=== PATIENT | male | born 1970 | race African-American/Black ===

== ENCOUNTER 2019-11-11 13:07 | Inpatient (IN) | payer SELFPAY ==
[2019-11-11] MEDS ORDERED: NA CHLORIDE 0.9% 1,000 ML ONE ×2 (13:37→15:11)
--- NOTE | 2019-11-11 14:25 | RAD REPORT ---
EXAM DESCRIPTION: RAD - Chest Single View - 11/11/2019 2:04 pm CLINICAL HISTORY: DYSPNEA COMPARISON: No comparisons TECHNIQUE: AP portable chest image was obtained 11/11/2019 2:04 pm . FINDINGS: Mid and lower right lung field parenchymal opacification present. This is most likely pneu monia. This could be infectious or aspiration. Left lung volume is reduced. No acute left lung parenc hymal finding confirmed. There is some patchy opacification in the medial retrocardiac left base. Trach tube is in place. Trachea is midline. Heart and vasculature are normal. No measurable pleural e ffusion and no pneumothorax. No acute bone findings seen. Scoliotic curvature is present in the spine . No acute aortic findings suspected. IMPRESSION: Baseline study showing mid and lower right lung field opacification most likely pneumoni a. Minimal left base opacification could be a minimal infiltrate or baseline parenchymal stranding.
[2019-11-11] MEDS ORDERED: ACETAMINOPHEN 650MG/RECT SUPP PR ONE ×2 (14:34→15:05)
[2019-11-11 14:38] LABS: Absolute Lymphocytes (CBC) 0.8 K/uL (0.7-4.9); Basophils % 0.2 % (0-1.3); Lymphocytes % 4.7 % (15.3-44.8); MPV 7.6 fL (7.6-11.3)
[2019-11-11 14:41] LABS: Protime INR 1.44
[2019-11-11 15:07] LABS: ALT/SGPT 83 U/L (12-78); AST/SGOT 40 U/L (15-37); Albumin 2.6 g/dL (3.4-5.0); Alkaline Phosphatase 74 U/L (45-117); Amylase Level 56 U/L (25-115); BUN Blood Urea Nitrogen 15 mg/dL (7-18); Bicarbonate 33 mmol/L (21-32); Bilirubin Direct 0.1 mg/dL (0-0.2); Bilirubin Total 0.4 mg/dL (0.2-1.0); CKMB Creatine Kinase MB 2.1 ng/mL (0.3-3.6); Creatine Phosphokinase 95 U/L (39-308); Glucose Level 81 mg/dL (74-106); Lipase 33 U/L (73-393); Potassium 3.9 mmol/L (3.5-5.1); Protein, Total 7.3 g/dL (6.4-8.2); Sodium Level 138 mmol/L (136-145); Troponin (Emerg Dept Use Only) < 0.02 ng/mL (0.0-0.045)
[2019-11-11 15:16] LABS: Urine Blood 1+ (NEG); Urine Glucose NEGATIVE (NEG); Urine Protein TRACE (NEG); Urine pH 8.5 (5.0-7.0)
--- NOTE | 2019-11-11 15:21 | EDPHYS ---
Physician Documentation [facility] Name: Ulises Cervantes Age: 49 yrs Sex: Male : 1970 Arrival Date: 11/11/2019 Time: 13:11 Bed 25 Private MD: ED Physician Javed Chung HPI: 11/11 13:30 This 49 yrs old Black Male presents to ER via EMS with complaints of fever. cp 13:30 The patient reports fever, with an emergency department temperature of 100.4 degrees cp Fahrenheit. Onset: The symptoms/episode began/occurred today. Associated signs and symptoms: Pertinent positives: cough. Unable to obtain HPI due to patient non-verbal. Historical: - Allergies: 13:45 tomato; mg2 - PMHx: 13:45 respiratory failure; tracheostomy in situ; aspiration pneumnonia; gastrostomy tube in mg2 situ; - Immunization history:: Flu vaccine status is unknown. - Social history:: Smoking status: unknown. ROS: 13:35 Constitutional: Positive for fever. cp 13:35 Respiratory: Positive for cough. cp 13:35 Unable to obtain ROS due to patient non-verbal. Exam: 13:40 Constitutional: The patient appears in no acute distress, alert, awake, cp non-diaphoretic, non-toxic, well developed, well nourished, obviously ill, restless. 13:40 Head/Face: Normocephalic, atraumatic. cp 13:40 Eyes: Periorbital structures: appear normal, Pupils: equal, round, and reactive to light and accomodation, Conjunctiva: normal, no exudate, no injection, Sclera: no appreciated abnormality, Lids and lashes: appear normal, bilaterally. 13:40 ENT: External ear(s): are unremarkable, Nose: is normal, Mouth: Lips: dry, Oral mucosa: moist, Posterior pharynx: Airway: no evidence of obstruction, patent. 13:40 Neck: External neck: tracheostomy noted, ROM/movement: Meningeal signs: are not present, nuchal rigidity, is not appreciated. 13:40 Chest/axilla: Inspection: normal, Palpation: is normal, no crepitus, no tenderness. 13:40 Cardiovascular: Rate: tachycardic, Rhythm: regular, Edema: is not appreciated, JVD: is not appreciated. 13:40 Respiratory: mild respiratory distress is noted, Respirations: labored breathing, that is mild, Breath sounds: rhonchi, that are moderate, are heard in the right posterior middle lobe and right posterior lower lobe, + upper airway congestion. 13:40 Abdomen/GI: Inspection: abdomen appears normal, Palpation: abdomen is soft and non-tender, in all quadrants, involuntary guarding, is not appreciated. 13:40 Skin: cellulitis, is not appreciated, no rash present. 13:40 Neuro: Orientation: unable to test, patient non-verbal, Motor: moves all fours. 13:45 ECG was reviewed by the Attending Physician. Vital Signs: 13:10 BP 102 / 62; Pulse 116; Resp 24; Temp 100.4(O); Pulse Ox 100% on Non-rebreather mask; mg2 14:00 BP 113 / 78; Pulse 115; Resp 22; Temp 100.5; Pulse Ox 98% on Non-rebreather mask; mg2 14:14 Weight 68.04 kg; mg2 15:14 BP 102 / 68; Pulse 122; Resp 22; Temp 100.5; Pulse Ox 100% on Non-rebreather mask; mg2 16:11 BP 114 / 79; Pulse 112; Resp 22; Temp 99.1(O); Pulse Ox 98% on Non-rebreather mask; mg2 14:14 estimated mg2 MDM: 13:16 Patient medically screened. 13:30 Differential diagnosis: viral Infection, bacterial infection, pneumonia UTI, cp meningitis, sepsis. 15:20 Data reviewed: vital signs, nurses notes, lab test result(s), EKG, radiologic studies, cp plain films, I have discussed the patient's presentation/case with the attending Emergency Department Physician; and as a result, I will admit patient. Physician consultation: Kamaljit Loya DO was called at 15:15, was contacted at 15:15, regarding admission, to the medical/surgical unit. patient's condition. 15:25 Post IV fluid administration reassessment for Sepsis: Focused Assessment performed: November 11, 2019 at 15:25 Heart: Regular rate/rhythm noted. Lungs: Rhonchi noted. Current vital signs reviewed: Yes. Neuro: Neurological examination did not improve from previous exam. Respiratory: Respiratory exam improved from previous exam. 11/11 13:11 Order name: Amylase, Serum; Complete Time: 15:11 mg2 11/11 13:11 Order name: Basic Metabolic Panel; Complete Time: 15:11 mg2 11/11 16:35 Interpretation: Normal except: CO2 33; CA 8.1. cp 11/11 13:11 Order name: Blood Culture Adult (2) mg2 11/11 13:11 Order name: CBC with Diff; Complete Time: 16:34 mg2 11/11 15:12 Interpretation: Normal except: WBC 16.0; RBC 3.70; HGB 10.5; HCT 31.0; MPV 7.6; LUIS% cp 88.5; LYM% 4.7; NEUT A 14.1. 11/11 13:11 Order name: Ckmb; Complete Time: 15:11 mg2 11/11 13:11 Order name: CPK; Complete Time: 15:11 mg2 11/11 13:11 Order name: Lactate; Complete Time: 14:57 mg2 11/11 16:36 Interpretation: Within normal limits: LAC 1.0. cp 11/11 13:11 Order name: LFT's; Complete Time: 15:11 mg2 11/11 16:35 Interpretation: Normal except: AST 40; ALT 83; ALB 2.6; GLOB 4.7; A/G 0.6. cp 11/11 13:11 Order name: Lipase; Complete Time: 15:11 mg2 11/11 13:11 Order name: Procalcitonin; Complete Time: 16:34 mg2 11/11 16:34 Interpretation: Within normal limits: Procalcitonin 0.14. cp 11/11 13:11 Order name: Protime (+inr); Complete Time: 14:57 mg2 11/11 13:11 Order name: Ptt, Activated; Complete Time: 14:57 mg2 11/11 13:11 Order name: Troponin (emerg Dept Use Only); Complete Time: 15:11 mg2 11/11 13:11 Order name: Urine Microscopic Only; Complete Time: 16:34 mg2 11/11 16:34 Interpretation: Normal except: URBC 10-20; UBACT 20-50; SQEPI 5-10; AMORPH 4+. cp 11/11 13:11 Order name: Chest Single View XRAY; Complete Time: 14:57 mg2 11/11 14:57 Interpretation: Report review. cp 11/11 13:11 Order name: Accucheck; Complete Time: 13:46 mg2 11/11 13:11 Order name: Cardiac monitoring; Complete Time: 13:46 mg2 11/11 13:11 Order name: EKG - Nurse/Tech; Complete Time: 13:46 mg2 11/11 13:11 Order name: IV Saline Lock - Large Bore; Complete Time: 13:46 mg2 11/11 13:32 Order name: Influenza Screen (a \T\ B); Complete Time: 14:57 cp 11/11 14:03 Order name: Glucose, Ancillary Testing; Complete Time: 14:57 EDMS 11/11 14:45 Order name: CBC Smear Scan; Complete Time: 16:34 EDMS 11/11 15:14 Order name: Urine Dipstick--Ancillary (enter results); Complete Time: 16:34 dh4 11/11 16:53 Order name: Blood Culture EDID 11/11 17:19 Order name: ABG Arterial Blood Gas EDID 11/11 13:11 Order name: Labs collected and sent; Complete Time: 13:46 mg2 11/11 13:11 Order name: O2 Per Protocol; Complete Time: 13:46 mg2 11/11 13:11 Order name: O2 Sat Monitoring; Complete Time: 13:46 mg2 11/11 13:11 Order name: Urine Dipstick-Ancillary (obtain specimen); Complete Time: 15:13 mg2 EC:45 Rate is 115 beats/min. Rhythm is regular. LA interval is normal. QRS interval is cp normal. QT interval is normal. Interpreted by me. Reviewed by me. Administered Medications: 13:20 Drug: NS 0.9% (30 ml/kg) 30 ml/kg Route: IV; Rate: bolus; Site: right antecubital; mg2 16:30 Follow up: Response: No adverse reaction; IV Status: Completed infusion; IV Intake: mg2 2000ml 15:12 CANCELLED (Physician Discretion): Clindamycin 900 mg IVPB once over 30 mins; (mix in 50 cp mL) 15:14 Drug: Tylenol Suppository 650 mg Route: LA; mg2 16:17 Follow up: Response: No adverse reaction; Temperature is decreased mg2 15:16 CANCELLED (Physician Discretion): vancoMYCIN 1 grams IVPB once over 2 hrs cp 15:30 Drug: Zosyn 3.375 grams Route: IVPB; Infused Over: 60 mins; Site: left forearm; mg2 17:05 Follow up: Response: No adverse reaction; IV Status: Completed infusion mg2 Disposition: 15:30 Chart complete. cp Disposition: 11/11/19 15:19 Hospitalization ordered by Kamaljit Loya for Inpatient Admission. Preliminary diagnosis are Pneumonia due to other specified bacteria, Other sepsis. - Bed requested for Intensive Care Unit. - Status is Inpatient Admission. mg2 - Condition is Stable. - Problem is new. - Symptoms have improved. Addendum: 11/13/2019 17:49 Co-signature as Attending Physician, Javed Chung MD I agree with the assessment and c watkins plan of care. Signatures: Dispatcher [employer] Lily Alex RN RN dw Anderson, Corey, MD MD cha Page, Corey, PA PA cp Chava Bernstein RN RN mg2 Corrections: (The following items were deleted from the chart) 11/11 15:12 14:59 Clindamycin 900 mg IVPB once over 30 mins; (mix in 50 mL) ordered. cp cp 15:16 14:59 vancoMYCIN 1 grams IVPB once over 2 hrs ordered. cp cp 16:02 15:19 Hospitalization Ordered by Kamaljit Loya DO for Inpatient Admission. Preliminary dw diagnosis is Pneumonia due to other specified bacteria; Other sepsis. Bed requested for Telemetry/MedSurg (Inpatient). Status is Inpatient Admission. Condition is Stable. Problem is new. Symptoms have improved. cp 16:05 16:02 11/11/2019 15:19 Hospitalization Ordered by Kamaljit Loya DO for Inpatient dw Admission. Preliminary diagnosis is Pneumonia due to other specified bacteria; Other sepsis. Bed requested for Telemetry/MedSurg (Inpatient). Status is Inpatient Admission. Condition is Stable. Problem is new. Symptoms have improved. dw 16:35 15:11 Normal except: CO2 33. cp cp 17:02 16:05 11/11/2019 15:19 Hospitalization Ordered by Kamaljit Loya DO for Inpatient dw Admission. Preliminary diagnosis is Pneumonia due to other specified bacteria; Other sepsis. Bed requested for Telemetry/MedSurg (Inpatient). Status is Inpatient Admission. Condition is Stable. Problem is new. Symptoms have improved. dw 17:43 17:02 11/11/2019 15:19 Hospitalization Ordered by Kamaljit Loya DO for Inpatient mg2 Admission. Preliminary diagnosis is Pneumonia due to other specified bacteria; Other sepsis. Bed requested for Intensive Care Unit. Status is Inpatient Admission. Condition is Stable. Problem is new. Symptoms have improved. dw
--- NOTE | 2019-11-11 15:21 | ER ---
Nurse's Notes [facility] Name: Ulises Cervantes Age: 49 yrs Sex: Male : 1970 Arrival Date: 11/11/2019 Time: 13:11 Bed 25 Private MD: Diagnosis: Pneumonia due to other specified bacteria;Other sepsis Presentation: 11/11 13:10 Chief complaint: EMS states: he is from [place] and he has fever and had aspiration mg2 pneumonia before. Temp- 100.1, sat- 92%RA, BP of 90/56,. BGL- 161 mg/dl. Coronavirus screen: The patient has NOT traveled to [place] in the past 14 days. Proceed with normal triage procedures. Ebola Screen: No symptoms or risks identified at this time. Initial Sepsis Screen: Does the patient meet any 2 criteria? RR > 20 per min. HR > 90 bpm. Yes Does the patient have a suspected source of infection? Yes: Productive cough/pneumonia. Risk Assessment: Do you want to hurt yourself or someone else? Patient reports no desire to harm self or others. 13:10 Method Of Arrival: EMS: [facility] mg2 13:10 Acuity: KEZIA 2 mg2 13:10 Onset of symptoms was October 2019. mg2 13:10 Care prior to arrival: Medication(s) given: Normal saline infusion, 100 IV initiated. mg2 20 GA, in the left forearm. Historical: - Allergies: 13:45 tomato; mg2 - PMHx: 13:45 respiratory failure; tracheostomy in situ; aspiration pneumnonia; gastrostomy tube in mg2 situ; - Immunization history:: Flu vaccine status is unknown. - Social history:: Smoking status: unknown. Screenin:52 Abuse screen: Denies threats or abuse. Denies injuries from another. Tuberculosis mg2 screening: No symptoms or risk factors identified. Fall Risk IV access (20 points). Mental Status- Overestimates/Forgets Limitations (15 pts.). 15:52 Nutritional screening: No deficits noted. mg2 Assessment: 13:50 General: Appears emaciated, malnourished, Behavior is calm. Pain: Unable to use pain mg2 scale. Patient appears quiet. Neuro: Level of Consciousness is awake, confused. Cardiovascular: Capillary refill < 3 seconds Patient's skin is warm and dry. 13:50 Respiratory: Airway via trache Respiratory effort is even, Respiratory pattern is mg2 regular, symmetrical, Breath sounds with crackles bilaterally. in mediastinum, right upper lobe, left upper lobe, right middle lobe, left lower lobe and right lower lobe secretions noted in the trache. GI: No signs and/or symptoms were reported involving the gastrointestinal system. : No signs and/or symptoms were reported regarding the genitourinary system. EENT: No signs and/or symptoms were reported regarding the EENT system. Derm: Skin is intact, is healthy with good turgor, Skin is pink, warm \T\ dry. normal. Musculoskeletal: Circulation, motion, and sensation intact. Capillary refill < 3 seconds. 15:00 Reassessment: Patient appears in no apparent distress at this time. Patient and/or mg2 family updated on plan of care and expected duration. Pain level reassessed. 17:14 Reassessment: Patient appears in no apparent distress at this time. Patient and/or mg2 family updated on plan of care and expected duration. Pain level reassessed. dr Loya came and assessed the patient, advised that patient should go to ICU for close monitoring of saturation and suctioning. Vital Signs: 13:10 BP 102 / 62; Pulse 116; Resp 24; Temp 100.4(O); Pulse Ox 100% on Non-rebreather mask; mg2 14:00 BP 113 / 78; Pulse 115; Resp 22; Temp 100.5; Pulse Ox 98% on Non-rebreather mask; mg2 14:14 Weight 68.04 kg; mg2 15:14 BP 102 / 68; Pulse 122; Resp 22; Temp 100.5; Pulse Ox 100% on Non-rebreather mask; mg2 16:11 BP 114 / 79; Pulse 112; Resp 22; Temp 99.1(O); Pulse Ox 98% on Non-rebreather mask; mg2 14:14 estimated mg2 ED Course: 13:11 Patient arrived in ED. mg2 13:16 [facility]. cp 13:16 Javed Chung MD is Attending Physician. cp 13:20 Maintain EMS IV. Dressing intact. Good blood return noted. Site clean \T\ dry. Gauge \T\ mg 2 site: 20 \T\ LFA. 13:27 Chava Bernstein RN is Primary Nurse. mg2 13:30 Inserted saline lock: 20 gauge in right antecubital area, using aseptic technique. mg2 Blood collected. 13:43 Triage completed. mg2 13:43 Arm band placed on. mg2 14:05 Chest Single View XRAY In Process Unspecified. EDMS 15:18 Kamaljit Loya DO is Hospitalizing Provider. cp 15:30 Decker cath inserted, using sterile technique, 18 Fr., by ga, balloon inflated, urine mg2 specimen collected. returned clear yellow urine. Patient tolerated well. 50 ml. 15:53 No provider procedures requiring assistance completed. mg2 15:54 Patient has correct armband on for positive identification. Placed in gown. Call light mg2 in reach. Side rails up X2. Door closed. 15:54 Patient admitted, IV remains in place. mg2 Administered Medications: 13:20 Drug: NS 0.9% (30 ml/kg) 30 ml/kg Route: IV; Rate: bolus; Site: right antecubital; mg2 16:30 Follow up: Response: No adverse reaction; IV Status: Completed infusion; IV Intake: mg2 2000ml 15:12 CANCELLED (Physician Discretion): Clindamycin 900 mg IVPB once over 30 mins; (mix in 50 cp mL) 15:14 Drug: Tylenol Suppository 650 mg Route: TN; mg2 16:17 Follow up: Response: No adverse reaction; Temperature is decreased mg2 15:16 CANCELLED (Physician Discretion): vancoMYCIN 1 grams IVPB once over 2 hrs cp 15:30 Drug: Zosyn 3.375 grams Route: IVPB; Infused Over: 60 mins; Site: left forearm; mg2 17:05 Follow up: Response: No adverse reaction; IV Status: Completed infusion mg2 Intake: 16:30 IV: 2000ml; Total: 2000ml. mg2 Outcome: 15:19 Decision to Hospitalize by Provider. cp 17:35 Admitted to ICU accompanied by nurse, via stretcher, room 3, with oxygen, on monitor, mg2 with chart, Report called to ULYSSES HARRISON 17:35 Condition: stable 17:35 Instructed on the need for admit, Demonstrated understanding of instructions. 17:43 Patient left the ED. mg2 Signatures: Dispatcher [employer] [facility] Javed Schaeffer PA PA cp [place], Michele RN RN mg2 Corrections: (The following items were deleted from the chart) 16:20 14:00 Inserted saline lock: 20 gauge in right antecubital area, using aseptic mg2 technique. Blood collected. mg2 16:20 15:54 Maintain EMS IV. Dressing intact. Good blood return noted. Site clean \T\ dry. mg2 Gauge \T\ site: 20 \T\ LFA. mg2 17:13 14:40 Reassessment: Patient appears in no apparent distress at this time. Patient mg2 and/or family updated on plan of care and expected duration. Pain level reassessed. Patient is alert, oriented x 3, equal unlabored respirations, skin warm/dry/pink. mg2 23:44 15:00 BP 113 / 78; Pulse 115bpm; Resp 22bpm; Pulse Ox 98% Non-rebreather mask; Temp mg2 100.5F; mg2
[2019-11-11] MEDS ORDERED: PIPER/TAZO/NS 3.375gm 3.375 GM/100 ML BAG ONE (15:26)
[2019-11-11 15:29] LABS: Blood Morphology Comment NOT SEEN (NOT SEEN); Platelet Estimate ADEQ; Urine White Blood Cell Casts OK
--- NOTE | 2019-11-11 16:19 | P.HP ---
Certification for Inpatient Patient admitted to: Inpatient With expected LOS: >2 Midnights Patient will require the following post-hospital care: Other (Return to residential) Practitioner: I am a practitioner with admitting privileges, knowledge of patient current condition, hospital course, and medical plan of care. Services: Services provided to patient in accordance with Admission requirements found in Title 42 Section 412.3 of the Code of Federal Regulations Patient History Date of Service: 11/11/19 Primary Care Provider: [facility] Reason for admission: Shortness of breath History of Present Illness: 49-year-old male presented to the emergency room with shortness of breath. Most of the information came from the ER provider, nursing , residential. Patient is not able to verbalize. Other information obtained from his mother. Patient with history of Nowata disease. Patient was in the assisted system. Back in July of 2019 he was found unresponsive in his assisted cell. He was transferred to at [facility]. At that time he was intubated. Since that time he has required trach. He recently was discharge to the residential on Thursday. Today he had some shortness of breath. He was brought in by EMS. Patient was slightly tachycardic and tachypneic. White count 16. Hemoglobin 10.5, platelet count of 358. Lactic acid within normal range. Pro calcitonin 0.14. Sodium 138, potassium 3.9, BUN of 15, creatinine 0.5. Chest x-ray shows bilateral pneumonia right greater than left suspect aspiration. Patient was started on IV Zosyn. I was asked to admit the patient for admission. When I saw the patient the ER, he appeared stable. Patient is nonverbal. Patient does not appear septic. Patient appears malnourished. Home medications list reviewed: Yes - Past Medical/Surgical History Diabetic: No -: Nowata's disease -: Schizophrenia -: GERD -: History of aspiration pneumonia now with trach -: PEG tube -: PEG tube placement -: Trach Psychosocial/ Personal History: Patient currently lives at the residential. Prior to this he was a prisoner. Patient still has ankle bracelet. - Family History Family History: Reviewed- Non-Contributory - Social History Smoking Status: Unknown if ever smoked Place of Residence: [facility] Review of Systems is unable to be obtained Physical Examination - Physical Exam General: Other (Patient is nonverbal. Patient appears malnourished. Dry skin noted.) HEENT: Atraumatic, Other (Dry mucous membranes.) Neck: Supple, Other (Trach in place) Respiratory: Crackles/rales (Crackles to the right base) Cardiovascular: Abnormal pulses (Mild sinus tachycardia) Gastrointestinal: Normal bowel sounds, Soft and benign, Non-distended, Other ( Peg tube in place) Musculoskeletal: No tenderness, No warmth Integumentary: Other (Dry skin. Muscle wasting to the upper lower extremities and torso.) Neurological: Other (Patient is nonverbal. Patient with history of Genevieve' s disease.) - Studies Laboratory Data (last 24 hrs) 11/11/19 14:25: PT 16.7 H, INR 1.44, APTT 34.6 11/11/19 14:25: WBC 16.0 H, Hgb 10.5 L, Hct 31.0 L, Plt Count 358 11/11/19 14:25: Sodium 138, Potassium 3.9, BUN 15, Creatinine 0.59, Glucose 81, Total Bilirubin 0.4, AST 40 H, ALT 83 H, Alkaline Phosphatase 74, Amylase 56, Lipase 33 L Microbiology Data (last 24 hrs): 11/11/19 13:35 Nasopharnyx Influenza Type A Antigen Screen - Final 11/11/19 13:35 Nasopharnyx Influenza Type B Antigen Screen - Final Assessment and Plan - Plan Impression: Shortness of breath secondary to recurrent aspiration pneumonia right greater than left complicated with history of prior aspiration pneumonia now with trach Nowata's disease, nonverbal Patient nonverbal Severe protein malnutrition Anemia likely of chronic disease Elevated liver function GERD PEG tube in place Plan: Shortness of breath secondary to recurrent aspiration pneumonia right greater than left complicated with history of prior aspiration pneumonia now with trach : Patient will be admitted for further evaluation and treatment. Plan of care discussed with his mother who makes the medical decisions. Advanced directives address in detail. Mother wishes the patient to be full code. Patient will be admitted for further evaluation and treatment. Will continue with IV Zosyn. Will provide IV fluids. Will monitor continues oxygen saturation. Maintain oxygen above 93%. Respiratory consulted to help with this. Recheck chest x- ray tomorrow. Monitor lab closely. Aspiration and fall precaution in place. Patient will likely require 1 on 1 sitter. Patient has a assurance officer and has an ankle brace. I tried to reach his assurance officer but not successful. Will discuss with mother. Nowata's disease, nonverbal: Will continue with DVT prophylaxis. Mother reports patient with history of Nowata's disease. Patient is nonverbal. Severe protein malnutrition: Patient appears malnourished. Will need to obtain records from residential to see how what the patient has been getting. Will consult dietary for recommendations. Anemia likely of chronic disease: Will monitor closely. Elevated liver function: Will obtain abdominal ultrasound and monitor liver function test. GERD: Will provide PPI PEG tube in place: Dietary consulted to further assess nutrition. Patient is NPO. Discharge Plan: [facility] Plan to discharge in: 72 Hours - Advance Directives Does patient have a Living Will: No Does patient have a Durable POA for Healthcare: No - Code Status/Comfort Care Code Status Assessed: Yes (Patient is full code) Time Spent Managing Pts Care (In Minutes): 55
[2019-11-11 16:26] LABS: Urine Bacteria 20-50 /HPF (NONE SEEN); Urine Culture Reflex Order REFLEXED; Urine Mucus 2+ /HPF (NONE SEEN)
[2019-11-11 16:27] LABS: Urine Amorphous Sediment 4+ /HPF (NONE SEEN)
[2019-11-11] MEDS ORDERED: LORazepam 2 MG/ML VIAL IV PRN (16:48)
[2019-11-11] MEDS ORDERED: ONDANSETRON 4 MG/2 ML VIAL IV PRN (16:48)
[2019-11-11] MEDS ORDERED: ACETAMINOPHEN 500 MG TAB FT PRN (16:48)
[2019-11-11] MEDS ORDERED: RISPERIDONE 1 MG TABLET PO PRN (16:48)
[2019-11-11] MEDS ORDERED: ALBUTEROL 2.5 MG/3 ML NEB SOL NEB PRN (16:48)
[2019-11-11] MEDS ORDERED: SODIUM CHLORIDE 0.9% 10ML INJ IV PRN (16:48)
[2019-11-11] MEDS ORDERED: IPRATROPIUM BROM 0.5MG/2.5ML NEB PRN (16:48)
[2019-11-11] MEDS: PIPER/TAZO/NS 3.375gm 3.375 GM/100 ML BAG IVPB SCH (17:00)
[2019-11-11 17:11] LABS: Arterial Blood Carboxyhemoglob 1.4 % (0-1.5); Blood Gas Oxyhemoglobin 89.8 % (94-97); Blood O2 Saturation 91.9 % (92-98.5)
[2019-11-11] MEDS: D5 0.9 NS 1,000 ML IV SCH (18:19)
[2019-11-11] MEDS: ENOXAPARIN 40 MG/0.4 ML SQ SCH (18:20)
[2019-11-12] MEDS: PIPER/TAZO/NS 3.375gm 3.375 GM/100 ML BAG IVPB SCH ×3 (00:24→17:48)
[2019-11-12 05:13] VITALS: BMI 16.2
[2019-11-12 06:07] LABS: Absolute Lymphocytes (CBC) 0.9 K/uL (0.7-4.9); Basophils % 0.3 % (0-1.3); Hematocrit 27.2 % (39.6-49.0); Lymphocytes % 6.7 % (15.3-44.8); RBC Red Blood Cell Count 3.25 M/uL (4.33-5.43)
[2019-11-12] MEDS: D5 0.9 NS 1,000 ML IV SCH (06:47)
[2019-11-12 06:57] LABS: ALT/SGPT 65 U/L (12-78); AST/SGOT 24 U/L (15-37); Albumin 2.5 g/dL (3.4-5.0); Alkaline Phosphatase 65 U/L (45-117); BUN Blood Urea Nitrogen 11 mg/dL (7-18); Bicarbonate 31 mmol/L (21-32); Bilirubin Total 0.5 mg/dL (0.2-1.0); Glucose Level 83 mg/dL (74-106); Magnesium 1.8 mg/dL (1.8-2.4); Potassium 3.8 mmol/L (3.5-5.1); Protein, Total 6.6 g/dL (6.4-8.2); Sodium Level 140 mmol/L (136-145)
[2019-11-12] MEDS ORDERED: DIAZEPAM 2 MG TABLET FT PRN (07:15)
[2019-11-12] MEDS ORDERED: D5 0.9 NS 1,000 ML IV SCH (08:00)
[2019-11-12] MEDS: CA POLYCARBOPHIL (FIBERCON) 625 MG TAB FT SCH (09:00)
[2019-11-12] MEDS ORDERED: PANTOPRAZOLE 40 MG INJ IVP SCH (09:00)
[2019-11-12] MEDS: SULFASALAZINE FT SCH ×4 (09:00→21:00)
[2019-11-12] MEDS ORDERED: HOME MED 1 EA UNK (Citalopram Hydrobromide [Citalopram Hbr] 20 MG) FT SCH (09:00)
--- NOTE | 2019-11-12 09:03 | P.PN ---
Subjective Date of Service: 11/12/19 Primary Care Provider: correction Chief Complaint: Shortness of breath Subjective: Other (Patient appeared much improved. Patient is nonverbal. Patient better hydrated.) Physical Examination - Vital Signs Temperature: 97.9 F Blood Pressure: 91/62 Pulse: 86 Respirations: 15 Pulse Ox (%): 96 - Physical Exam General: Alert, Other (Patient nonverbal) Neck: Other (Trach appear stable peer) Respiratory: Clear to auscultation bilaterally, Normal air movement Cardiovascular: Normal pulses, Regular rate/rhythm Gastrointestinal: Normal bowel sounds, Soft and benign, Non-distended, Other ( PEG tube in place) - Studies Laboratory Data (last 24 hrs) 11/11/19 14:25: PT 16.7 H, INR 1.44, APTT 34.6 11/11/19 14:25: WBC 16.0 H, Hgb 10.5 L, Hct 31.0 L, Plt Count 358 11/11/19 14:25: Sodium 138, Potassium 3.9, BUN 15, Creatinine 0.59, Glucose 81, Total Bilirubin 0.4, AST 40 H, ALT 83 H, Alkaline Phosphatase 74, Amylase 56, Lipase 33 L Microbiology Data (last 24 hrs): 11/11/19 14:03 Blood - Blood Anaerobic Blood Culture - Final 11/11/19 13:35 Nasopharnyx Influenza Type A Antigen Screen - Final 11/11/19 13:35 Nasopharnyx Influenza Type B Antigen Screen - Final Medications List Reviewed: Yes Assessment & Plan Discharge Plan: Alf Plan to discharge in: 24 Hours Physician Review Additional Text: Impression: Shortness of breath secondary to recurrent aspiration pneumonia right greater than left complicated with history of prior aspiration pneumonia now with trach Genevieve's disease, nonverbal Patient nonverbal Severe protein malnutrition Anemia likely of chronic disease Elevated liver function GERD PEG tube in place Plan: Shortness of breath secondary to recurrent aspiration pneumonia right greater than left complicated with history of prior aspiration pneumonia now with trach : Patient has responded well. Continue with IV Zosyn. Will transfer patient to the floor. Maintain oxygen above 93%. Respiratory to help with this. Will recheck chest x-ray today. Continue monitor lab closely. Patient on DVT prophylaxis. Await further recommendations by pulmonology. Anticipate improvement and possible discharge tomorrow back to the assisted. Ethan's disease, nonverbal: Will adjust medication. Will continue with DVT prophylaxis. Mother reports patient with history of Ethan's disease. Patient is nonverbal. Severe protein malnutrition: Patient appears malnourished. Will need to obtain records from assisted to see how what the patient has been getting. Will consult dietary for recommendations. Anemia likely of chronic disease: Will monitor closely. Elevated liver function: Liver function tests within normal range. Discontinue abdominal ultrasound. GERD: Will provide PPI PEG tube in place: Dietary consulted to further assess nutrition. Patient is NPO. Time Spent Managing Pts Care (In Minutes): 55
--- NOTE | 2019-11-12 09:07 | P.CNS ---
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 admitted with worsening dyspnea as some haziness on the right side possible pneumonia white count elevated patient has a trach and a PEG tube lives in a custodial stable since admission Allergies tomato Allergy (Mild, Verified 11/11/19 16:16) Rash Home Medications: Citalopram Hydrobromide [Citalopram HBr] 20 mg FT DAILY 11/11/19 Ipratropium/Albuterol Sulfate [Iprat-Albut 0.5-3(2.5) mg/3 ml] 1 amp IH Q6H Lactose-Free Food/Fiber [Jevity 1.5 Dax Liquid] 80 ml FT CONT 11/11/19 Omeprazole Magnesium [Prilosec] 40 mg FT DAILY 11/11/19 calcium polycarbophiL [Fibercon*] 1 tab FT DAILY 11/11/19 diazePAM [Diazepam] 1 mg FT BID 11/11/19 risperiDONE [Risperdal 1 mg tab*] 1 mg PO BEDTIME 11/11/19 sulfaSALAzine [Sulfasalazine] 2 tab FT QID 11/11/19 - Past Medical/Surgical History Diabetic: No -: Honaker's disease -: Schizophrenia -: GERD -: History of aspiration pneumonia now with trach -: PEG tube -: PEG tube placement -: Trach Psychosocial/ Personal History: Patient currently lives at the custodial. Prior to this he was a prisoner. Patient still has ankle bracelet. - Social History Smoking Status: Unknown if ever smoked Alcohol use: No CD- Drugs: No Caffeine use: No Place of Residence: Shelter Review of Systems is unable to be obtained Physical Examination Temp Pulse Resp BP Pulse Ox 97.9 F 86 15 91/62 96 11/12/19 09:03 11/12/19 09:03 11/12/19 09:03 11/12/19 09:03 11/12/19 09:03 General: Alert Respiratory: Clear to auscultation bilaterally, Diminished Cardiovascular: No edema, Regular rate/rhythm Gastrointestinal: Normal bowel sounds, Soft and benign Laboratory Data (last 24 hrs) 11/11/19 14:25: PT 16.7 H, INR 1.44, APTT 34.6 11/11/19 14:25: WBC 16.0 H, Hgb 10.5 L, Hct 31.0 L, Plt Count 358 11/11/19 14:25: Sodium 138, Potassium 3.9, BUN 15, Creatinine 0.59, Glucose 81, Total Bilirubin 0.4, AST 40 H, ALT 83 H, Alkaline Phosphatase 74, Amylase 56, Lipase 33 L - Problems (1) Pneumonia Current Visit: Yes Status: Acute Plan: Patient is 49 years of age admitted with worsening shortness of breath the some haziness on the right side elevated white count patient has a trach and a PEG tube Honaker's chorea and schizophrenia lives in a custodial patient is mildly hypoxic agree with Zosyn transfer to the floor cultures all pending resume tube feeds Dc IV fluid use water flushes Qualifiers: Pneumonia type: due to unspecified organism
[2019-11-12] MEDS: CITALOPRAM 10 MG TABLET FT SCH (09:39)
[2019-11-12] MEDS: ENOXAPARIN 40 MG/0.4 ML SQ SCH (09:39)
[2019-11-12] MEDS: Pantoprazole (granules) 40 MG/BLIST PACKET FT SCH (10:19)
[2019-11-12] MEDS: JEVITY 1.5 CAL LIQUID 1,000 ML BOT RTH SCH (10:22)
--- NOTE | 2019-11-12 10:30 | RAD REPORT ---
EXAM DESCRIPTION: RAD - Chest Single View - 11/12/2019 8:26 am CLINICAL HISTORY: follow up pneumonia, aspiration Chest pain. COMPARISON: Chest Single View dated 11/11/2019 FINDINGS: Portable technique limits examination quality. Mild improvement in right lung aeration is seen since yesterday's study. Tracheostomy tube is in unch anged position. The heart is normal in size. No displaced fractures. IMPRESSION: Mild improvement in right lung aeration since comparative study.
[2019-11-12] MEDS ORDERED: RISPERIDONE 1 MG TABLET PO SCH (21:00)
[2019-11-13] MEDS: PIPER/TAZO/NS 3.375gm 3.375 GM/100 ML BAG IVPB SCH ×2 (00:18→09:21)
[2019-11-13] MEDS: Pantoprazole (granules) 40 MG/BLIST PACKET FT SCH (05:17)
[2019-11-13] MEDS: JEVITY 1.5 CAL LIQUID 1,000 ML BOT RTH SCH (05:18)
[2019-11-13 05:58] LABS: Absolute Lymphocytes (CBC) 0.9 K/uL (0.7-4.9); Basophils % 0.4 % (0-1.3); Lymphocytes % 8.9 % (15.3-44.8); MPV 7.8 fL (7.6-11.3); RBC Red Blood Cell Count 3.24 M/uL (4.33-5.43)
[2019-11-13 06:16] LABS: ALT/SGPT 47 U/L (12-78); AST/SGOT 16 U/L (15-37); Albumin 2.3 g/dL (3.4-5.0); Alkaline Phosphatase 73 U/L (45-117); BUN Blood Urea Nitrogen 8 mg/dL (7-18); Bicarbonate 30 mmol/L (21-32); Bilirubin Total 0.2 mg/dL (0.2-1.0); Glucose Level 84 mg/dL (74-106); Magnesium 1.9 mg/dL (1.8-2.4); Potassium 3.8 mmol/L (3.5-5.1); Protein, Total 6.5 g/dL (6.4-8.2); Sodium Level 143 mmol/L (136-145)
--- NOTE | 2019-11-13 07:59 | P.DS ---
Admission Date: 11/11/19 Discharge Date: 11/13/19 Primary Care Provider: halfway Disposition: TRANSFER TO [facility] Discharge Condition: GOOD Reason for Admission: Shortness of breath Consultations: Pulmonary-Dr. Pathak Procedures: Follow up CXR: FINDINGS: Portable technique limits examination quality. Mild improvement in right lung aeration is seen since yesterday's study. Tracheostomy tube is in unchanged position. The heart is normal in size. No displaced fractures. IMPRESSION: Mild improvement in right lung aeration since comparative study. Medical Problem List: Shortness of breath secondary to recurrent aspiration pneumonia right lower lobe with history of prior aspiration pneumonia with trach Genevieve's disease, nonverbal Patient nonverbal Severe protein malnutrition Anemia likely of chronic disease GERD PEG tube in place Schizophrenia Depression Brief History of Present Illness: 49-year-old male presented to the emergency room with shortness of breath. Most of the information came from the ER provider, nursing , long term. Patient is not able to verbalize. Other information obtained from his mother. Patient with history of Genevieve disease. Patient was in the snf system. Back in July of 2019 he was found unresponsive in his snf cell. He was transferred to at [facility]. At that time he was intubated. Since that time he has required trach. He recently was discharge to the long term on Thursday. Today he had some shortness of breath. He was brought in by EMS. Patient was slightly tachycardic and tachypneic. White count 16. Hemoglobin 10.5, platelet count of 358. Lactic acid within normal range. Pro calcitonin 0.14. Sodium 138, potassium 3.9, BUN of 15, creatinine 0.5. Chest x-ray shows bilateral pneumonia right greater than left suspect aspiration. Patient was started on IV Zosyn. I was asked to admit the patient for admission. When I saw the patient the ER, he appeared stable. Patient is nonverbal. Patient does not appear septic. Patient appears malnourished. Hospital Course: Patient presented with shortness of breath from the long term. Patient recently placed to local long term on Thursday. Patient found to have recurrent aspiration pneumonia. Patient was placed on IV antibiotic therapy. Patient improved. Pulmonology was consulted. No further intervention was required. At discharge patient without shortness of breath. At discharge patient will continue with Augmentin 500 mg twice daily for 10 days. Patient may continue with Combivent 1 unit dose 4 times a day. Patient with history of trach. It will be important for the long term to keep head of the bed at 30 to prevent recurrent aspiration. Trach care to be to continued at the long term. Patient is high risk for aspiration. This will need to be monitored closely. Recommend suction as needed. Recommend recheck chest x-ray in 2-4 weeks to monitor resolution. Patient may follow up with pulmonology as an outpatient to further monitor. Patient with Bancroft's disease. Patient is nonverbal and non mobile. Patient mainly at bed rest. If his condition continues to decline family needs to consider hospice. This can be further addressed at the long term. Patient with GERD. At discharge he will continue with Prilosec 40 mg daily. Aspiration precaution in place. Patient with depression and schizophrenia. At discharge he will continue with Celexa 20 mg daily, diazepam 1 mg twice daily, and Risperdal 1 mg at bedtime. This can be further adjusted by long term physician. Patient with PEG tube in place. Patient may continue with nutrition of Jevity 1.5 as previous along with water flushes. Patient with severe protein malnutrition. This can be further monitored by long term physician. Vital Signs/Physical Exam: Temp Pulse Resp BP Pulse Ox 98.5 F 97 H 16 123/71 93 11/13/19 04:00 11/13/19 04:00 11/13/19 04:00 11/13/19 04:00 11/13/19 04:00 General: Alert, Cachectic, Other (Patient is nonverbal) Neck: Supple, Other (Trach in place) Respiratory: Clear to auscultation bilaterally, Normal air movement Cardiovascular: Normal pulses, Regular rate/rhythm Gastrointestinal: Normal bowel sounds, Soft and benign, Non-distended, Other ( PEG tube in place) Neurological: Other (Patient is nonverbal. Nonambulatory.) Laboratory Data at Discharge: WBC 9.6 K/uL (4.3-10.9) D 11/13/19 05:12 Hgb 9.3 g/dL (13.6-17.9) L 11/13/19 05:12 Hct 27.0 % (39.6-49.0) L 11/13/19 05:12 Plt Count 330 K/uL (152-406) 11/13/19 05:12 PT 16.7 SECONDS (9.5-12.5) H 11/11/19 14:25 INR 1.44 11/11/19 14:25 APTT 34.6 SECONDS (24.3-36.9) 11/11/19 14:25 Sodium 143 mmol/L (136-145) 11/13/19 05:12 Potassium 3.8 mmol/L (3.5-5.1) 11/13/19 05:12 BUN 8 mg/dL (7-18) 11/13/19 05:12 Creatinine 0.45 mg/dL (0.55-1.3) L 11/13/19 05:12 Glucose 84 mg/dL (74-106) 11/13/19 05:12 Magnesium 1.9 mg/dL (1.8-2.4) 11/13/19 05:12 Total Bilirubin 0.2 mg/dL (0.2-1.0) 11/13/19 05:12 AST 16 U/L (15-37) 11/13/19 05:12 ALT 47 U/L (12-78) 11/13/19 05:12 Alkaline Phosphatase 73 U/L (45-117) 11/13/19 05:12 Amylase 56 U/L (25-115) 11/11/19 14:25 Lipase 33 U/L (73-393) L 11/11/19 14:25 Home Medications: Citalopram Hydrobromide [Citalopram HBr] 20 mg FT DAILY 11/11/19 Ipratropium/Albuterol Sulfate [Iprat-Albut 0.5-3(2.5) mg/3 ml] 1 amp IH Q6H Lactose-Free Food/Fiber [Jevity 1.5 Dax Liquid] 80 ml FT CONT 11/11/19 Omeprazole Magnesium [Prilosec] 40 mg FT DAILY 11/11/19 calcium polycarbophiL [Fibercon*] 1 tab FT DAILY 11/11/19 diazePAM [Diazepam] 1 mg FT BID 11/11/19 risperiDONE [Risperdal 1 mg tab*] 1 mg PO BEDTIME 11/11/19 sulfaSALAzine [Sulfasalazine] 2 tab FT QID 11/11/19 Amoxicillin/Potassium Clav [Augmentin 500-125 Tablet] 1 each FT BID #20 tablet 11/13/19 New Medications: Amoxicillin/Potassium Clav [Augmentin 500-125 Tablet] 1 each FT BID #20 tablet Patient Discharge Instructions: 1. Patient to return back to long term. 2. Patient presented with shortness of breath from the long term. Patient recently placed to local long term on Thursday. Patient found to have recurrent aspiration pneumonia. Patient was placed on IV antibiotic therapy. Patient improved. Pulmonology was consulted. No further intervention was required. At discharge patient without shortness of breath. At discharge patient will continue with Augmentin 500 mg twice daily for 10 days. Patient may continue with Combivent 1 unit dose 4 times a day. Patient with history of trach. It will be important for the long term to keep head of the bed at 30 to prevent recurrent aspiration. Trach care to be to continued at the long term. Patient is high risk for aspiration. This will need to be monitored closely. Recommend suction as needed. Recommend recheck chest x-ray in 2-4 weeks to monitor resolution. Patient may follow up with pulmonology as an outpatient to further monitor. 3. Patient with Bancroft's disease. Patient is nonverbal and non mobile. Patient mainly at bed rest. If his condition continues to decline family needs to consider hospice. This can be further addressed at the long term. 4. Patient with GERD. At discharge he will continue with Prilosec 40 mg daily. Aspiration precaution in place. 5. Patient with depression and schizophrenia. At discharge he will continue with Celexa 20 mg daily, diazepam 1 mg twice daily, and Risperdal 1 mg at bedtime. This can be further adjusted by long term physician. 6. Patient with PEG tube in place. Patient may continue with nutrition of Jevity 1.5 as previous along with water flushes. Patient with severe protein malnutrition. This can be further monitored by long term physician. Diet: Patient NPO. Continue PEG tube feeds Activity: Bedrest Time spent managing pt's care (in minutes): 55
[2019-11-13] MEDS: SULFASALAZINE FT SCH ×2 (09:00→12:21)
[2019-11-13] MEDS ORDERED: POTASSIUM 25 MEQ EFFERV TAB PO ONE (09:00)
[2019-11-13 09:15] VITALS: O2SAT 95
[2019-11-13] MEDS: CITALOPRAM 10 MG TABLET FT SCH (09:17)
[2019-11-13] MEDS: ENOXAPARIN 40 MG/0.4 ML SQ SCH (09:18)
[2019-11-13] MEDS: CA POLYCARBOPHIL (FIBERCON) 625 MG TAB FT SCH (09:52)
[2019-11-13 12:27] VITALS: BP 109/77; TEMP 99.4
--- NOTE | 2019-11-14 15:41 | EKG ---
Test Date: 2019-11-11 Test Time: 13:36:19 Project Management Instructor: LANE MEASUREMENT RESULTS: Intervals: Rate: 115 MT: 152 QRSD: 82 QT: 330 QTc: 456 Chauvin: P: 69 MT: 152 QRS: 81 T: 76 INTERPRETIVE STATEMENTS: Sinus tachycardia Nonspecific T wave abnormality Abnormal ECG No previous ECG available for comparison Electronically Signed On 11-14-19 15:39:57 WOODS SUPERINTENDENT by Davis Mares
== END 2019-11-13 15:39 | DRG 177 ==
LOC: ER 13:07 → ERHOLD 15:49 → 3RD-ICU 17:10 → 2ND 11-12 11:15
PROVIDERS: ADMIT Family Medicine; ATTEND Family Medicine
DX: J69.0 Pneumonitis due to inhalation of food and vomit (principal); E43 Unspecified severe protein-calorie malnutrition; G10 Huntington's disease; Z68.1 Body mass index [BMI] 19.9 or less, adult; R00.0 Tachycardia, unspecified; F20.9 Schizophrenia, unspecified; K21.9 Gastro-esophageal reflux disease without esophagitis; Z93.0 Tracheostomy status; Z93.1 Gastrostomy status
CPT/HCPCS: 36415; 51702; 71045; 80048; 80053; 80076; 81003; 81015; 82150; 82550; 82553; 82805; 82947; 83605; 83690; 83735; 84145; 84439; 84443; 84484; 85025; 85610; 85730; 87040; 87070; 87077; 87086; 87088; 87186; 87205; 87804; 93005; 94760; 96361; 96365; 99285; J1650; J2543; J7030; J7042

== ENCOUNTER 2019-11-17 10:41 | Inpatient (IN) | payer MEDICAID, SELFPAY ==
[2019-11-17] MEDS ORDERED: D50W 25 GM/50 ML SYRINGE/VIAL IV ONE (11:08)
[2019-11-17] MEDS ORDERED: NA CHLORIDE 0.9% 1,000 ML ONE (11:10)
[2019-11-17] MEDS ORDERED: ACETAMINOPHEN 650MG/RECT SUPP PR ONE ×2 (11:17→17:58)
[2019-11-17 11:34] LABS: Absolute Lymphocytes (CBC) 0.4 K/uL (0.7-4.9); Basophils % 0.2 % (0-1.3); Hematocrit 35.9 % (39.6-49.0); Lymphocytes % 2.3 % (15.3-44.8); MPV 7.9 fL (7.6-11.3); RBC Red Blood Cell Count 4.15 M/uL (4.33-5.43)
[2019-11-17 11:45] LABS: Urine Bacteria 20-50 /HPF (NONE SEEN); Urine Culture Reflex Order REFLEXED; Urine RBC <5 /HPF (NONE SEEN)
[2019-11-17 11:46] LABS: Urine Coarse Granular Casts 0-5 /LPF (NONE SEEN); Urine Mucus LIGHT /HPF (NONE SEEN)
[2019-11-17 11:46] LABS: Urine Blood NEGATIVE (NEG); Urine Glucose 2+ (NEG); Urine Protein 1+ (NEG); Urine Specific Gravity >1.030 (1.005-1.030)
--- NOTE | 2019-11-17 11:47 | RAD REPORT ---
EXAM DESCRIPTION: RAD - Chest Single View - 11/17/2019 11:36 am CLINICAL HISTORY: DYSPNEA, code sepsis chest exam, decreased respirations COMPARISON: Chest Single View dated 11/12/2019; Chest Single View dated 11/11/2019 TECHNIQUE: AP portable chest image was obtained 11/17/2019 11:36 am . FINDINGS: Trach tube is in place. Right lung parenchymal opacification is present but has shown impr ovement since prior imaging. No diffuse pulmonary edema or large consolidation identified. [place]-s haped opacification left base is believed be part of diaphragm or possibly atelectatic lung. This is not a typical presentation of pneumonia. Heart and vasculature are normal. No measurable pleural effusion and no pneumothorax. Prominent scoli otic curvature again noted. No acute aortic findings suspected. IMPRESSION: No diffuse pulmonary edema or new pneumonia change. Patchy right lung field opacification has shown continued improvement on serial imaging.
[2019-11-17 11:51] LABS: Protime INR 1.04
[2019-11-17 12:06] LABS: Albumin 3.1 g/dL (3.4-5.0); Bilirubin Direct 0.1 mg/dL (0-0.2); Bilirubin Total 0.3 mg/dL (0.2-1.0); CKMB Creatine Kinase MB 4.3 ng/mL (0.3-3.6); Protein, Total 8.7 g/dL (6.4-8.2); Troponin (Emerg Dept Use Only) 0.1 ng/mL (0.0-0.045)
[2019-11-17] MEDS ORDERED: NOREPINEPHRINE 4 MG in D5W 250 ML IV PRN (12:31)
[2019-11-17] MEDS ORDERED: NA CHLORIDE 0.9% 500 ML ONE ×2 (12:35→14:40)
[2019-11-17] MEDS ORDERED: VANCOMYCIN/NS 1 gm 1 GM/250 ML BAG IV ONE (12:45)
[2019-11-17] MEDS: NA CHLORIDE 0.9% 1,000 ML IV SCH ×3 (14:00→18:32)
[2019-11-17 14:36] LABS: Platelet Estimate ADEQ; Urine White Blood Cell Casts OK
[2019-11-17 14:37] LABS: Anisocytosis 1+; Blood Morphology Comment NOTED (NOT SEEN); Stomatocytes 1+
--- NOTE | 2019-11-17 14:42 | RAD REPORT ---
EXAM DESCRIPTION: US - Renal Ultrasound-Complete - 11/17/2019 2:23 pm CLINICAL HISTORY: Acute renal insufficiency COMPARISON: None. FINDINGS: The right kidney measures 11 cm with an increased echotexture. The evaluation of the left kidney is nondiagnostic Hydronephrosis is not seen. The bladder is decompressed and poorly evaluated. IMPRESSION: Increased renal echotexture consistent with parenchymal disease Evaluation of the left kidney is nondiagnostic secondary to technical factors. It probably is echogen ic which made it more difficult to evaluate
--- NOTE | 2019-11-17 14:50 | EDPHYS ---
Physician Documentation [facility] Name: Ulises Cervantes Age: 49 yrs Sex: Male : 1970 Arrival Date: 11/17/2019 Time: 10:49 Bed 4 Private MD: ED Physician Codey Still HPI: 11/16 10:52 This 49 yrs old Black Male presents to ER via Unassigned with complaints of Respiratory kdr Distress. 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 There was no kdr report of any other unusual activities or events prior to this occurring. The patient had a recent admission for sepsis. Historical: - Allergies: 10:55 tomato; iw - PMHx: 10:55 aspiration pneumnonia; gastrostomy tube in situ; respiratory failure; tracheostomy in iw situ; - Immunization history:: Adult Immunizations unknown. - Social history:: Smoking status: unknown. ROS: 10:55 Constitutional: Unable to assess due to vegetative state kdr 10:55 Unable to obtain ROS due to patient is in a persistent vegetative state. Exam: 10:55 Constitutional: This is a well developed, poorly nourished patient who is obtunded kdr alert, and in no apparent distress. Head/Face: Normocephalic, atraumatic. Chest/axilla: Normal chest wall appearance and motion. Nontender with no deformity. No lesions are appreciated. Cardiovascular: Regular rate and rhythm with a normal S1 and S2. No gallops, murmurs, or rubs. Normal PMI, no JVD. No pulse deficits. Respiratory: Lungs have equal breath sounds bilaterally, clear to auscultation and percussion. No rales, rhonchi or wheezes noted. No increased work of breathing, no retractions or nasal flaring. Abdomen/GI: Soft, non-tender, with normal bowel sounds. No distension or tympany. No guarding or rebound. No evidence of tenderness throughout. MS/ Extremity: Pulses equal, no cyanosis. Neurovascular intact. Limited ROM due to contracted state Vital Signs: 10:40 BP 155 / 110; Pulse 127; Resp 24 A; Temp 101.3(R); Pulse Ox 100% on ETT vent; iw 11:08 BP 112 / 85; Pulse 128; Resp 20 A; Pulse Ox 98% on ETT vent; Weight 52.62 kg; iw 12:07 BP 84 / 49; Pulse 105; Resp 16; Pulse Ox 95% on ETT vent; ss 12:12 BP 76 / 48; Pulse 102; Resp 14; Temp 99.1(C); Pulse Ox 92% on ETT vent; ss 12:41 BP 74 / 44; Pulse 116; Resp 16; Temp 98.3(C); Pulse Ox 98% on ETT vent; mh5 13:30 BP 125 / 67; Pulse 108; Resp 18; Temp 98.5(C); Pulse Ox 98% on ETT vent; mh5 14:30 BP 87 / 69; Pulse 123; Resp 18; Temp 98.7(C); Pulse Ox 98% on ETT vent; mh5 15:00 BP 106 / 45; Pulse 101; Resp 19; Temp 99(C); Pulse Ox 98% on 40% FiO2 ETT vent; rv 15:30 BP 81 / 60; Pulse 103; Resp 18; Temp 99; Pulse Ox 100% on 40% FiO2 ETT vent; rv 16:00 BP 84 / 70; Pulse 102; Resp 19; Temp 99; Pulse Ox 100% on 40% FiO2 ETT vent; rv 16:30 BP 98 / 64; Pulse 108; Resp 18; Temp 100; Pulse Ox 100% on 40% FiO2 ETT vent; rv 17:00 BP 105 / 69; Pulse 104; Resp 18; Temp 100.2; Pulse Ox 100% on 40% FiO2 ETT vent; rv 17:15 BP 101 / 64; Pulse 101; Resp 19; Temp 100; Pulse Ox 100% on 40% FiO2 ETT vent; rv 18:00 BP 111 / 69; Pulse 112; Resp 15; Temp 100.4; Pulse Ox 100% on 40% FiO2 ETT vent; rv Jared Coma Score: 17:15 Eye Response: none(1). Verbal Response: none(1). Motor Response: withdraws from rv pain(4). Total: 6. 18:24 Eye Response: none(1). Verbal Response: none(1). Motor Response: withdraws from rv pain(4). Total: 6. MDM: 14:50 Patient medically screened. kdr 14:50 Data reviewed: vital signs, nurses notes, lab test result(s), radiologic studies. kdr 11/16 10:51 Order name: Amylase, Serum kdr 11/16 10:51 Order name: Basic Metabolic Panel kdr 11/16 10:51 Order name: Blood Culture Adult (2) kdr 11/16 10:51 Order name: CBC with Diff kdr 11/16 10:51 Order name: Ckmb kdr 11/16 10:51 Order name: CPK kdr 11/16 10:51 Order name: Lactate; Complete Time: 12:09 kdr 11/16 10:51 Order name: LFT's kdr 11/16 10:51 Order name: Lipase kdr 11/16 10:51 Order name: Procalcitonin; Complete Time: 12:09 kdr 11/16 10:51 Order name: Protime (+inr) kdr 11/16 10:51 Order name: Ptt, Activated kdr 11/16 10:51 Order name: Troponin (emerg Dept Use Only) kdr 11/16 10:51 Order name: Urine Microscopic Only; Complete Time: 12:09 kdr 11/16 10:51 Order name: Chest Single View XRAY [facility] 11/16 11:10 Order name: Glucose, Ancillary Testing [facility] 11/16 11:25 Order name: Urine Dipstick--Ancillary (enter results) em1 11/16 11:47 Order name: Urine Dipstick-Ancillary [facility] 11/16 12:01 Order name: Urine Culture [facility] 11/16 12:01 Order name: RAD; Complete Time: 12:09 EDMS 11/16 12:49 Order name: CBC Smear Scan [facility] 11/16 13:24 Order name: Glucose, Ancillary Testing [facility] 11/16 14:50 Order name: US [facility]PA 11/16 15:08 Order name: Lactate Sepsis 2 HR Follow-up EDPA 11/16 18:25 Order name: ABG Arterial Blood Gas EDMS 11/16 10:51 Order name: Accucheck; Complete Time: 11:10 kdr 11/16 10:51 Order name: Cardiac monitoring; Complete Time: 11:10 kdr 11/16 10:51 Order name: EKG - Nurse/Tech; Complete Time: 16:44 kdr 11/16 10:51 Order name: IV Saline Lock - Large Bore; Complete Time: 11:10 kdr 11/16 10:51 Order name: Labs collected and sent; Complete Time: 11:10 kdr 11/16 10:51 Order name: O2 Per Protocol; Complete Time: 11:10 kdr 11/16 10:51 Order name: O2 Sat Monitoring; Complete Time: 11: kdr 11/16 10:51 Order name: Urine Dipstick-Ancillary (obtain specimen); Complete Time: 11:25 kdr 11/16 10:58 Order name: Decker; Complete Time: 11:10 kdr Administered Medications: 11:02 Drug: D50W 50 ml Route: IVP; Site: right forearm; ss 12:00 Follow up: Response: Blood sugar is lowered ss 11:10 Drug: NS 0.9% (30 ml/kg) 30 ml/kg Route: IV; Rate: bolus; Site: right forearm; ss 13:58 Follow up: IV Status: Completed infusion; IV Intake: 1500ml ss 11:47 Drug: Cefepime 1 grams Route: IVPB; Rate: 200 ml/hr; Infused Over: 30 mins; Site: left ss antecubital; 18:26 Follow up: IV Status: Completed infusion rv 12:00 Drug: Tylenol Suppository 650 mg Route: VA; ss 13:57 Follow up: Response: No adverse reaction; Blood sugar is lowered ss 12:40 Drug: vancoMYCIN 1 grams Route: IVPB; Infused Over: 2 hrs; Site: right antecubital; ss 15:05 Follow up: IV Status: Completed infusion; IV Intake: 250ml rv 15:05 Drug: Norepinephrine (4 mg/250 mL D5W) 4 mcg/min {Note: MIDLINE.} Route: IV; Rate: rv calculated rate; Site: Other; 15:05 Follow up: Rate change 5 Titrate rv 18:25 Follow up: IV Status: Infusion continued upon transfer rv Disposition: 11/17/19 14:50 Hospitalization ordered by Selina Nicole for Inpatient Admission. Preliminary diagnosis is Sepsis, unspecified organism. - Bed requested for Intensive Care Unit. - Status is Inpatient Admission. rv - Condition is Serious. - Problem is an acute exacerbation. - Symptoms have improved. Critical care time excluding procedures: 14:50 Critical care time: Bedside Care: 45 minutes. Total time: 45 minutes kdr Signatures: Dispatcher [employer] Codey Cole MD MD [facility] Zuri Woody RN RN Serene Fischer RN RN Alex Montes RN RN ja1 Jakob Salazar RN RN rv Corrections: (The following items were deleted from the chart) 14:51 14:50 Hospitalization Ordered by Selina Nicole MD for Inpatient Admission. Preliminary iw diagnosis is Sepsis, unspecified organism. Bed requested for Intensive Care Unit. Status is Inpatient Admission. Condition is Serious. Problem is an acute exacerbation. Symptoms have improved. kdr 16:04 14:51 11/17/2019 14:50 Hospitalization Ordered by Selina Nicole MD for Inpatient ja1 Admission. Preliminary diagnosis is Sepsis, unspecified organism. Bed requested for [facility] ER HOLD. Status is Inpatient Admission. Condition is Serious. Problem is an acute exacerbation. Symptoms have improved. iw 18:27 16:04 11/17/2019 14:50 Hospitalization Ordered by Selina Nicole MD for Inpatient rv Admission. Preliminary diagnosis is Sepsis, unspecified organism. Bed requested for Intensive Care Unit. Status is Inpatient Admission. Condition is Serious. Problem is an acute exacerbation. Symptoms have improved. ja1
--- NOTE | 2019-11-17 14:50 | ER ---
Nurse's Notes [facility] Name: Ulises Cervantes Age: 49 yrs Sex: Male : 1970 Arrival Date: 11/17/2019 Time: 10:49 Bed 4 Private MD: Diagnosis: Sepsis, unspecified organism Presentation: 11/16 10:40 Chief complaint: EMS states: [facility] reported that pt stopped spontaneous iw respirations approx 35-40 minutes ago, pt has trache, assisted ventilations by [facility] staff, EMs reports pt has no response to pain, no purposeful movement, SpO2 was 80% on scene, up to 95% per EMS , tachycardic temp was 99.2 per EMS. Coronavirus screen: The patient has NOT traveled to a country currently being monitored by the CDC within the last 14 days. Proceed with normal triage procedures. Ebola Screen: Patient negative for fever greater than or equal to 101.5 degrees Fahrenheit, and additional compatible Ebola Virus Disease symptoms Patient denies exposure to infectious person. Patient denies travel to an Ebola-affected area in the 21 days before illness onset. No symptoms or risks identified at this time. 10:40 Method Of Arrival: EMS: [facility] iw 10:54 Initial Sepsis Screen: Does the patient meet any 2 criteria? RR > 20 per min. Temp iw <36.0*C (96.8*F)) or > 38.3*C (100.9*F). Altered Mental Status. HR > 90 bpm. Does the patient have a suspected source of infection? Yes: Productive cough/pneumonia If YES to both, name of provider notified: Codey Still MD Risk Assessment: Do you want to hurt yourself or someone else? Unable to obtain. 10:54 Acuity: KEZIA 1 iw 18:27 Onset of symptoms is unknown. rv Triage Assessment: 14:00 Respiratory: Reports shortness of breath at rest air hunger Onset: The symptoms/episode rv began/occurred suddenly, the patient has severe shortness of breath. Historical: - Allergies: 10:55 tomato; iw - PMHx: 10:55 aspiration pneumnonia; gastrostomy tube in situ; respiratory failure; tracheostomy in iw situ; - Immunization history:: Adult Immunizations unknown. - Social history:: Smoking status: unknown. Screenin:07 Abuse screen: Denies threats or abuse. Denies injuries from another. Nutritional rv screening: No deficits noted. Tuberculosis screening: No symptoms or risk factors identified. Fall Risk None identified. Assessment: 10:40 General: Appears distressed, uncomfortable, ill, slender, cachectic, Behavior is ss unresponsive. Pain: Unable to use pain scale. Does not appear to understand pain scale. Patient is unresponsive. Neuro: Level of Consciousness is lethargic, unresponsive, Oriented to none. Cardiovascular: Capillary refill is sluggish Rhythm is sinus tachycardia. Respiratory: Airway via trache PT arrived with ventilations assisted with BVM Respiratory effort is assisted Respiratory pattern is symmetrical, Breath sounds are coarse bilaterally. EENT: Derm: Skin temperature is warm Stage II decubitus noted to coccyx. 10:40 GI: Abdomen is flat, non-distended. GI:. : No signs and/or symptoms were reported ss regarding the genitourinary system. Musculoskeletal: Range of motion: limited in all extremities. 11:45 Reassessment: Patient placed on mechanical ventilator VIA tracheostomy. Cleaned of ss bowel incontinence. Linens changed. 11:45 Cardiovascular: Pulses are palpable in right radial artery, right femoral artery, right ss posterior tibial artery, left radial artery, left femoral artery and left posterior tibial artery. Respiratory: Airway is patent Respiratory effort is even, unlabored, Respiratory pattern is symmetrical. 12:30 Reassessment: Patient appears in no apparent distress at this time. Neuro: Level of ss Consciousness is responds to painful stimuli. Oriented to none. Respiratory: Respiratory effort is even, Respiratory pattern is symmetrical. EENT: Oral mucosa is dry. Derm: Skin is dry, Skin temperature is warm. 13:30 Reassessment: unsuccessful attempt obtaining central line access. pressure dressing ss placed. No active bleeding noted, no swelling to area. 13:30 Respiratory: Airway is patent via trache Respiratory effort is even, unlabored. ss 14:00 Reassessment: Unsuccessful attempt obtaining central line access. No bleeding or ss redness noted to puncture site. Pressure dressing placed. Derm: Skin with poor turgor Skin is dry. 14:10 Reassessment: Report given to ULYSSES [place]. ss 14:30 General: Appears comfortable, Behavior is calm. Pain: Unable to use pain scale. Patient rv is unresponsive. Neuro: Level of Consciousness is RESPONDS TO PAIN. Cardiovascular: Patient's skin is warm and dry. Rhythm is sinus tachycardia. Respiratory: Airway via trache Respiratory effort is Breath sounds with wheezes bilaterally. Derm: Skin with poor turgor. 16:42 Reassessment: Patient appears in no apparent distress at this time. Patient is alert, rv oriented x 3, equal unlabored respirations, skin warm/dry/pink. GCS 6, SUCTIONING DONE WITH SMALL AMOUNT OF CLEAR SECRETION. CURRENT RATE OF LEVOPHED IS AT 5MCG/HR INFUSING WELL ON THE RIGHT UPPER ARM. AWAITING ICU BED/NURSE. Vital Signs: 10:40 BP 155 / 110; Pulse 127; Resp 24 A; Temp 101.3(R); Pulse Ox 100% on ETT vent; iw 11:08 BP 112 / 85; Pulse 128; Resp 20 A; Pulse Ox 98% on ETT vent; Weight 52.62 kg; iw 12:07 BP 84 / 49; Pulse 105; Resp 16; Pulse Ox 95% on ETT vent; ss 12:12 BP 76 / 48; Pulse 102; Resp 14; Temp 99.1(C); Pulse Ox 92% on ETT vent; ss 12:41 BP 74 / 44; Pulse 116; Resp 16; Temp 98.3(C); Pulse Ox 98% on ETT vent; mh5 13:30 BP 125 / 67; Pulse 108; Resp 18; Temp 98.5(C); Pulse Ox 98% on ETT vent; mh5 14:30 BP 87 / 69; Pulse 123; Resp 18; Temp 98.7(C); Pulse Ox 98% on ETT vent; mh5 15:00 BP 106 / 45; Pulse 101; Resp 19; Temp 99(C); Pulse Ox 98% on 40% FiO2 ETT vent; rv 15:30 BP 81 / 60; Pulse 103; Resp 18; Temp 99; Pulse Ox 100% on 40% FiO2 ETT vent; rv 16:00 BP 84 / 70; Pulse 102; Resp 19; Temp 99; Pulse Ox 100% on 40% FiO2 ETT vent; rv 16:30 BP 98 / 64; Pulse 108; Resp 18; Temp 100; Pulse Ox 100% on 40% FiO2 ETT vent; rv 17:00 BP 105 / 69; Pulse 104; Resp 18; Temp 100.2; Pulse Ox 100% on 40% FiO2 ETT vent; rv 17:15 BP 101 / 64; Pulse 101; Resp 19; Temp 100; Pulse Ox 100% on 40% FiO2 ETT vent; rv 18:00 BP 111 / 69; Pulse 112; Resp 15; Temp 100.4; Pulse Ox 100% on 40% FiO2 ETT vent; rv [place] Coma Score: 17:15 Eye Response: none(1). Verbal Response: none(1). Motor Response: withdraws from rv pain(4). Total: 6. 18:24 Eye Response: none(1). Verbal Response: none(1). Motor Response: withdraws from rv pain(4). Total: 6. ED Course: 10:45 monitor worker on. Pulse ox on. NIBP on. ss 10:49 Patient arrived in ED. iw 10:50 Codey Still MD is Attending Physician. kdr 10:54 Triage completed. iw 10:55 Arm band placed on. iw 11:00 Maintain EMS IV. Dressing intact. Site clean \T\ dry. Gauge \T\ site: 22 gauge in R forearm.ss 11:30 Ovalles cath inserted, using sterile technique, 16 Fr., by pulp maker, balloon inflated, to ss gravity drainage, urine specimen collected. other Corticore ovalles placed for continuous temperature reading. 11:42 Serene Fischer RN is Primary Nurse. ss 12:00 Inserted saline lock: 20 gauge in left antecubital area, using aseptic technique. Blood ss collected. 12:51 Patient has correct armband on for positive identification. Placed in gown. Bed in low mh5 position. Call light in reach. Side rails up X 1. Adult w/ patient. Warm blanket given. monitor worker on. Pulse ox on. NIBP on. 13:30 Assisted provider with central line placement. Set up central line tray. Triple lumen ss line placed in right femoral. Line placed by Codey Still MD Patient tolerated well. unsuccessful attempt. Pressure dressing applied. Will attempt L groin momentarily. 14:00 Assisted provider with central line placement. Set up central line tray. Triple lumen ss line placed in left femoral. Line placed by Codey Still MD Patient tolerated well. unsuccessful attempt. Pressure dressing applied. 14:49 Selina Nicole MD is Hospitalizing Provider. kdr 14:52 Primary Nurse role handed off by Serene Fischer RN iw 14:52 aJkob Salazar RN is Primary Nurse. iw 15:04 Accessed midline 20G X 8 CM POWERGLIDE RIGHT UPPER ARM Clean \T\ dry. Dressing intact. rv Good blood return. Flushes easily. 15:07 Inserted saline lock: 22 gauge in left antecubital area, using aseptic technique. rv Maintain EMS IV. Dressing intact. Site clean \T\ dry. Gauge \T\ site: 20G RIGHT AC. 18:26 IV is patent, with fluids infusing freely, with good blood return, Flushed right rv Patient admitted, IV remains in place. Administered Medications: 11:02 Drug: D50W 50 ml Route: IVP; Site: right forearm; ss 12:00 Follow up: Response: Blood sugar is lowered ss 11:10 Drug: NS 0.9% (30 ml/kg) 30 ml/kg Route: IV; Rate: bolus; Site: right forearm; ss 13:58 Follow up: IV Status: Completed infusion; IV Intake: 1500ml ss 11:47 Drug: Cefepime 1 grams Route: IVPB; Rate: 200 ml/hr; Infused Over: 30 mins; Site: left ss antecubital; 18:26 Follow up: IV Status: Completed infusion rv 12:00 Drug: Tylenol Suppository 650 mg Route: WV; ss 13:57 Follow up: Response: No adverse reaction; Blood sugar is lowered ss 12:40 Drug: vancoMYCIN 1 grams Route: IVPB; Infused Over: 2 hrs; Site: right antecubital; ss 15:05 Follow up: IV Status: Completed infusion; IV Intake: 250ml rv 15:05 Drug: Norepinephrine (4 mg/250 mL D5W) 4 mcg/min {Note: MIDLINE.} Route: IV; Rate: rv calculated rate; Site: Other; 15:05 Follow up: Rate change 5 Titrate rv 18:25 Follow up: IV Status: Infusion continued upon transfer rv Intake: 13:58 IV: 1500ml; Total: 1500ml. ss 15:05 IV: 250ml; Total: 1750ml. rv Outcome: 14:50 Decision to Hospitalize by Provider. kdr 18:26 Admitted to ICU accompanied by nurse, accompanied by tech, via stretcher, room 6, with rv oxygen, on monitor, with chart, Report called to barrett hall 18:26 Condition: stable 18:26 Instructed on 18:27 Patient left the ED. rv Signatures: Codey Still MD MD [facility] Zuri Woody RN RN Serene Fischer RN RN Haritha Croft [facility] Jakob Salazar RN RN rv Corrections: (The following items were deleted from the chart) 10:54 10:54 Acuity: KEZIA 2 iw iw 10:59 10:40 Pulse 127bpm; Resp 24bpm; Assisted; Pulse Ox 100% ET / Ventilator; Temp 101.3F iw Rectal; iw 11:12 11:08 BP 112 / 85; Pulse 128bpm; Resp 20bpm; Assisted; Pulse Ox 98% ET / Ventilator; iw iw 13:54 12:41 BP 74 / 44; Pulse 116bpm; Resp 16bpm; Pulse Ox 98% Venturi mask; Temp 98.3F mh5 Catheter; mh5 16:40 11:45 Reassessment: Patient placed on mechanical ventilator VIA tracheostomy. Cleaned ss of bowel incontinence. Linens changed. 16:46 13:30 Reassessment: Assisting Dr. Still with central line insertion R femoral. [facility]
--- NOTE | 2019-11-17 17:02 | CON ---
Date of Consultation: 11/17/2019 Reason For Consultation: Elevated BUN and creatinine, alkalosis, electrolyte imbalance. History Of Present Illness: This is a 49-year-old gentleman. All the information has been obtained from the record as the patient is non verbal. This is an unfortunate 49-year-old gentleman with significant past medical history of disease, psychosis. Patient had a trach secondary to respiratory failure, bilateral pneumonia. Patient in prison, recently admitted to the hospital, discharged from our hospital on november 12 with MRSA pneumonia, placed on Ceftin . Apparently, patient was found in the prison poorly responsive with hypoxemia. The patient was transferred to the ER, found to be in septic shock with blood pressure down to the 70. Hypoxemic, the patient was connected to the vent. Start sepsis protocol. Past Medical History: Includes: 1. Respiratory failure. 2. DM disease. 3. MRSA pneumonia. Social History: Lives in prison. Past Surgical History: Includes: 1. Tracheostomy. 2. PEG tube placement. Family History: None obtainable. Review of Systems: None obtainable. Physical Examination: Vital Signs: When I saw the patient, blood pressure 76/50, pulse of 88. Chest: Crackles bilateral. Heart: S1, S2. Systolic murmur. Abdomen: Soft, nontender. Extremities: No edema. The patient wasted. Neuro: Poorly responsive. Laboratory Data: For the patient, WBC 18.2, H and H 11.7/35.9, platelets 424. Sodium 141, potassium 5, bicarb 36, BUN 31, creatinine 1.6, calcium 9.1. Lipase 420. Previous lab data back in November: Creatinine 0.4. GFR above 90. H and H 9.3/27. ABG. Urinalysis today, specific gravity above 1.030, bacteria positive, WBC of 10, +1 protein. Cultures from previous admission include Providencia and MRSA, sensitive to Ceftin, and MRSA sensitive to vancomycin. Current Medications: In the hospital include: 1. Vancomycin. 2. Levophed. Assessment And Plan: 1. Acute kidney injury secondary to prerenal, poor perfusion, superimposed with toxic acute tubular necrosis secondary to sepsis. I am going to go ahead and start fluid resuscitation. We will bolus the patient with another liter and we will agree with Levophed. We will send for protein/creatinine, and send urine eosinophil to rule out any acute interstitial nephritis given the recent exposure to antibiotic. 2. Septic shock. We will add cephalosporin given the finding of old culture. 3. We will resuscitate the patient with fluid and we will continue to monitor the patient. I agree with Levophed. Currently, the source is possible pneumonia/urinary tract infection. 4. Contraction alkalosis, secondary to dehydration. We will continue intravenous fluid. 5. Hyperkalemia, marginal, secondary to renal failure. We will start aggressive hydration. Thank you Dr. Nicole, for allowing us to participate in the care of your patient. BEAU Voice ID: [id number] Report ID: [id number] ARIEL
[2019-11-17] MEDS ORDERED: NA CHLORIDE 0.9% 1,000 ML IV SCH (17:49)
[2019-11-17] MEDS ORDERED: ONDANSETRON 4 MG/2 ML VIAL IV PRN (17:49)
[2019-11-17] MEDS ORDERED: ACETAMINOPHEN 500 MG TAB PO PRN (17:49)
[2019-11-17] MEDS ORDERED: ALBUTEROL 2.5 MG/3 ML NEB SOL NEB PRN (17:49)
[2019-11-17 18:23] LABS: Arterial Blood Carboxyhemoglob 0.9 % (0-1.5)
[2019-11-17] MEDS ORDERED: SODIUM CHL 0.9% 1000 ML BAG IV ONE (19:00)
[2019-11-17 20:09] LABS: Urine Protein/Creatinine Ratio 0.89 ratio (<0.15)
[2019-11-17] MEDS: ENOXAPARIN 40 MG/0.4 ML SQ SCH (20:12)
[2019-11-17] MEDS: CEFEPIME/SWI 2gm 2 GM/20 ML SYR IVP SCH (20:12)
[2019-11-17] MEDS: METHYLPREDNISOLONE 40 MG INJ IV SCH (20:13)
[2019-11-17] MEDS ORDERED: VANCOMYCIN 250 MG in NA CHLORIDE 0.9% 100 ML IVPB ONE (21:00)
[2019-11-17] MEDS ORDERED: VANCOMYCIN 1.25 GM in NA CHLORIDE 0.9% 250 ML IVPB SCH (21:00)
[2019-11-17] MEDS ORDERED: CEFEPIME 2 GM VIAL IV SCH (21:00)
--- NOTE | 2019-11-17 22:02 | HP ---
Date of Admission: 11/17/2019 Code Status: Full. Chief Complaint: Sepsis, pneumonia. History Of Present Illness: Patient is a 49-year-old who was recently discharged from the hospital on 11/13/2019, with pneumonia with sputum cultures positive for MRSA and Providencia, comes back from the nursing facility due to fever, tachycardia, found to be septic and having worsening pneumonia. The patient's symptoms are constant, moderate, progressively worsening. Most of the information is from the ER provider, care home, and staff. Patient is not able to verbalize. He is a [facility]key of the [facility]. The patient's workup in the ER revealed a lactate of 3.2. Procalcitonin was 5.88. WBC count 18,000. Kidney functions elevated to 1.63. Troponin was 0.10. Chest x-ray showed patchy right lung field opacification. Patient was then started on sepsis bundle and referred for admission. When seen in the ER, he was on the ventilator. His blood pressure was in the 80s, getting a central line, and is being started on pressors. 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 Surgical History: Tracheostomy and PEG tube placement. Allergies: TO TOMATOES. NO KNOWN DRUG ALLERGIES. Medications: As per medication reconciliation list. Social History: Unknown if ever smoked. Patient is resident of a nursing facility. Family History: Unable to be obtained. Review of Systems: Unable to be obtained. Physical Examination: General: The patient is on trach collar, largely not responsive on ventilator. HEENT: Normocephalic, atraumatic. PERRLA. Dry mucous membranes. Oropharynx is clear. Poor dentition. Neck: Supple. No JVD. Trachea midline. Trach collar in place. CV: S1, S2. Regular rate and rhythm. Peripheral pulses present. Respiratory: Diminished breath sounds. No wheezing or stridor. Patient is not tachypneic. No use of accessory muscles. Gastrointestinal: Abdomen is soft, nondistended. Positive bowel sounds. PEG tube in place. Extremities: No clubbing or cyanosis. No edema. Skin: No rashes. Normal skin turgor. Psych: Deferred. Neuro: The patient is nonverbal. History of Genevieve's disease. Laboratory Data: Sodium 141, potassium 5, chloride 101, CO2 of 36, BUN 31, creatinine 1.63, glucose 135, lactate 3.2, calcium 9.1. Troponin 0.10. CK level is 109. Amylase 420, lipase 52. Procalcitonin 5.88. INR 1.04. WBC 18.2 , H and H 11.7 and 35.9, platelets 423, neutrophils 92%. UA; negative nitrite, negative leukocyte esterase, 5-10 wbc's, bacteria 20-50. Previous sputum culture growing out Providencia and MRSA. Chest x-ray personally reviewed shows no diffuse pulmonary edema or pneumonia change. Patchy right lung field opacification shows continued improvement on serial imaging. Assessment: A 49-year-old male with, 1. Acute on chronic respiratory failure secondary to aspiration pneumonia, now with tracheostomy. Patient now requiring ventilator. Dr. Pathak with Pulmonology has been consulted. 2. Aspiration pneumonia, worsening secondary to Methicillin-resistant Staphylococcus aureus and Providencia. We will start on vancomycin and cefepime according to culture results. 3. Sepsis. The patient has elevated lactate, [place] [address]. Tachycardic and febrile. We will start on sepsis bundle. Obtain repeat cultures. 4. 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 5. Severe protein-calorie malnutrition. 6. Anemia of chronic disease. We will monitor H and H. 7. Gastroesophageal reflux disease. We will continue PPI. 8. Status post PEG tube placement. 9. Acute kidney injury likely secondary to prerenal azotemia and sepsis. We will continue IV fluids. Nephrology has been consulted. 10. Elevated troponin level likely due to acute issues such as sepsis and pneumonia and respiratory failure. Patient does have elevated amylase level. We will consider abdominal ultrasound down the line. Overall poor prognosis. Plan: 1. Admit patient to ICU, place as inpatient. We will repeat lactate level in 2 hours. /MODL Voice ID: [id number] MTDD
[2019-11-18] MEDS ORDERED: NA CHLORIDE 0.9% 1,000 ML ONE (05:22)
[2019-11-18 05:52] LABS: Absolute Lymphocytes (CBC) 0.6 K/uL (0.7-4.9); Basophils % 0.1 % (0-1.3); Hematocrit 25.7 % (39.6-49.0); Lymphocytes % 3.9 % (15.3-44.8); MPV 8.2 fL (7.6-11.3); RBC Red Blood Cell Count 3.08 M/uL (4.33-5.43)
[2019-11-18 06:09] LABS: Albumin 2.5 g/dL (3.4-5.0); Bilirubin Total 0.3 mg/dL (0.2-1.0); Phosphorus 2.1 mg/dL (2.5-4.9); Potassium 4.3 mmol/L (3.5-5.1); Protein, Total 6.6 g/dL (6.4-8.2)
[2019-11-18] MEDS: CEFEPIME/SWI 2gm 2 GM/20 ML SYR IVP SCH (09:00)
[2019-11-18] MEDS: METHYLPREDNISOLONE 40 MG INJ IV SCH (09:00)
[2019-11-18] MEDS: NA CHLORIDE 0.9% 1,000 ML IV SCH ×4 (10:00→15:15)
--- NOTE | 2019-11-18 10:16 | P.CNS ---
Date of Consult: 11/18/19 Reason for Consult: Respiratory failure septic shock Chief Complaint: Septic shock History of Present Illness: Patient is 49 years of age with a history of Genevieve's disease was recently discharged sputum cultures were positive for Mr CHAVIS and Naina in worse in the [facility] tachycardic short of breath hypotensive was admitted from the emergency room [facility] off vasopressors chest x-ray minimal changes hemodynamically now stable skull chewer spending pro calcitonin level was very elevated Allergies tomato Allergy (Mild, Verified 11/11/19 16:16) Rash Home Medications: Citalopram Hydrobromide [Citalopram HBr] 20 mg FT DAILY 11/11/19 Ipratropium/Albuterol Sulfate [Iprat-Albut 0.5-3(2.5) mg/3 ml] 1 amp IH Q6H Lactose-Free Food/Fiber [Jevity 1.5 Dax Liquid] 80 ml FT CONT 11/11/19 Omeprazole Magnesium [Prilosec] 40 mg FT DAILY 11/11/19 calcium polycarbophiL [Fibercon*] 1 tab FT DAILY 11/11/19 diazePAM [Diazepam] 1 mg FT BID 11/11/19 risperiDONE [Risperdal 1 mg tab*] 1 mg PO BEDTIME 11/11/19 sulfaSALAzine [Sulfasalazine] 2 tab FT QID 11/11/19 - Past Medical/Surgical History Diabetic: No -: Genevieve's disease -: Schizophrenia -: GERD -: History of aspiration pneumonia now with trach -: PEG tube -: aphasia -: PEG tube placement -: Trach Psychosocial/ Personal History: [facility] currently lives at the [facility]. Prior to this he was a prisoner. Patient still has ankle bracelet. - Social History Smoking Status: Unknown if ever smoked Alcohol use: No CD- Drugs: No Caffeine use: No Place of Residence: [facility] Review of Systems is unable to be obtained Physical Examination Temp Pulse Resp BP Pulse Ox 99.4 F 89 13 113/64 100 11/18/19 06:00 11/18/19 06:00 11/18/19 06:00 11/18/19 06:00 11/18/19 06:00 General: Unresponsive Respiratory: Clear to auscultation bilaterally Cardiovascular: No edema, Regular rate/rhythm Laboratory Data (last 24 hrs) 11/17/19 11:31: PT 12.2, INR 1.04, APTT 23.7 L 11/17/19 11:31: Sodium 141, Potassium 5.0, BUN 31 H D, Creatinine 1.63 H D, Glucose 135 H, Total Bilirubin 0.3, AST 25, ALT 63, Alkaline Phosphatase 92, Amylase 420 H* D, Lipase 52 L 11/17/19 11:16: WBC 18.2 H D, Hgb 11.7 L, Hct 35.9 L D, Plt Count 423 H D
--- NOTE | 2019-11-18 10:18 | P.PN ---
Subjective Date of Service: 11/18/19 Subjective A 49 Y/o man with tarceosomy and PEG feeding admitted for hypoxia recently was treated for ZHOU pneumonia today no change in medical status Cr down to 1.3, will reduce IVF rate cont to spike fever Social History: Lives in retirement. Past Surgical History: Includes: 1. Tracheostomy. 2. PEG tube placement. Family History: None obtainable. Review of Systems: None obtainable. Physical Examination: general: Not slert or oriented Neck; Supple, tracheostomy hear: RRR, normal S1,2 no murmur or rub Chest: CTAB, B/l rales Abdomen: Soft , Nt , PEG tube Extremities No edema or ulcer Assessment And Plan: KENAN likely due to prerenal azotemia improving Cont IVF , will reduce rate US : no hydro MRSA pneumonia Cont ABx Anemia of chronic disease will send for W/U Acute on chronic resp failure vent support cont Abx Physical Examination - Vital Signs Temperature: 99.4 F Blood Pressure: 113/64 Pulse: 89 Respirations: 13 Pulse Ox (%): 100 - Studies Laboratory Data (last 24 hrs) 11/17/19 11:31: PT 12.2, INR 1.04, APTT 23.7 L 11/17/19 11:31: Sodium 141, Potassium 5.0, BUN 31 H D, Creatinine 1.63 H D, Glucose 135 H, Total Bilirubin 0.3, AST 25, ALT 63, Alkaline Phosphatase 92, Amylase 420 H* D, Lipase 52 L 11/17/19 11:16: WBC 18.2 H D, Hgb 11.7 L, Hct 35.9 L D, Plt Count 423 H D Microbiology Data (last 24 hrs): 11/17/19 11:31 Blood - Blood Anaerobic Blood Culture - Final 11/17/19 11:44 Blood - Blood Anaerobic Blood Culture - Final
[2019-11-18] MEDS: ENOXAPARIN 40 MG/0.4 ML SQ SCH (10:39)
[2019-11-18] MEDS ORDERED: JEVITY 1.5 CAL LIQUID 1,000 ML BOT FT SCH (11:00)
--- NOTE | 2019-11-18 13:47 | EKG ---
Test Date: 2019-11-17 Test Time: 12:08:30 Health Care Law Specialist: MARIAH MEASUREMENT RESULTS: Intervals: Rate: 103 CT: 152 QRSD: 92 QT: 330 QTc: 432 [place]: P: 73 CT: 152 QRS: 82 T: 62 INTERPRETIVE STATEMENTS: Sinus tachycardia Incomplete right bundle branch block Nonspecific ST abnormality Abnormal ECG Compared to ECG 11/11/2019 13:36:19 Incomplete right bundle-branch block now present ST (T wave) deviation now present T-wave abnormality no longer present Electronically Signed On 11-18-19 13:46:36 CARROTING MACHINE OPERATOR by Davis Mares
--- NOTE | 2019-11-18 14:39 | PN ---
Date of Progress Note: 11/18/2019 Subjective: Patient is seen and examined. Chart reviewed and case discussed with RN. Patient is mu ch more responsive today. Following commands. Off Levophed, still on mechanical ventilation. Left message for the mother. Medications List: Reviewed. Physical Examination: Vital Signs: Temperature 100.4, respirations 16, O2 of 200% on mechanical ventilation, 40% FiO2. Bl ood pressure 116/72, heart rate 97. General: Asleep, but arousable. Patient is nonverbal and at baseline. Does follow commands. CV: S1, S2. Peripheral pulses present. Respiratory: Diminished breath sounds. Gastrointestinal: Abdomen is soft, nondistended. Positive bowel sounds. Mild rigidity. PEG tube i s in place. Extremities: No clubbing, cyanosis, or edema. Neuro: Patient is nonverbal at baseline, does open eyes to verbal stimulus. Follows commands. Move s all 4 extremities. Laboratory Data: Sodium 142, potassium 4.3, chloride 109, CO2 of 31, BUN 37, creatinine 1.3, glucose 101. Repeat lactate yesterday was 2.3, calcium 8.3, phosphorus 2.1. Albumin is 2.5. WBC 15.3, H a nd H 8.9 and 25.7, platelets 318, neutrophils 88%. Micro: Blood cultures and sputum cultures are pe nding. Serum cultures from last admission on 11/11/2019, growing out Providencia and MRSA. Assessment: 49-year-old male with: 1.Acute on chronic respiratory failure secondary to aspiration pneumonia. Patient has tracheostomy, now on ventilator. Continue weaning off ventilator. Appreciate Pulmonology input. 2.Aspiration pneumonia secondary to methicillin-resistant Staphylococcus aureus and Providencia. Co ntinue with vancomycin and cefepime. Repeat cultures have been obtained. 3.Sepsis, improving. Patient is still febrile. White count is improving. Lactate minimally elevat ed at 2.3. We will continue with IV fluids and IV antibiotics. Follow up on culture results. 4.[place]'s disease, nonverbal. 5.Severe protein-calorie malnutrition. 6.Anemia of chronic disease. We will continue to monitor H and H. 7.Gastroesophageal reflux disease without esophagitis. Continue PPI. 8.Status post PEG tube placement. We will continue feeds. 9.Acute kidney injury secondary to prerenal azotemia and sepsis, improving. Appreciate Nephrology i nput. We will continue to monitor creatinine level, improved today. 10.Contraction alkalosis. 11.Elevated troponin level likely secondary to sepsis, acute kidney injury. Doubt ACS. We will obt ain Cardiology consultation. Plan: Continue monitoring in the ICU setting. We will try to reach out to family again regarding co de status, currently full code. /DANIEL Voice ID: [id number] Report ID: [id number]
[2019-11-18] MEDS: JEVITY 1.2 CAL LIQUID 1,000 ML BOT FT SCH (15:00)
[2019-11-18] MEDS: Pantoprazole (granules) 40 MG/BLIST PACKET FT SCH (15:02)
--- NOTE | 2019-11-18 17:59 | CON ---
Reason For Consult: Abnormal troponin. Reason For Hospitalization: Pneumonia. History Of Present Illness: Mr. Cervantes is 49. He has severe underlying medical problems. Normall y he lives in a fpc and has been in the [facility] just for a brief period of time, p robably less than 2 months. He has been in our hospital twice in that time, has a tracheostomy, a PE G tube, severe neurological deficits, currently several causes for that including schizophrenia and H unting[place] disease. At this point, we know that he is growing methicillin-resistant staph from the sp utum. He seems to have pulmonary infiltrates on x-ray, although the right mid lung field patchy infi ltrate is actually better than it was a week or so ago when he was also in our hospital. The patient is not able to give a history. Physical Examination: General: He is nonverbal, does not respond to words. Lungs: Reveal diffuse breath sound abnormalities and large airway rhonchi type sounds. No high-pitc hed wheezes. No crackles. Heart: Seems to be within normal limits. Imaging: His electrocardiogram shows nothing that would suggest an acute MA. Laboratory Data: Reveals a troponin of 0.10. Impression: Mr. Cervantes may have underlying coronary artery disease, but certainly nothing is obvio us and this level of troponin elevation could be due to his underlying infectious process. I would n ot recommend testing troponins anymore. Mr. Cervantes would not be a patient who could undergo heart catheterization or any revascularization surgery. His neurological status is too far advanced for us to engage in that. The only thing that would change that considerations if the patient became alert enough and asked us to do it. This is, of course, very unlikely to happen, so I would not recommend pursuing a cardiac work up at this time. JUAN/DANIEL Voice ID: [id number] Report ID: [id number]
[2019-11-18] MEDS: RISPERIDONE 1 MG TABLET FT SCH (20:34)
[2019-11-18] MEDS: DIAZEPAM 2 MG TABLET FT SCH (20:34)
[2019-11-18] MEDS: VANCOMYCIN/NS 1 gm 1 GM/250 ML BAG IVPB SCH (20:34)
[2019-11-19 05:13] LABS: Basophils % 0.3 % (0-1.3); Hematocrit 30.2 % (39.6-49.0); Lymphocytes % 9.1 % (15.3-44.8); MPV 8.2 fL (7.6-11.3); RBC Red Blood Cell Count 3.55 M/uL (4.33-5.43)
[2019-11-19 05:31] VITALS: BMI 16.9
[2019-11-19 05:40] LABS: Albumin 2.4 g/dL (3.4-5.0); BUN Blood Urea Nitrogen 21 mg/dL (7-18); Bicarbonate 34 mmol/L (21-32); Glucose Level 96 mg/dL (74-106); Phosphorus 2.6 mg/dL (2.5-4.9); Sodium Level 143 mmol/L (136-145)
[2019-11-19 07:50] LABS: Ferritin 128.9 ng/mL (26-388); Folic Acid, (Folate) 8.9 ng/mL (3.1-17.5)
[2019-11-19] MEDS: DIAZEPAM 2 MG TABLET FT SCH ×2 (09:00→20:43)
[2019-11-19] MEDS: CA POLYCARBOPHIL (FIBERCON) 625 MG TAB FT SCH (09:00)
[2019-11-19] MEDS: Pantoprazole (granules) 40 MG/BLIST PACKET FT SCH (09:51)
[2019-11-19] MEDS: CEFTRIAXONE/SWI 1gm 1 GM/10 ML SYR IV SCH (09:51)
[2019-11-19] MEDS: CITALOPRAM 10 MG TABLET FT SCH (09:51)
[2019-11-19] MEDS: ENOXAPARIN 40 MG/0.4 ML SQ SCH (09:51)
[2019-11-19] MEDS: JEVITY 1.2 CAL LIQUID 1,000 ML BOT FT SCH (09:55)
--- NOTE | 2019-11-19 12:21 | PN ---
Mr. Cervantes seems to have improved slightly. He remains obtunded or semicomatose, unable to respond verbally or express any of his desires. No apparent distress. Cardiology will sign off. There are no indications to do any further cardiac testing. JUAN/DANIEL Voice ID: [id number] Report ID: [id number]
--- NOTE | 2019-11-19 12:22 | RAD REPORT ---
EXAM DESCRIPTION: RAD - Chest Single View - 11/19/2019 12:14 pm CLINICAL HISTORY: Device placement PICC line placement . IMPRESSION: PICC line with its tip in the mid superior vena cava
--- NOTE | 2019-11-19 14:37 | PN ---
Date of Progress Note: 11/19/2019 Subjective: Patient seen and examined. Chart reviewed and case discussed with RN, Dr. Mares, and Zuleika Pathak. Patient seems to be a little bit less responsive than yesterday, however, does awaken. Objective: General: Ill-appearing male, frail, cachectic. BMI 16.9. CV: S1, S2. Regular rate and rhythm. Peripheral pulses present. Respiratory: Diminished breath sounds. No wheezing or stridor. Gastrointestinal: Abdomen is somewhat distended. No tenderness to palpation. PEG tube is in place. Positive bowel sounds. Extremities: No clubbing, cyanosis, or edema. Neurologic: Moves all 4 extremities. Patient is nonverbal at baseline. Laboratory Data: Sodium 143, potassium 4, chloride 110, CO2 34, BUN 21, creatinine 0.84, glucose 96, calcium 8.5, phosphorus 2.6. Iron 28, TIBC 199, transferrin 142, ferritin 128, albumin 2.4, vitamin B12 1191, folate 8.9. WBC 10.6, H and H of 10.2 and 30.2, platelets 310, neutrophils 79%. Sputum c ultures and blood cultures still pending at this time. Urine culture growing mixed valeri. Assessment: 49-year-old male with: 1.Acute on chronic respiratory failure secondary to aspiration pneumonia with failed outpatient abelardo tment, now off ventilator. We will continue with supplemental oxygen. Appreciate Dr. Pathak's inp ut. 2.Aspiration pneumonia, failed outpatient treatment secondary to methicillin-resistant Staphylococcu s aureus and Providencia. Patient now on vancomycin and cefepime, switch to Rocephin according to cu ltures. Repeat cultures are still pending at this time. 3.Sepsis, improving. White blood cell counts normalized. We will repeat procalcitonin. Otherwise, blood pressure is stable off pressors. Continue with IV fluids and IV antibiotics. Final culture r esults are still pending. 4.[place] disease, nonverbal. Continue home medications. 5.Severe protein-calorie malnutrition. BMI is 16.9. 6.Anemia of chronic disease. Continue to monitor H and H. 7.Gastroesophageal reflux disease without esophagitis. Continue PPI. 8.Status post PEG tube placement. Continue tube feeds. 9.Acute kidney injury. Creatinine is now normalized. Nephrology on board. Continue to monitor. A void NSAIDs. 10.Elevated troponin level secondary to sepsis, acute kidney injury. No ACS. Appreciate Dr. Mares ' input. No intervention at this time. Plan: We will continue monitoring in ICU setting. We will obtain PICC line, as the patient will nee d IV antibiotics for minimum of 2 weeks, as he has failed outpatient treatment. Mother still has not returned our calls. Therefore, will do doctor signature for PICC line placement consent. Iron stud ies show iron deficiency type picture for his anemia. Hemoglobin stable at 10.2 at this time. We wi ll continue to monitor. Overall, guarded prognosis. We will try to reach out to family again, hughar laura future care planning and code status. Would recommend DNR for the patient due to his quality of life. /DANIEL Voice ID: [id number] Report ID: [id number]
[2019-11-19] MEDS: RISPERIDONE 1 MG TABLET FT SCH (20:44)
[2019-11-19] MEDS: VANCOMYCIN/NS 1 gm 1 GM/250 ML BAG IVPB SCH (21:50)
[2019-11-20] MEDS: NA CHLORIDE 0.9% 1,000 ML IV SCH ×2 (03:00→11:27)
[2019-11-20 05:25] LABS: Basophils % 0.5 % (0-1.3); Hematocrit 29.6 % (39.6-49.0); Lymphocytes % 12.6 % (15.3-44.8); MPV 8.4 fL (7.6-11.3); RBC Red Blood Cell Count 3.51 M/uL (4.33-5.43)
[2019-11-20 05:33] LABS: Albumin 2.3 g/dL (3.4-5.0); BUN Blood Urea Nitrogen 15 mg/dL (7-18); Bicarbonate 34 mmol/L (21-32); Glucose Level 113 mg/dL (74-106); Phosphorus 2.9 mg/dL (2.5-4.9); Potassium 3.3 mmol/L (3.5-5.1); Sodium Level 145 mmol/L (136-145)
[2019-11-20] MEDS: ENOXAPARIN 40 MG/0.4 ML SQ SCH (10:57)
[2019-11-20] MEDS: CEFTRIAXONE/SWI 1gm 1 GM/10 ML SYR IV SCH (10:58)
[2019-11-20] MEDS: FERROUS SULFATE 325 MG TAB PO SCH ×2 (10:58→21:55)
[2019-11-20] MEDS: CA POLYCARBOPHIL (FIBERCON) 625 MG TAB FT SCH (10:58)
[2019-11-20] MEDS: CITALOPRAM 10 MG TABLET FT SCH (10:59)
[2019-11-20] MEDS: DIAZEPAM 2 MG TABLET FT SCH ×2 (10:59→21:55)
[2019-11-20] MEDS: Pantoprazole (granules) 40 MG/BLIST PACKET FT SCH (10:59)
[2019-11-20] MEDS: VANCOMYCIN/NS 1 gm 1 GM/250 ML BAG IVPB SCH (14:23)
--- NOTE | 2019-11-20 17:05 | PN ---
Date of Progress Note: 11/19/2019 Subjective: The patient was admitted with acute kidney injury secondary to sepsis. Questionable int erstitial nephritis, septic shock. Upon arrival, he was hypotensive. Patient started on aggressive hydration. Kidney function started improving. Objective: Vital Signs: Today blood pressure of 122/81, pulse of 84, afebrile. The patient had goo d urine output of 500. Chest: Clear to auscultation. Heart: S1 and S2 are regular. Abdomen: Soft, nontender. Extremities: Trace edema. Laboratory Data: Sodium 143, potassium 4, bicarb 34, BUN 21, creatinine 0.8, calcium 8.5, phosphorus 2.6. Albumin 2.4, H and H of 10.2/30.2. Current Medications: The patient on include IV fluid, ceftriaxone, vancomycin, Lovenox, diazepam, Zo suresh, normal saline. Assessment And Plan: 1.Acute kidney injury secondary to prerenal superimposed with gastrointestinal loss recovered. Cont inue hydration. 2.Hypertension used to be hypotensive, currently controlled. Continue IV hydration. Keep holding I V fluid. 3.Hyperkalemia secondary to renal failure, resolved. 4.Sepsis growing in the sputum, possible pneumonia source. We will follow up with the primary. Rocky ramirez current antibiotic. MA/MODL Voice ID: [id number] Report ID: [id number]
--- NOTE | 2019-11-20 17:56 | PN ---
Date of Progress Note: 11/20/2019 Subjective: The patient was admitted with septic shock, hypotensive and dehydration. Patient was pl aced on fluid resuscitation and Levophed weaned from it. Patient had before pneumonia. Physical Examination: Vital Signs: Blood pressure 118/84, pulse of 80. Patient had good urine output of 2200, positive of 600. Chest: Faint rales on the left base. Heart: S1, S2. Regular. Abdomen: Soft, nontender. Extremities: No edema. Laboratory Data: WBC 7.7, H and H 10/29.6, platelets of 315. Sodium 145, potassium 3.3, bicarb 34, BUN 15, creatinine 0.6, calcium 8.2, phos 2.9, TSAT of 14, ferritin of 128. PTH of 30. Current Medications: Includes ceftriaxone, vancomycin, breathing treatment, ferrous sulfate, pantopr azole. Assessment And Plan: 1.Acute kidney injury secondary to prerenal, recovered, resolved. I am going to go ahead and discon tinue intravenous fluid. 2.Hypernatremia. Discontinue normal saline. I am going to go ahead and increase his free water to 100 and we will follow up. 3.Hypertension. Controlled optimal off blood pressure medication. 4.Providencia, serratia. Continue current antibiotic. We will follow up with the Primary. BEAU Voice ID: [id number] Report ID: [id number]
--- NOTE | 2019-11-20 21:05 | DS ---
Date of service; 11/20/2019 Consultants: Dr. Romero and Dr. Harvey with Nephrology, Dr. Pathak with Pulmonology, Dr. Mares with Cardiology. Admitting Diagnoses: 1. Septic shock. 2. Acute on chronic respiratory failure secondary to aspiration pneumonia, on mechanical ventilation. 3. Aspiration pneumonia secondary to methicillin-resistant Staphylococcus aureus and providencia. 4. [place] disease, nonverbal. 5. Severe protein-calorie malnutrition. 6. Anemia of chronic disease. 7. Gastroesophageal reflux disease. 8. Status post percutaneous endoscopic gastrostomy tube placement, dysphagia. 9. Acute kidney injury. 10. Elevated troponin level. Discharge Diagnoses: 1. Acute on chronic respiratory failure secondary to aspiration pneumonia. 2. Septic shock, now off pressors. 3. Aspiration pneumonia secondary to methicillin-resistant Staphylococcus aureus and providencia. 4. [place] disease, nonverbal. 5. Severe protein-calorie malnutrition. 6. Anemia of chronic disease. 7. Gastroesophageal reflux disease without esophagitis. 8. Dysphagia, status post percutaneous endoscopic gastrostomy tube placement. 9. Acute kidney injury, resolved. 10. Elevated troponin level secondary to sepsis. Hospital Course: Patient is a 49-year-old male who was recently discharged from the hospital on 11/13/2019 back to [facility] who has [place] disease, nonverbal, and is PEG'ed and trached, comes in with worsening condition after his pneumonia. Patient's antibiotics were recently changed while at the nursing facility to cover for MRSA and providencia, which were growing out of sputum cultures. Patient was sent into the hospital for worsening and he was found to have sepsis with shock requiring pressors. He had elevated lactate. Procalcitonin was elevated. White blood cell count was 18,000. Kidney function was elevated at 1.63 and had a troponin leak. Patient was started on IV fluids, pressors and broad-spectrum IV antibiotics. His cultures were sensitive to vancomycin and cefepime as well as Rocephin. Pulmonology was consulted. Patient initially was requiring mechanical ventilation through the tracheostomy. Overall, he did well. The patient's sepsis improved. He was able to be weaned off pressors. His electrolytes were corrected. His white blood cell count normalized. His repeat cultures again grew out providencia, which was sensitive to Rocephin. His blood cultures remained negative. He also has MRSA from previous culture. He was seen by Dr. Harvey with Nephrology due to his acute kidney injury, which improved. This was likely secondary to sepsis, prerenal azotemia. Patient also seen by Dr. Mares, cardiology regarding his troponin elevation. There was no cardiac intervention recommended due to his overall chronic condition. This was likely thought to be due to sepsis. No acute coronary syndrome. Patient was doing well. PICC line was placed for long-term IV antibiotics. He was then to be set up with IV antibiotics at the nursing facility and will be discharged back in a fair condition. Activity: As tolerated. Medications: As per medication reconciliation list. Followup: Follow up with PCP in 2-3 days. Follow up with printer's devil, Dr. Harvey, in 2 weeks. Follow up with case making machine operator, Dr. Pathak, in 2 weeks. Discharge Instructions: Return to ER for worsening condition. Patient will finish off course of vancomycin and Rocephin for a total of 2 weeks. He will need weekly CBC, CMP, ESR, and CRP. Patient to have repeat cultures after completion of antibiotics. PICC line care has been ordered. Patient is to have PICC line discontinued once antibiotics are completed. Vancomycin dose will need to be adjusted renally. Sent trough after third dose. Physical Examination: General: Awake, alert, does follow some commands, nonverbal. CV: S1, S2. Respiratory: Moving air well bilaterally. Abdomen: Soft, nontender, nondistended. PEG tube in place. Extremities: No clubbing, cyanosis, edema. Neuro: Moves all 4 extremities. SA/MODL Voice ID: [id number] Report ID: [id number] [facility]
[2019-11-20] MEDS: RISPERIDONE 1 MG TABLET FT SCH (21:55)
[2019-11-20] MEDS: JEVITY 1.2 CAL LIQUID 1,000 ML BOT FT SCH (23:32)
[2019-11-21 05:08] LABS: Absolute Lymphocytes (CBC) 0.9 K/uL (0.7-4.9); Basophils % 0.6 % (0-1.3); Lymphocytes % 14.6 % (15.3-44.8); RBC Red Blood Cell Count 3.34 M/uL (4.33-5.43)
[2019-11-21 05:25] LABS: Albumin 2.4 g/dL (3.4-5.0); BUN Blood Urea Nitrogen 13 mg/dL (7-18); Bicarbonate 35 mmol/L (21-32); Glucose Level 123 mg/dL (74-106); Phosphorus 3.3 mg/dL (2.5-4.9); Potassium 3.7 mmol/L (3.5-5.1); Sodium Level 143 mmol/L (136-145)
[2019-11-21] MEDS: DIAZEPAM 2 MG TABLET FT SCH (07:30)
[2019-11-21] MEDS: ENOXAPARIN 40 MG/0.4 ML SQ SCH (07:30)
[2019-11-21] MEDS: CEFTRIAXONE/SWI 1gm 1 GM/10 ML SYR IV SCH (07:30)
[2019-11-21] MEDS: Pantoprazole (granules) 40 MG/BLIST PACKET FT SCH (07:30)
[2019-11-21] MEDS: VANCOMYCIN/NS 1 gm 1 GM/250 ML BAG IVPB SCH ×3 (07:30→09:25)
[2019-11-21] MEDS: FERROUS SULFATE 325 MG TAB PO SCH (07:31)
[2019-11-21] MEDS: CITALOPRAM 10 MG TABLET FT SCH (07:31)
[2019-11-21] MEDS: CA POLYCARBOPHIL (FIBERCON) 625 MG TAB FT SCH (07:31)
--- NOTE | 2019-11-21 08:39 | PN ---
Date of Progress Note: 11/19/2019 History Of Present Illness: This is a 49-year-old gentleman. All the information has been obtained from the record as the patient is non verbal. This is an unfortunate 49-year-old gentleman with significant past medical history of disease, psychosis. Patient had a trach secondary to respiratory failure, bilateral pneumonia. Patient in skilled nursing, recently admitted to the hospital, discharged from our hospital on november 12 with MRSA pneumonia, placed on Ceftin . Apparently, patient was found in the skilled nursing poorly responsive with hypoxemia. The patient was transferred to the ER, found to be in septic shock with blood pressure down to the 70. Hypoxemic, the patient was connected to the vent. Start sepsis protocol. Physical Examination: Vital Signs: When I saw the patient, blood pressure 76/50, pulse of 88. Chest: Crackles bilateral. Heart: S1, S2. Systolic murmur. Abdomen: Soft, nontender. Extremities: No edema. The patient wasted. Neuro: Poorly responsive. Laboratory Data: Laboratory Data: H and H 10.2/30.2. Sodium 143, potassium 4, Assessment And Plan: 1. Acute kidney injury secondary to prerenal, poor perfusion, superimposed with toxic acute tubular necrosis secondary to sepsis. I am going to go ahead and start fluid resuscitation. We will bolus the patient with another liter and we will agree with Levophed. We will send for protein/creatinine, and send urine eosinophil to rule out any acute interstitial nephritis given the recent exposure to antibiotic. 2. Septic shock. We will add cephalosporin given the finding of old culture. 3. We will resuscitate the patient with fluid and we will continue to monitor the patient. I agree with Levophed. Currently, the source is possible pneumonia/urinary tract infection. 4. Contraction alkalosis, secondary to dehydration. We will continue intravenous fluid. 5. Hyperkalemia, marginal, secondary to renal failure. We will start aggressive hydration. SON/DANIEL Voice ID: [id number] Report ID: [id number] ARIEL
[2019-11-21 09:18] VITALS: O2SAT 95
[2019-11-21] MEDS: JEVITY 1.2 CAL LIQUID 1,000 ML BOT FT SCH (11:54)
[2019-11-21 13:42] VITALS: BP 143/83; TEMP 97.7
--- NOTE | 2019-11-21 15:12 | PN ---
Date of Progress Note: 11/21/2019 Subjective: Patient was discharged yesterday; however, was unable to go as IV antibiotics were not s et up at the nursing facility where he resides. No acute events overnight. Medications: List reviewed. Physical Examination: Vital Signs: Temperature 98.4, heart rate 78, blood pressure 126/92, respirations 20, O2 sat 98% on 5 L via trach collar. General: Awake, alert, nonverbal, frail cachectic male. BMI 16. CV: S1, S2. Regular rate and rhythm. Peripheral pulses present. Respiratory: Moving air well. No wheezing or stridor. Gastrointestinal: Abdomen is soft, nontender, nondistended. Positive bowel sounds. Extremities: No clubbing, cyanosis, or edema. Neuro: Moves all 4 extremities, nonverbal. Opens eyes spontaneously. Skin: PEG tube in place. Laboratory Data: Sodium 143, potassium 3.7, chloride 106, CO2 of 35, BUN 13, creatinine 0.64, glucos e 123, calcium 8.4, phosphorus 3.3. WBC 6, H and H 9.5 and 28, platelets 307. Sputum culture growin g out providencia. Previous sputum cultures growing out providencia and MRSA. Blood cultures are ne gative to date. Assessment: A 49-year-old male with. 1.Acute on chronic respiratory failure secondary to aspiration pneumonia. Currently on 5 L via trac h collar. Stable. 2.Septic shock, resolved. Off pressors. White count normalized. Secondary to aspiration pneumonia . 3.Aspiration pneumonia secondary to methicillin-resistant Staphylococcus aureus and providencia. We will continue with IV antibiotics for a total of 2 weeks, has already received 4 days here and will need another 10 days. 4.[place] disease. Nonverbal. 5.Severe protein-calorie malnutrition. Continue supplements. 6.Anemia of chronic disease. Monitor H and H, transfuse as needed. 7.Gastroesophageal reflux disease without esophagitis. Stable. 8.Dysphagia, status post percutaneous endoscopic gastrostomy tube placement. Continue tube feeds. 9.Acute kidney injury. Resolved. 10.Elevated troponin level, likely secondary to sepsis. No acute coronary syndrome. No further int ervention. Plan: Discharge to [facility] once IV antibiotics are set up. SA/MODL Voice ID: [id number] Report ID: [id number]
== END 2019-11-21 14:30 | DRG 871 ==
LOC: ER 10:41 → ERHOLD 12:23 → 3RD-ICU 17:55 → 4TH 11-19 14:01
PROVIDERS: ADMIT Family Medicine; ATTEND Family Medicine
PROC: 5A1935Z Respiratory Ventilation, Less than 24 Consecutive Hours (ICD-10-PCS; principal; 2019-11-17)
PROC: 02HV33Z Insertion of Infusion Device into Superior Vena Cava, Percutaneous Approach (ICD-10-PCS; 2019-11-19)
DX: A41.9 Sepsis, unspecified organism (principal); R65.21 Severe sepsis with septic shock; J69.0 Pneumonitis due to inhalation of food and vomit; N17.0 Acute kidney failure with tubular necrosis; J96.20 Acute and chronic respiratory failure, unspecified whether with hypoxia or hypercapnia; E43 Unspecified severe protein-calorie malnutrition; J16.8 Pneumonia due to other specified infectious organisms; J15.212 Pneumonia due to Methicillin resistant Staphylococcus aureus; G10 Huntington's disease; Z68.1 Body mass index [BMI] 19.9 or less, adult; E87.3 Alkalosis; D64.9 Anemia, unspecified; K21.9 Gastro-esophageal reflux disease without esophagitis; R13.10 Dysphagia, unspecified; Z93.0 Tracheostomy status; Z93.1 Gastrostomy status
CPT/HCPCS: 36415; 36569; 51702; 71045; 76770; 80048; 80053; 80069; 80076; 80202; 81003; 81015; 82150; 82550; 82553; 82570; 82607; 82728; 82746; 82805; 82947; 83540; 83605; 83690; 83970; 84145; 84156; 84466; 84484; 85025; 85610; 85730; 87040; 87070; 87077; 87086; 87088; 87186; 87205; 93005; 94002; 94003; 94760; 96365; 96366; 96367; 96368; 96375; 99291; 99292; J0692; J0696; J1650; J2920; J3370; J7030; J7040; J7060

== ENCOUNTER 2020-01-07 04:28 | Inpatient (IN) | payer MEDICAID, SELFPAY ==
[2020-01-07] MEDS ORDERED: NA CHLORIDE 0.9% 500 ML ONE (04:57)
[2020-01-07 05:13] LABS: Absolute Lymphocytes (CBC) 0.7 K/uL (0.7-4.9); Basophils % 0.2 % (0-1.3); Hematocrit 35.5 % (39.6-49.0); Lymphocytes % 7.2 % (15.3-44.8); MPV 8.8 fL (7.6-11.3); RBC Red Blood Cell Count 4.29 M/uL (4.33-5.43)
[2020-01-07 05:24] LABS: BUN Blood Urea Nitrogen 19 mg/dL (7-18); Bicarbonate 40 mmol/L (21-32); Glucose Level 129 mg/dL (74-106); Potassium 3.7 mmol/L (3.5-5.1); Sodium Level 141 mmol/L (136-145)
[2020-01-07 05:28] LABS: Protime INR 1.17
[2020-01-07 05:37] LABS: ALT/SGPT 62 U/L (12-78); AST/SGOT 16 U/L (15-37); Alkaline Phosphatase 123 U/L (45-117); Amylase Level 46 U/L (25-115); Bilirubin Direct < 0.1 mg/dL (0-0.2); Bilirubin Total 0.2 mg/dL (0.2-1.0); Creatine Phosphokinase 48 U/L (39-308); Lipase 40 U/L (73-393); Protein, Total 8.6 g/dL (6.4-8.2); Troponin (Emerg Dept Use Only) < 0.02 ng/mL (0.0-0.045)
[2020-01-07 05:42] LABS: Blood Morphology Comment NOT SEEN (NOT SEEN); Platelet Estimate ADEQ
[2020-01-07] MEDS ORDERED: CEFTRIAXONE/SWI 1gm 1 GM/10 ML SYR ONE (06:13)
--- NOTE | 2020-01-07 06:14 | ER ---
Nurse's Notes 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 Coronavirus screen: pt is a [place] resident, unsure of COVID symptoms, none reported in EMS report upon pt arrival. Ebola Screen: Unable to complete the Ebola screening because:. Initial Sepsis Screen: Does the patient meet any 2 criteria? HR > 90 bpm. Yes Does the patient have a suspected source of infection? Yes: Dysuria/Frequency/Urgency/UTI Other: pt wears briefs in a [place] facility. Risk Assessment: Do you want to hurt yourself or someone else? Unable to obtain. Onset of symptoms was January 07, 2020. Care prior to arrival: Assisted ventilation, Oxygen administered. via AMBU bag. 04:30 Acuity: KEZIA 1 sg Historical: - Allergies: 04:47 tomato; sg - Home Meds: 06:23 citalopram 10 mg/5 mL oral soln 10 mL once daily [Active]; diazepam 2 mg Oral tab .5 sg tab 2 times per day [Active]; calcium polycarbophil 625 mg oral tab 1 tab daily [Active]; ipratropium-albuterol 0.5 mg-3 mg(2.5 mg base)/3 mL Inhl nebu 3 mL 4 times per day [Active]; lactose-reduced food with fiber oral 1.5 kyaw oral 80 mL continuous [Active]; Omeprazole Oral 10 Suspended Pkt once daily [Active]; risperidone 1 mg oral tab 1 tab once daily [Active]; sulfasalazine 500 mg Oral tab 2 tab [Active]; - PMHx: 04:47 aspiration pneumnonia; gastrostomy tube in situ; respiratory failure; tracheostomy in sg situ; 04:53 Septic Shock; Anemia; [place] Disease; NonVerbal; GERD; AKD; sg - Immunization history:: Adult Immunizations unknown. - Social history:: Smoking status: unknown. Screenin:01 Nutritional screening: G-tube noted . Fall Risk IV access (20 points). ea 05:04 Abuse screen: non responsive. Tuberculosis screening: No symptoms or risk factors rv identified. Assessment: 04:38 Reassessment: Patient appears in no apparent distress at this time. 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 04:40 General: Appears ill. Pain: Unable to use pain scale. Patient is disoriented. Neuro: rv Level of Consciousness is awake. Cardiovascular: Patient's skin is warm and dry. Rhythm is sinus tachycardia. Respiratory: Airway is compromised dislodged tracheostomy tube. Breath sounds are clear bilaterally. GI: PEG tube in place, Site clean. gastric tube. Derm: Skin with poor turgor. 05:00 Reassessment: [facility] contacted, spoke with pt nurse, transferred to pt hospice nurse nila Valencia. 05:10 Reassessment: Annie, home health nurse for pt contacted for information on code status, nila Valencia reports this patient to be a full code. 05:39 Reassessment: temp findings low recorded with shereen ovalles, pt has been placed to [facility] for warming measures at this time with Ledy ARORA. 05:41 Reassessment: Patient and/or family updated on plan of care and expected duration. Pain ea level reassessed. Pt resting with eyes closed, respirations even and unlabored. Pt reacts to painful stimulus. Unable to verbalized needs. 06:24 Reassessment: Patient and/or family updated on plan of care and expected duration. Pain ea level reassessed. Pt resting with eyes closed, respirations even and unlabored. Chest expansions even and symmetrical. 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 09:00 Reassessment: Patient appears in no apparent distress at this time. respirations even em and unlabored, skin warm and dry, pending room assignment. 10:00 Reassessment: Patient appears in no apparent distress at this time. respirations even em and unlabored, skin warm and dry, pending room assignment. Vital Signs: 04:30 BP 131 / 88; Pulse 126 MON; Resp 12 S; Temp 98.8; Pulse Ox 95% on 100% BVM; sg 04:50 Pulse 121; Resp 11 S; Pulse Ox 97% on 100% Simple Mask to Trach; sg 05:15 Weight 52.62 kg (R); sg 05:26 BP 124 / 89; Pulse 112; Resp 18; Temp 96.9; Pulse Ox 99% on 100% Simple Mask; rv 05:39 BP 128 / 96; Pulse 110; Resp 16; Temp 96.9; Pulse Ox 97% ; ea 06:25 BP 115 / 87; Pulse 107; Resp 19; Temp 96.6; Pulse Ox 100% ; ea 07:15 BP 107 / 75; Pulse 109; Resp 20; Temp 97.2(C); Pulse Ox 97% on Simple Mask; em 08:00 BP 108 / 82; Pulse 109; Resp 18; Pulse Ox 98% on Simple Mask; em 09:00 BP 129 / 94; Pulse 114; Resp 18; Pulse Ox 97% on Simple Mask; em 10:30 BP 133 / 92; Pulse 112; Resp 18; Pulse Ox 97% on Simple Mask; em Jared Coma Score: 06:41 Eye Response: to voice(3). Verbal Response: none(1). Motor Response: localizes pain(5). rv Total: 9. ED Course: 04:31 Patient arrived in ED. rv 04:39 Codey Still MD is Attending Physician. kdr 04:40 Jakob Salazar RN is Primary Nurse. rv 04:42 Arm band placed on. sg 04:47 Triage completed. sg 05:02 Inserted saline lock: 20 gauge in right in left forearm, using aseptic technique. ea 05:04 Inserted saline lock: 18 gauge in right forearm, using aseptic technique. Blood rv collected. 05:05 Patient has correct armband on for positive identification. Placed in gown. Bed in low rv position. Side rails up X2. monitoring tech on. Pulse ox on. NIBP on. 05:16 Ovalles cath inserted, using sterile technique, 16 Fr., by sd, balloon inflated, to oe gravity drainage, urine specimen collected. Patient tolerated. 05:25 CXR XRAY In Process Unspecified. EDMS 05:31 pt has been placed onto a waffle mattress for comfort. sg 05:31 Thermoregulation: warm blanket given to patient. sg 06:12 Radha Ordonez MD is Hospitalizing Provider. kdr 06:28 No provider procedures requiring assistance completed. Patient admitted, IV remains in ea place. 06:46 a COVID 19 specimen has been obtained per hospital policy and sent to the lab as sg ordered by ERP . Administered Medications: 05:00 Drug: NS 0.9% (30 ml/kg) 30 ml/kg Route: IV; Rate: bolus; Site: left forearm; rv 06:32 Follow up: IV Status: Completed infusion rv 06:12 Drug: Rocephin - (cefTRIAXone) 1 grams Route: IVPB; Infused Over: 30 mins; Site: right rv antecubital; 06:32 Follow up: IV Status: Completed infusion rv Outcome: 06:13 Decision to Hospitalize by Provider. kdr 10:35 Admitted to Tele accompanied by tech, via stretcher, room 414, with oxygen, with chart, em Report called to ULYSSES Avila 10:35 Condition: stable 10:35 Instructed on the need for admit. 11:26 Patient left the ED. em Signatures: Dispatcher [employer] EDScott Mata, Codey Bain RN, MD MD kdr Munoz, Edgar, RN RN em Justin Browning Elena RN Jakob Canales ea RN RN rv Corrections: (The following items were deleted from the chart) 05:43 05:28 Reassessment: rv ea 10:16 09:00 BP 129 / 94; Pulse 114bpm; Resp 18bpm; Pulse Ox 97% Venturi mask; em em 10:16 08:00 BP 108 / 82; Pulse 109bpm; Resp 18bpm; Pulse Ox 98% Venturi mask; em em
--- NOTE | 2020-01-07 06:14 | EDPHYS ---
Physician Documentation [facility] Name: Ulises Cervantes Age: 49 yrs Sex: Male : 1970 Arrival Date: 01/07/2020 Time: 04:31 Bed 3 Private MD: ED Physician Codey Still HPI: 01/06 05:23 This 49 yrs old Black Male presents to ER via EMS with complaints of Displaced kdr tracheostomy tube. 05:23 The patient was sent from [place] after it was noted that his tracheostomy tube. The kdr patient arrived in the ED with only the inner canula of the tracheostomy tube in place in the stoma. The patient appears to be in a persistent vegetative state. he is unable to cooperate with commands.. Onset: The symptoms/episode began/occurred at an unknown time. Severity of symptoms: At their worst the symptoms were mild moderate in the emergency department the symptoms. It is unknown whether or not the patient has had similar symptoms in the past. It is unknown whether or not the patient has recently seen a physician. Historical: - Allergies: 04:47 tomato; sg - Home Meds: 06:23 citalopram 10 mg/5 mL oral soln 10 mL once daily [Active]; diazepam 2 mg Oral tab .5 sg tab 2 times per day [Active]; calcium polycarbophil 625 mg oral tab 1 tab daily [Active]; ipratropium-albuterol 0.5 mg-3 mg(2.5 mg base)/3 mL Inhl nebu 3 mL 4 times per day [Active]; lactose-reduced food with fiber oral 1.5 kyaw oral 80 mL continuous [Active]; Omeprazole Oral 10 Suspended Pkt once daily [Active]; risperidone 1 mg oral tab 1 tab once daily [Active]; sulfasalazine 500 mg Oral tab 2 tab [Active]; - PMHx: 04:47 aspiration pneumnonia; gastrostomy tube in situ; respiratory failure; tracheostomy in sg situ; 04:53 Septic Shock; Anemia; Genevieve Disease; NonVerbal; GERD; AKD; sg - Immunization history:: Adult Immunizations unknown. - Social history:: Smoking status: unknown. ROS: 05:23 Unable to obtain ROS due to patient is in a persistent vegetative state. kdr 06:13 Constitutional: The patient is unable to give a history due to persistent vegetative kdr state Exam: 05:23 Constitutional: This is a well developed, well nourished patient who is awake, alert, kdr and in no acute distress. Head/Face: Normocephalic, atraumatic. Eyes: Pupils equal round and reactive to light, extra-ocular motions intact. Lids and lashes normal. Conjunctiva and sclera are non-icteric and not injected. Cornea within normal limits. Periorbital areas with no swelling, redness, or edema. Chest/axilla: Normal chest wall appearance and motion. Nontender with no deformity. No lesions are appreciated. Cardiovascular: Regular rate and rhythm with a normal S1 and S2. No gallops, murmurs, or rubs. Normal PMI, no JVD. No pulse deficits. Respiratory: Lungs have equal breath sounds bilaterally, clear to auscultation and percussion. No rales, rhonchi or wheezes noted. No increased work of breathing, no retractions or nasal flaring. Abdomen/GI: Soft, non-tender, with normal bowel sounds. No distension or tympany. No guarding or rebound. No evidence of tenderness throughout. 05:23 Neck: External neck: The patient has a tracheostomy site with an inner canula in the opening.. Vital Signs: 04:30 BP 131 / 88; Pulse 126 MON; Resp 12 S; Temp 98.8; Pulse Ox 95% on 100% BVM; sg 04:50 Pulse 121; Resp 11 S; Pulse Ox 97% on 100% Simple Mask to Trach; sg 05:15 Weight 52.62 kg (R); sg 05:26 BP 124 / 89; Pulse 112; Resp 18; Temp 96.9; Pulse Ox 99% on 100% Simple Mask; rv 05:39 BP 128 / 96; Pulse 110; Resp 16; Temp 96.9; Pulse Ox 97% ; ea 06:25 BP 115 / 87; Pulse 107; Resp 19; Temp 96.6; Pulse Ox 100% ; ea 07:15 BP 107 / 75; Pulse 109; Resp 20; Temp 97.2(C); Pulse Ox 97% on Simple Mask; em 08:00 BP 108 / 82; Pulse 109; Resp 18; Pulse Ox 98% on Simple Mask; em 09:00 BP 129 / 94; Pulse 114; Resp 18; Pulse Ox 97% on Simple Mask; em 10:30 BP 133 / 92; Pulse 112; Resp 18; Pulse Ox 97% on Simple Mask; em Jared Coma Score: 06:41 Eye Response: to voice(3). Verbal Response: none(1). Motor Response: localizes pain(5). rv Total: 9. Procedures: 05:23 Performed Tracheostomy tube replacement. Initially attempted a #6 without success, #4 kdr then attempted and with slow gentle pressure the new tracheostomy tube was passed with only minimal difficulty - they patient tolerated well and there was no apparent complicatoins. MDM: 05:23 Data reviewed: vital signs, nurses notes, lab test result(s), radiologic studies. kdr Counseling: I had a detailed discussion with the patient and/or guardian regarding: the historical points, exam findings, and any diagnostic results supporting the discharge/admit diagnosis, lab results, radiology results. 06:13 Patient medically screened. kdr 01/06 04:59 Order name: CBC with Diff; Complete Time: 06:06 ea 01/06 04:59 Order name: BMP; Complete Time: 06:06 ea 01/06 05:14 Order name: Amylase, Serum kdr 01/06 05:14 Order name: Blood Culture Adult (2) kdr 01/06 05:14 Order name: Ckmb kdr 01/06 05:14 Order name: CPK kdr 01/06 05:14 Order name: Lactate kdr 01/06 05:14 Order name: LFT's; Complete Time: 06:06 kdr 01/06 05:14 Order name: Lipase; Complete Time: 06:06 kdr 01/06 05:14 Order name: Procalcitonin kdr 01/06 05:14 Order name: Protime (+inr); Complete Time: 06:06 kdr 01/06 05:14 Order name: Ptt, Activated; Complete Time: 06:06 kdr 01/06 05:14 Order name: Troponin (emerg Dept Use Only); Complete Time: 06:06 kdr 01/06 05:14 Order name: Urine Microscopic Only kdr 01/06 05:15 Order name: Amylase Level; Complete Time: 06:06 EDMS 01/06 05:15 Order name: Blood Culture EDMS 01/06 05:15 Order name: CKMB Creatine Kinase MB; Complete Time: 06:06 EDMS 01/06 05:15 Order name: Creatine Phosphokinase; Complete Time: 06:06 EDMS 01/06 05:34 Order name: Urine Dipstick--Ancillary (enter results) dh4 01/06 05:42 Order name: Manual Differential; Complete Time: 06:06 EDMS 01/06 06:31 Order name: COVID-19 kdr 01/06 06:37 Order name: CBC with Automated Diff EDMS 01/06 06:37 Order name: CBC with Automated Diff EDMS 01/06 06:37 Order name: Comprehensive Metabolic Panel EDMS 01/06 06:37 Order name: Comprehensive Metabolic Panel EDMS 01/06 06:37 Order name: Lactate EDMS 01/06 06:37 Order name: Lactate EDMS 01/06 06:37 Order name: Lipid Profile EDMS 01/06 06:37 Order name: Lipid Profile EDMS 01/06 06:37 Order name: Magnesium EDMS 01/06 04:44 Order name: Misc. Order: #4 Tach tube to bedside; Complete Time: 04:54 kdr 01/06 05:05 Order name: CXR XRAY [facility] 01/06 05:06 Interpretation: NAD. kdr 01/06 05:05 Order name: Urine Dipstick-Ancillary (obtain specimen); Complete Time: 05:18 kdr 01/06 05:14 Order name: Accucheck; Complete Time: 05:18 kdr 01/06 05:14 Order name: Cardiac monitoring; Complete Time: 05:18 kdr 01/06 05:14 Order name: EKG - Nurse/Tech; Complete Time: 05:18 kdr 01/06 05:14 Order name: IV Saline Lock - Large Bore; Complete Time: 05:18 kdr 01/06 05:14 Order name: Labs collected and sent; Complete Time: 05:18 kdr 01/06 05:14 Order name: O2 Per Protocol; Complete Time: 05:18 kdr 01/06 05:14 Order name: O2 Sat Monitoring; Complete Time: 05:18 kdr 01/06 06:37 Order name: Magnesium EDMS 01/06 06:37 Order name: NT PRO-BNP EDMS 01/06 06:37 Order name: NT PRO-BNP EDMS 01/06 06:37 Order name: Phosphorus EDMS 01/06 06:37 Order name: Phosphorus EDMS 01/06 06:37 Order name: Protime (+INR) EDMS 01/06 06:37 Order name: Protime (+INR) EDMS 01/06 06:37 Order name: PTT, Activated Partial Thromb EDMS 01/06 06:37 Order name: PTT, Activated Partial Thromb EDMS 01/06 06:39 Order name: Glucose, Ancillary Testing EDMS Administered Medications: 05:00 Drug: NS 0.9% (30 ml/kg) 30 ml/kg Route: IV; Rate: bolus; Site: left forearm; rv 06:32 Follow up: IV Status: Completed infusion rv 06:12 Drug: Rocephin - (cefTRIAXone) 1 grams Route: IVPB; Infused Over: 30 mins; Site: right rv antecubital; 06:32 Follow up: IV Status: Completed infusion rv Disposition: 01/07/20 06:13 Hospitalization ordered by Radha Ordonez for Observation. Preliminary diagnosis is Pneumonia, unspecified organism - Aspiration. - Bed requested for Telemetry/MedSurg (observation). - Status is Observation. em - Condition is Fair. - Problem is new. - Symptoms have improved. Signatures: Dispatcher [employer] EDAR Courtney Sandhu RN ULYSSES Soctt Maguire RN RN sg Codey Still MD MD [facility] Shalom Jeffrey RN RN em Jakob Salazar, RN RN rv Corrections: (The following items were deleted from the chart) 06:33 06:13 Hospitalization Ordered by Radha Ordonez MD for Observation. Preliminary mw diagnosis is Pneumonia, unspecified organism - Aspiration. Bed requested for Telemetry/MedSurg (observation). Status is Observation. Condition is Fair. Problem is new. Symptoms have improved. kdr 11:26 06:33 01/07/2020 06:13 Hospitalization Ordered by Radha Ordonez MD for Observation. em Preliminary diagnosis is Pneumonia, unspecified organism - Aspiration. Bed requested for Telemetry/MedSurg (observation). Status is Observation. Condition is Fair. Problem is new. Symptoms have improved. mw
[2020-01-07] MEDS ORDERED: NA CHLORIDE 0.9% 1,000 ML ONE (06:16)
[2020-01-07] MEDS ORDERED: ALBUTEROL 2.5 MG/3 ML NEB SOL NEB PRN ×2 (06:32→18:00)
[2020-01-07] MEDS ORDERED: IPRATROPIUM BROM 0.5MG/2.5ML NEB PRN (06:32)
[2020-01-07] MEDS ORDERED: ACETAMINOPHEN 500 MG TAB PO PRN (06:32)
[2020-01-07] MEDS ORDERED: ONDANSETRON 4 MG/2 ML VIAL IV PRN (06:32)
[2020-01-07 06:46] LABS: Urine Blood NEGATIVE (NEG); Urine Glucose NEGATIVE (NEG); Urine Protein 1+ (NEG); Urine Specific Gravity 1.025 (1.005-1.030)
--- NOTE | 2020-01-07 07:23 | P.HP ---
Certification for Inpatient Patient admitted to: Inpatient With expected LOS: >2 Midnights Patient will require the following post-hospital care: Other ([facility] facility) Practitioner: I am a practitioner with admitting privileges, knowledge of patient current condition, hospital course, and medical plan of care. Services: Services provided to patient in accordance with Admission requirements found in Title 42 Section 412.3 of the Code of Federal Regulations Patient History Date of Service: 01/07/20 Reason for admission: Patient's trach was removed and aspiration pneumonia History of Present Illness: Patient 49-year-old gentleman who came to the hospital after his trach has come out. Patient has a history of Jackson's disease and schizophrenia. Patient has a trach and a PEG tube. He is in the hospital a couple months ago with aspiration pneumonia. His family has wanted continued aggressive care for him. His trach was replaced in the emergency room. However, chest x-ray revealed a right middle lobe aspiration pneumonia. Patient's white count was normal and he also had a normal procalcitonin level. Patient is additional labs are fairly unremarkable. He will get admitted to the hospital for IV antibiotic therapy. Allergies tomato Allergy (Mild, Verified 11/11/19 16:16) Rash Home Medications: Citalopram Hydrobromide [Citalopram HBr] 20 mg FT DAILY 11/11/19 Ipratropium/Albuterol Sulfate [Iprat-Albut 0.5-3(2.5) mg/3 ml] 1 amp IH Q6H 11/11/19 Lactose-Free Food/Fiber [Jevity 1.5 Dax Liquid] 80 ml FT CONT 11/11/19 Omeprazole Magnesium [Prilosec] 40 mg FT DAILY 11/11/19 calcium polycarbophiL [Fibercon*] 1 tab FT DAILY 11/11/19 diazePAM [Diazepam] 1 mg FT BID 11/11/19 risperiDONE [Risperdal 1 mg tab*] 1 mg PO BEDTIME 11/11/19 sulfaSALAzine [Sulfasalazine] 2 tab FT QID 11/11/19 CEFTRIAXONE/SWI 1gm [Rocephin 1 gm/10 ml Swi Ivp] 1 gm IV SEECOM 14 Days syr 11/20/19 Ferrous Sulfate [Ferrous Sulfate*] 325 mg FT BID #60 tab 11/20/19 VANCOMYCIN/NS 1 gm [Vancomycin 1 gm/250 ml Ns Ivpb] 1 gm IV DAILY #14 bag 11/20/19 - Past Medical/Surgical History Diabetic: No -: Genevieve's disease -: Schizophrenia -: GERD -: History of aspiration pneumonia now with trach -: PEG tube -: aphasia -: PEG tube placement -: Trach Psychosocial/ Personal History: Patient currently lives at the senior living. Prior to this he was a prisoner. Patient still has ankle bracelet. - Social History Smoking Status: Never smoker Alcohol use: No CD- Drugs: No Caffeine use: No Review of Systems 10-point ROS is otherwise unremarkable Physical Examination - Vital Signs Temperature: 99 F Blood Pressure: 110/70 Pulse: 90 Respirations: 18 Pulse Ox (%): 94 - Physical Exam General: Alert, Confused HEENT: Atraumatic, PERRLA, Mucous membr. moist/pink, EOMI, Sclerae nonicteric Neck: Other (Trach) Respiratory: Diminished, Other (Right lower lobe diminished breath sounds) Cardiovascular: Regular rate/rhythm, Normal S1 S2, Systolic murmur Gastrointestinal: Normal bowel sounds, Soft and benign, Non-distended, No tenderness, Other (PEG tube placement) Musculoskeletal: No clubbing, No tenderness Neurological: Abnormal gait, Abnormal speech, Abnormal strength, Abnormal tone, Dementia Lymphatics: No axilla or inguinal lymphadenopathy - Studies Laboratory Data (last 24 hrs) 01/07/20 05:03: PT 13.8 H, INR 1.17, APTT 33.4 01/07/20 05:03: Total Bilirubin 0.2, AST 16, ALT 62, Alkaline Phosphatase 123 H, Amylase 46, Lipase 40 L 01/07/20 05:03: Sodium 141, Potassium 3.7, BUN 19 H, Creatinine 0.58, Glucose 129 H 01/07/20 05:03: WBC 10.4, Hgb 11.8 L, Hct 35.5 L, Plt Count 331 Assessment & Plan - Problems (Diagnosis) (1) Trachea displaced Current Visit: Yes Status: Acute (2) Aspiration pneumonia Current Visit: Yes Status: Acute (3) Genevieve's disease Current Visit: Yes Status: Acute (4) Schizophrenia Current Visit: Yes Status: Acute (5) S/P percutaneous endoscopic gastrostomy (PEG) tube placement Current Visit: Yes Status: Acute - Plan 1. Continue with IV antibiotics 2. Awaiting sputum and blood culture 3. Repeat chest x-ray 4. Hold tube feeds times 24 hr; 5. If clinical symptoms worsen will get pulmonary consultation 6. Continue with nebs as needed 7. O2 per protocol 8. Continue with gentle hydration 9. Repeat labs including CBC and renal function in a.m. 10. GI and DVT prophylaxis Discharge Plan: [facility] Plan to discharge in: Greater than 2 days - Advance Directives Does patient have a Living Will: No Does patient have a Durable POA for Healthcare: No - Code Status/Comfort Care Code Status Assessed: Yes Code Status: Full Code Critical Care: No Time Spent Managing PTS Care (In Minutes): 45
[2020-01-07] MEDS: SULFASALAZINE FT SCH ×4 (09:00→19:31)
--- NOTE | 2020-01-07 11:15 | RAD REPORT ---
EXAM DESCRIPTION: [facility] Single View01/07/2020 5:24 am CLINICAL HISTORY: Shortness of breath COMPARISON: November 2019 FINDINGS: Tracheostomy tube in place Right base is hazy which may indicate a small pleural effusion/infiltrate. The left lung appears clear of acute infiltrate. The heart is normal size
[2020-01-07] MEDS: NA CHLORIDE 0.9% 1,000 ML IV SCH ×2 (11:32→19:36)
[2020-01-07] MEDS: DIAZEPAM 2 MG TABLET FT SCH ×2 (11:33→19:31)
[2020-01-07] MEDS: ENOXAPARIN 40 MG/0.4 ML SQ SCH (11:33)
[2020-01-07] MEDS ORDERED: PIPER/TAZO/NS 3.375gm 3.375 GM/100 ML BAG IVPB SCH (12:00)
[2020-01-07] MEDS ORDERED: POTASSIUM 25 MEQ EFFERV TAB PO ONE (12:00)
[2020-01-07] MEDS: PIPER/TAZO/NS 3.375gm 3.375 GM/100 ML BAG IVPB SCH (12:08)
[2020-01-07] MEDS: RISPERIDONE 1 MG TABLET PO SCH (19:31)
[2020-01-08] MEDS: PIPER/TAZO/NS 3.375gm 3.375 GM/100 ML BAG IVPB SCH ×3 (00:13→16:43)
[2020-01-08] MEDS ORDERED: METHYLPREDNISOLONE 125 MG INJ IV ONE (04:36)
--- NOTE | 2020-01-08 07:47 | RAD REPORT ---
EXAM DESCRIPTION: RAD - Chest Single View - 01/08/2020 5:15 am CLINICAL HISTORY: Decreased O2 COMPARISON: January 06 0516 hours TECHNIQUE: AP portable chest image was obtained 01/08/2020 5:15 am . FINDINGS: No new mass or consolidation. No diffuse pulmonary edema. Tracheostomy tube remains in peggy ce. Heart size and vasculature are stable. No new or enlarging pleural effusion. No pneumothorax seen . There are multiple skin fold artifacts lateral right chest. No acute bony abnormality seen. No acut e aortic findings suspected. IMPRESSION: Stable chest from prior day imaging.
--- NOTE | 2020-01-08 08:34 | P.DS ---
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 Patient has a history of [place]'s disease and schizophrenia. Patient has a trach and a PEG tube. He is in the hospital a couple months ago with aspiration pneumonia. His family has wanted continued aggressive care for him. His trach was replaced in the emergency room. However, chest x-ray revealed a right middle lobe aspiration pneumonia. Patient's white count was normal and he also had a normal procalcitonin level. Patient is additional labs are fairly unremarkable. He will get admitted to the hospital for IV antibiotic therapy. Hospital Course: Patient O2 sat was low however we bagged the patient and his O2 sats increase. Spoke to hospice nurse and patient is stable to transfer back to [facility]. Patient is a do not resuscitate. Vital Signs/Physical Exam: Temp Pulse Resp BP Pulse Ox 97.0 F 95 H 14 124/76 99 01/08/20 04:00 01/08/20 04:00 01/08/20 04:00 01/08/20 04:00 01/08/20 06:00 General: Unresponsive Laboratory Data at Discharge: WBC 10.4 K/uL (4.3-10.9) 01/07/20 05:03 Hgb 11.8 g/dL (13.6-17.9) L 01/07/20 05:03 Hct 35.5 % (39.6-49.0) L 01/07/20 05:03 Plt Count 331 K/uL (152-406) 01/07/20 05:03 PT 13.8 SECONDS (9.5-12.5) H 01/07/20 05:03 INR 1.17 01/07/20 05:03 APTT 33.4 SECONDS (24.3-36.9) 01/07/20 05:03 Sodium 141 mmol/L (136-145) 01/07/20 05:03 Potassium 3.7 mmol/L (3.5-5.1) 01/07/20 05:03 BUN 19 mg/dL (7-18) H 01/07/20 05:03 Creatinine 0.58 mg/dL (0.55-1.3) 01/07/20 05:03 Glucose 129 mg/dL (74-106) H 01/07/20 05:03 Total Bilirubin 0.2 mg/dL (0.2-1.0) 01/07/20 05:03 AST 16 U/L (15-37) 01/07/20 05:03 ALT 62 U/L (12-78) 01/07/20 05:03 Alkaline Phosphatase 123 U/L (45-117) H 01/07/20 05:03 Amylase 46 U/L (25-115) 01/07/20 05:03 Lipase 40 U/L (73-393) L 01/07/20 05:03 Home Medications: Citalopram Hydrobromide [Citalopram HBr] 20 mg FT DAILY 11/11/19 Ipratropium/Albuterol Sulfate [Iprat-Albut 0.5-3(2.5) mg/3 ml] 1 amp IH Q6H 11/11/19 Lactose-Free Food/Fiber [Jevity 1.5 Dax Liquid] 80 ml FT CONT 11/11/19 Omeprazole Magnesium [Prilosec] 40 mg FT DAILY 11/11/19 risperiDONE [Risperdal 1 mg tab*] 1 mg PO BEDTIME 11/11/19 sulfaSALAzine [Sulfasalazine] 2 tab FT Q6H 11/11/19 Baclofen [Lioresal] 10 mg FT TID 01/07/20 Hydrocodone 5/APAP 325 [[place] 5/325*] 1 tab FT BID 01/07/20 Hyoscyamine Sulfate [Levsin] 0.125 mg FT Q4HP PRN 01/07/20 LORazepam [Ativan] 0.5 mg FT BID 01/07/20 LORazepam [Ativan] 0.5 mg FT Q2HP PRN 01/07/20 Polyethylene Glycol 3350 [Miralax] 1 packet FT DAILY 01/07/20 Quetiapine [Seroquel] 50 mg FT BEDTIME 01/07/20 guaiFENesin [Guaifenesin] 10 ml FT Q12HP PRN 01/07/20 Patient Discharge Instructions: OK TO DC IV AND DC back to [facility]. FOLLOW-UP WITH hospice team at discharge. Notify hospice if symptoms worsen. CALL or TEXT DR. CLIFFORD AT [phone] IF ANY QUESTIONS REGARDING HOSPITAL STAY. PLEASE CALL THE FLOOR AT [phone] IF ANY MEDICATION OR NURSING QUESTIONS. Diet: PEG tube feeds Activity: Bedrest Time spent managing pt's care (in minutes): 35
[2020-01-08] MEDS: SULFASALAZINE FT SCH ×4 (09:00→20:16)
[2020-01-08] MEDS: ENOXAPARIN 40 MG/0.4 ML SQ SCH (09:03)
[2020-01-08] MEDS: DIAZEPAM 2 MG TABLET FT SCH ×2 (09:03→20:16)
[2020-01-08] MEDS: NA CHLORIDE 0.9% 1,000 ML IV SCH ×2 (09:40→14:56)
--- NOTE | 2020-01-08 10:38 | P.PN ---
Subjective Date of Service: 01/08/20 Chief Complaint: Patient's trach was removed and aspiration pneumonia Subjective: Other (This is an addendum to the discharge summary. Prior to discharge patient with low O2 saturations. Patient was evaluated.) Physical Examination - Vital Signs Temperature: 97.1 F Blood Pressure: 119/73 Pulse: 86 Respirations: 12 Pulse Ox (%): 93 - Physical Exam General: Other (Patient with poor response. Respiratory able to bag patient appropriately. Trach operating properly. Patient with agonal breathing.) Respiratory: Diminished (Bilateral), Other (Poor inspiration and expiration) Cardiovascular: Normal pulses, Regular rate/rhythm Other Physical/Emotional Findings: Patient with severe protein malnutrition. - Studies Microbiology Data (last 24 hrs): 01/07/20 06:31 Nasopharnyx Coronavirus COVID-19 PCR - Final Medications List Reviewed: Yes Assessment & Plan Discharge Plan: Other (Inpatient hospice) Plan to discharge in: 24 Hours Physician Review Additional Text: Impression: Tracheostomy displaced now in place Suspect right aspiration pneumonia End-stage Genevieve's disease Schizophrenia Severe protein malnutrition Plan: Case reviewed with hospitalist who took care the patient earlier. Hospitalist spoke to detention. Hospitalist reports patient is with hospice and DNR at detention. Patient is a lujan of the state. Patient now with agonal breathing. Patient appears to be worsening and declining. Patient with poor prognosis. Will recommend inpatient hospice at this time due to his poor prognosis. Will try to get a hold of hospice and with his medical power of personal injury attorney/state agent. There is a number to Isaiah Lujan: founder chairman and chief creative officerggdmeeh-[phone] on the chart who I will contact. I will have nursing also call detention to see if there is a different number. Time Spent Managing Pts Care (In Minutes): 35
[2020-01-08 11:55] LABS: Arterial Blood Carboxyhemoglob 0.8 % (0-1.5); Blood Gas Oxyhemoglobin 51.5 % (94-97); Blood O2 Saturation 52.6 % (92-98.5)
[2020-01-08] MEDS ORDERED: NA CHLORIDE 0.9% 1,000 ML ONE (13:10)
[2020-01-08] MEDS ORDERED: NOREPINEPHRINE 4 MG in D5W 250 ML IV PRN (13:13)
[2020-01-08] MEDS ORDERED: NOREPINEPHRINE 8 MG in D5W 500 ML IV PRN ×2 (13:13→13:24)
[2020-01-08] MEDS ORDERED: PIPER/TAZO/NS 3.375gm 3.375 GM/100 ML BAG IVPB ONE (13:30)
[2020-01-08] MEDS ORDERED: NA CHLORIDE 0.9% 1,000 ML IV ONE (14:00)
--- NOTE | 2020-01-08 15:23 | P.CNS ---
Date of Consult: 01/08/20 Reason for Consult: Respiratory failure Chief Complaint: Patient's trach was removed and aspiration pneumonia History of Present Illness: Patient is 49 years of age admitted with respiratory failure apparently is trach apparently he became very hypercapnic was transferred to the ICU and placed on a ventilator white count is normal currently stable on the ventilator Allergies tomato Allergy (Mild, Verified 01/07/20 14:19) Rash Home Medications: Citalopram Hydrobromide [Citalopram HBr] 20 mg FT DAILY 11/11/19 Ipratropium/Albuterol Sulfate [Iprat-Albut 0.5-3(2.5) mg/3 ml] 1 amp IH Q6H 11/11/19 Lactose-Free Food/Fiber [Jevity 1.5 Dax Liquid] 80 ml FT CONT 11/11/19 Omeprazole Magnesium [Prilosec] 40 mg FT DAILY 11/11/19 risperiDONE [Risperdal 1 mg tab*] 1 mg PO BEDTIME 11/11/19 sulfaSALAzine [Sulfasalazine] 2 tab FT Q6H 11/11/19 Baclofen [Lioresal*] 10 mg FT TID 01/07/20 Hydrocodone 5/APAP 325 [[place] 5/325*] 1 tab FT BID 01/07/20 Hyoscyamine Sulfate [Levsin TAB*] 0.125 mg FT Q4HP PRN 01/07/20 LORazepam [Ativan*] 0.5 mg FT BID 01/07/20 LORazepam [Ativan*] 0.5 mg FT Q2HP PRN 01/07/20 Polyethylene Glycol 3350 [Miralax] 1 packet FT DAILY 01/07/20 Quetiapine [Seroquel*] 50 mg FT BEDTIME 01/07/20 guaiFENesin [Guaifenesin] 10 ml FT Q12HP PRN 01/07/20 Amox/K Clav [Augmentin 600 MG/5 ML Susp] 600 ml PO BID #100 ml 01/08/20 - Past Medical/Surgical History Diabetic: No -: Genevieve's disease -: Schizophrenia -: GERD -: History of aspiration pneumonia now with trach -: PEG tube -: aphasia -: Respiratory Failure - Trach in place -: Septic Shock -: Acute Kidney Injury -: Anemia -: PEG tube placement -: Trach Psychosocial/ Personal History: Patient currently lives at the assisted. Prior to this he was a prisoner. Patient still has ankle bracelet. - Social History Smoking Status: Unknown if ever smoked Alcohol use: No CD- Drugs: No Caffeine use: No Place of Residence: [facility] Review of Systems is unable to be obtained Physical Examination Temp Pulse Resp BP Pulse Ox 97.1 F 86 12 119/73 93 01/08/20 10:38 01/08/20 10:38 01/08/20 10:38 01/08/20 10:38 01/08/20 10:38 General: Unresponsive Respiratory: Clear to auscultation bilaterally, Diminished Cardiovascular: No edema Integumentary: Other (Patient has a decubitus ulcer) - Problems (1) Respiratory failure Current Visit: Yes Status: Acute Plan: Patient is 49 years of age currently in respiratory failure back on a ventilator trach changed chemistries reviewed no evidence of sepsis continue with antibiotics sputum cultures
[2020-01-08 16:50] LABS: Arterial Blood Carboxyhemoglob 0.9 % (0-1.5); Blood Gas Oxyhemoglobin 89.1 % (94-97); Blood O2 Saturation 90.9 % (92-98.5)
[2020-01-08] MEDS ORDERED: MIDAZOLAM HCL 2 MG/2 ML INJ IV PRN (17:15)
[2020-01-08] MEDS ORDERED: HALOPERIDOL LACT 5 MG/ML INJ IV PRN (17:15)
[2020-01-08] MEDS ORDERED: NOREPINEPHRINE 8 MG in Dextrose 5%-Water 500 ML IV PRN (18:00)
[2020-01-08] MEDS: LORazepam 2 MG/ML VIAL IV PRN (20:00)
[2020-01-08] MEDS: RISPERIDONE 1 MG TABLET PO SCH (20:16)
[2020-01-08] MEDS: FENTANYL CITR 100 MCG/2 ML IV PRN (20:28)
[2020-01-09] MEDS: PIPER/TAZO/NS 3.375gm 3.375 GM/100 ML BAG IVPB SCH ×3 (00:54→17:47)
[2020-01-09] MEDS: NA CHLORIDE 0.9% 1,000 ML IV SCH ×3 (01:00→20:20)
[2020-01-09] MEDS: FENTANYL CITR 100 MCG/2 ML IV PRN (02:32)
--- NOTE | 2020-01-09 03:33 | P.PN ---
Date of Service: 01/08/20 Spoke to hospice nurse, Toña Mares RN, this morning. She had gone to patient's mother's house and had the mother sign a DNR for the patient. She states that patient is a do not resuscitate.
--- NOTE | 2020-01-09 03:49 | P.PN ---
Date of Service: 01/08/20 Once again had to speak to hospice nurse this afternoon. Apparently the mother has signed on the wrong line on the DNR form. She plans on going back out to the mother's home in the morning in getting DNR paperwork completed. She will notify us once this is done.
[2020-01-09 04:43] LABS: Absolute Lymphocytes (CBC) 0.7 K/uL (0.7-4.9); Basophils % 0.3 % (0-1.3); Hematocrit 27.6 % (39.6-49.0); MPV 8.8 fL (7.6-11.3); RBC Red Blood Cell Count 3.33 M/uL (4.33-5.43)
[2020-01-09 05:07] LABS: ALT/SGPT 38 U/L (12-78); AST/SGOT 27 U/L (15-37); Albumin 2.3 g/dL (3.4-5.0); Alkaline Phosphatase 94 U/L (45-117); BUN Blood Urea Nitrogen 26 mg/dL (7-18); Bicarbonate 38 mmol/L (21-32); Bilirubin Total 0.2 mg/dL (0.2-1.0); Glucose Level 95 mg/dL (74-106); Magnesium 1.7 mg/dL (1.8-2.4); Phosphorus 1.6 mg/dL (2.5-4.9); Potassium 3.7 mmol/L (3.5-5.1); Protein, Total 6.7 g/dL (6.4-8.2); Sodium Level 143 mmol/L (136-145)
[2020-01-09 06:30] VITALS: BMI 15.8
--- NOTE | 2020-01-09 07:16 | P.PN ---
Date of Service: 01/09/20 We were able to get patient off the ventilator. Patient was weaned off of the Levophed overnight. Patient on trach collar at 6 L. Respiratory rate in the 20s. May need to repeat ABG later today. Awaiting contact from hospice care nurse regarding DNR status as well.
[2020-01-09] MEDS: DIAZEPAM 2 MG TABLET FT SCH ×2 (09:00→20:15)
[2020-01-09] MEDS: SULFASALAZINE FT SCH ×4 (09:00→20:16)
--- NOTE | 2020-01-09 09:33 | RAD REPORT ---
EXAM DESCRIPTION: [place] Single View01/09/2020 6:44 am CLINICAL HISTORY: Respiratory failure COMPARISON: January 07 FINDINGS: Mild worsening in the left and mild improvement in right pulmonary opacities. Tracheostomy tube in place. There may be a small pleural effusion. Heart is normal size. PICC line in place IMPRESSION: Mild worsening in left and mild improvement in a right pulmonary opacities which may rep resent pulmonary edema or pneumonia
[2020-01-09] MEDS: ENOXAPARIN 40 MG/0.4 ML SQ SCH (10:01)
--- NOTE | 2020-01-09 10:03 | RAD REPORT ---
EXAM DESCRIPTION: RAD - Chest Single View - 01/08/2020 11:08 pm CLINICAL HISTORY: The patient is 49 years old and is Male; S/P PICC insertion TECHNIQUE: Frontal view of the chest. COMPARISON: No relevant prior studies available. FINDINGS: LUNGS: Confluent opacity within the right lower lobe is present with minimal opacity lef t lung base is noted. PLEURAL SPACE: Unremarkable. No pneumothorax. HEART: Unremarkable. No cardiomegaly. MEDIASTINUM: Unremarkable. BONES/JOINTS: Unremarkable. TUBES, LINES AND DEVICES: Tracheostomy tube is present with the tip at the level of the thoracic inlet. A right upper extremity PICC is present with the tip in the region of the SVC. IMPRESSION: 1. A right upper extremity PICC is present with the tip in the region of the SVC. 2. Multifocal opacities within the lungs, right greater than left. Findings may be secondary to an infectious process to include atypical/viral infection. Electronically signed by: Mary Antonio MD 01/09/2020 1:27 AM CDT Due to temporary technical issues with the PACS/Fluency reporting system, reports are being signed by the in house radiologist as a courtesy to ensure prompt reporting. The interpreting radiologist is f ully responsible for the content of the report.
[2020-01-09 10:28] LABS: Arterial Blood Carboxyhemoglob 0.6 % (0-1.5); Blood Gas Oxyhemoglobin 93.7 % (94-97); Blood O2 Saturation 95.5 % (92-98.5)
[2020-01-09] MEDS ORDERED: MAGNESIUM SULFATE 1 gm IVPB 1 GM/100 ML BAG IV ONE (12:00)
[2020-01-09] MEDS ORDERED: POTASSIUM PHOS IN 0.9 % NACL 15 MMOL/250 ML BAG IV ONE (12:00)
--- NOTE | 2020-01-09 12:16 | P.PN ---
Subjective Date of Service: 01/09/20 Chief Complaint: Respiratory failure Patient is now on trach collar he still hypoxic and hypercapnic unresponsive sputum cultures positive id pending hemodynamically stable Review of Systems is unable to be obtained Physical Examination - Vital Signs Temperature: 99.5 F Blood Pressure: 107/71 Pulse: 111 Respirations: 25 Pulse Ox (%): 99 - Physical Exam General: Unresponsive Respiratory: Clear to auscultation bilaterally Cardiovascular: No edema, Normal S1 S2 Other Physical/Emotional Findings: Patient with severe protein malnutrition. - Studies Medications List Reviewed: Yes Assessment & Plan - Problems (Diagnosis) (1) Respiratory failure Current Visit: Yes Status: Acute Plan: Patient admitted there with a respiratory failure I suspect is chronic he is chronically hypercapnic overall prognosis is very poor. I discussed with his mother and she agreed on hospice care DNR so far is blood cultures are negative gram-negative bella isolated in the sputum will await for id vital signs stable continue with Zosyn resume tube feeds transfer to the floor
--- NOTE | 2020-01-09 12:23 | P.PN ---
Subjective Date of Service: 01/09/20 Chief Complaint: Patient's trach was removed and aspiration pneumonia Subjective: No new changes, No C/O voiced (- Extubated earlier today, -still obtunded non responding) Review of Systems is unable to be obtained Physical Examination - Vital Signs Temperature: 99.5 F Blood Pressure: 107/71 Pulse: 111 Respirations: 25 Pulse Ox (%): 99 - Physical Exam General: Unresponsive, Other (On trach with high-flow O2) HEENT: Atraumatic, Normocephalic Neck: Supple, Other (Trach insitu) Respiratory: Crackles/rales, Rhonchi/gurgles (At bases) Cardiovascular: Regular rate/rhythm, Normal S1 S2 Gastrointestinal: Normal bowel sounds, Soft and benign (Peg tube insitu) Musculoskeletal: No clubbing, No swelling Neurological: Other (Nonverbal, obtunded,) Other Physical/Emotional Findings: Patient with severe protein malnutrition. - Studies Laboratory Last Values WBC 10.4 K/uL (4.3-10.9) 01/07/20 05:03 RBC 4.29 M/uL (4.33-5.43) L 01/07/20 05:03 Hgb 11.8 g/dL (13.6-17.9) L 01/07/20 05:03 Hct 35.5 % (39.6-49.0) L 01/07/20 05:03 MCV 82.7 fL (80-100) 01/07/20 05:03 MCH 27.6 pg (27.0-35.0) 01/07/20 05:03 MCHC 33.3 g/dL (32.0-36.0) 01/07/20 05:03 RDW 14.3 % (12.1-15.2) 01/07/20 05:03 Plt Count 331 K/uL (152-406) 01/07/20 05:03 MPV 8.8 fL (7.6-11.3) 01/07/20 05:03 Neutrophils % 87.9 % (41.7-73.7) H 01/07/20 05:03 Lymphocytes % 7.2 % (15.3-44.8) L 01/07/20 05:03 Monocytes % 4.6 % (3.3-12.3) 01/07/20 05:03 Eosinophils % 0.1 % (0-4.4) 01/07/20 05:03 Basophils % 0.2 % (0-1.3) 01/07/20 05:03 Absolute Neutrophils 9.2 K/uL (1.8-8.0) H 01/07/20 05:03 Segmented Neutrophils 84 % (40-80) H 01/07/20 05:03 Band Neutrophils 4 % (0-1) H 01/07/20 05:03 Absolute Lymphocytes 0.7 K/uL (0.7-4.9) 01/07/20 05:03 Lymphocytes 9 % (15-42) L 01/07/20 05:03 Monocytes 3 % (0-10) 01/07/20 05:03 Absolute Monocytes 0.5 K/uL (0.1-1.3) 01/07/20 05:03 Absolute Eosinophils 0.0 K/uL (0-0.5) 01/07/20 05:03 Absolute Basophils 0.0 K/uL (0-0.5) 01/07/20 05:03 Morphology Comment Not seen (NOT SEEN) 01/07/20 05:03 PT 13.8 SECONDS (9.5-12.5) H 01/07/20 05:03 INR 1.17 01/07/20 05:03 APTT 33.4 SECONDS (24.3-36.9) 01/07/20 05:03 Sodium 141 mmol/L (136-145) 01/07/20 05:03 Potassium 3.7 mmol/L (3.5-5.1) 01/07/20 05:03 Chloride 97 mmol/L (98-107) L 01/07/20 05:03 Carbon Dioxide 40 mmol/L (21-32) H 01/07/20 05:03 BUN 19 mg/dL (7-18) H 01/07/20 05:03 Creatinine 0.58 mg/dL (0.55-1.3) 01/07/20 05:03 Estimated GFR > 90 mL/min (=/>90) 01/07/20 05:03 Glucose 129 mg/dL (74-106) H 01/07/20 05:03 POC Glucose 129 mg/dl (65-120) H 01/07/20 04:54 Lactic Acid 0.5 mmol/L (0.4-2.0) 01/07/20 05:10 Calcium 9.5 mg/dL (8.5-10.1) 01/07/20 05:03 Total Bilirubin 0.2 mg/dL (0.2-1.0) 01/07/20 05:03 Direct Bilirubin < 0.1 mg/dL (0-0.2) 01/07/20 05:03 AST 16 U/L (15-37) 01/07/20 05:03 ALT 62 U/L (12-78) 01/07/20 05:03 Alkaline Phosphatase 123 U/L (45-117) H 01/07/20 05:03 Creatine Kinase 48 U/L (39-308) 01/07/20 05:03 CK-MB (CK-2) 2.0 ng/mL (0.3-3.6) 01/07/20 05:03 Rapid Troponin I < 0.02 ng/mL (0.0-0.045) 01/07/20 05:03 Serum Total Protein 8.6 g/dL (6.4-8.2) H 01/07/20 05:03 Albumin 3.0 g/dL (3.4-5.0) L 01/07/20 05:03 Globulin 5.6 g/dL (2.3-3.5) H 01/07/20 05:03 Albumin/Globulin Ratio 0.5 (1.1-1.8) L 01/07/20 05:03 Amylase 46 U/L (25-115) 01/07/20 05:03 Lipase 40 U/L (73-393) L 01/07/20 05:03 Procalcitonin < 0.08 ng/mL (<0.50) 01/07/20 05:03 Urine pH 7.0 (5.0-7.0) 01/07/20 05:34 Ur Specific [place] 1.025 (1.005-1.030) 01/07/20 05:34 Glucose (UA)(Auto) Negative (NEG) 01/07/20 05:34 Urine Ketones Negative (NEG) 01/07/20 05:34 Urine Blood Negative (NEG) 01/07/20 05:34 Urine Nitrite Negative (NEG) 01/07/20 05:34 Ur Leukocyte Esterase Negative (NEG) 01/07/20 05:34 Urine RBC Cancelled 01/07/20 05:14 Urine WBC Cancelled 01/07/20 05:14 Ur Squamous Epith Cells Cancelled 01/07/20 05:14 Ur Urothelial Cells Cancelled 01/07/20 05:14 Calcium Oxalate Crystal Cancelled 01/07/20 05:14 Uric Acid Crystals Cancelled 01/07/20 05:14 Triple Phos Crystals Cancelled 01/07/20 05:14 Other Crystals Cancelled 01/07/20 05:14 Amorphous Sediment Cancelled 01/07/20 05:14 Glitter Cells Cancelled 01/07/20 05:14 Urine Bacteria Cancelled 01/07/20 05:14 Hyaline Casts Cancelled 01/07/20 05:14 Fine Granular Casts Cancelled 01/07/20 05:14 Coarse Granular Casts Cancelled 01/07/20 05:14 Waxy Casts Cancelled 01/07/20 05:14 RBC Casts Cancelled 01/07/20 05:14 WBC Casts Cancelled 01/07/20 05:14 Urine Mucus Cancelled 01/07/20 05:14 Urine Other Cancelled 01/07/20 05:14 Urine Trichomonas Cancelled 01/07/20 05:14 Urine Yeast Cancelled 01/07/20 05:14 Ur Yeast w Hyphae Cancelled 01/07/20 05:14 Urine Yeast (Budding) Cancelled 01/07/20 05:14 Urine Sperm Cancelled 01/07/20 05:14 Urine Culture Reflexed Cancelled 01/07/20 05:14 Urine Total Volume Cancelled 01/07/20 05:14 Urine Total Protein 1+ (NEG) H 01/07/20 05:34 Medications List Reviewed: Yes Assessment And Plan Physician Review: Patient Assessed, Agree with Above Assessment and Plan Physician Review Additional Text: Impression: Tracheostomy displaced- now in place Suspect right aspiration pneumonia Acute on chronic respiratory failure-extubated, on BiPAP now End-stage Genevieve's disease Schizophrenia Severe protein malnutrition Plan: -continue to wean O2 needs per pulmonary -will resume tube feeding with Jevity -continue to hold sedative since patient is still clinically obtunded -reported family has withdrawn hospice but after discussion today with pulmonary, patient is more than now agreeable to resume hospice -with consult case management to Re arrange for hospice care at discharge -( number to Isaiah Lujan: nursing officerynattht-[phone] on the chart who I will contact. I will have nursing also call care home to see if there is a different number.)
[2020-01-09] MEDS: RISPERIDONE 1 MG TABLET PO SCH (20:15)
[2020-01-10] MEDS: PIPER/TAZO/NS 3.375gm 3.375 GM/100 ML BAG IVPB SCH ×3 (00:27→17:35)
[2020-01-10 04:26] LABS: Absolute Lymphocytes (CBC) 1.1 K/uL (0.7-4.9); Basophils % 0.3 % (0-1.3); Hematocrit 27.1 % (39.6-49.0); Lymphocytes % 9.3 % (15.3-44.8); RBC Red Blood Cell Count 3.26 M/uL (4.33-5.43)
[2020-01-10 04:36] LABS: ALT/SGPT 35 U/L (12-78); AST/SGOT 22 U/L (15-37); Albumin 2.2 g/dL (3.4-5.0); Alkaline Phosphatase 89 U/L (45-117); BUN Blood Urea Nitrogen 19 mg/dL (7-18); Bicarbonate 36 mmol/L (21-32); Bilirubin Total 0.3 mg/dL (0.2-1.0); Glucose Level 58 mg/dL (74-106); Magnesium 1.8 mg/dL (1.8-2.4); Phosphorus 1.7 mg/dL (2.5-4.9); Potassium 3.3 mmol/L (3.5-5.1); Protein, Total 6.5 g/dL (6.4-8.2); Sodium Level 141 mmol/L (136-145)
[2020-01-10] MEDS ORDERED: D50W 25 GM/50 ML SYRINGE/VIAL IV ONE (05:05)
[2020-01-10] MEDS ORDERED: MAGNESIUM SULFATE 1 gm IVPB 1 GM/100 ML BAG IV ONE (05:09)
[2020-01-10] MEDS: D5 0.9 NS 1,000 ML IV SCH ×2 (05:34→19:20)
[2020-01-10] MEDS: KCL 20 MEQ/100 mL IVPB 20 MEQ/100 ML BAG IV SCH ×4 (05:47→21:41)
[2020-01-10] MEDS ORDERED: POTASSIUM PHOS IN 0.9 % NACL 15 MMOL/250 ML BAG IV ONE (08:00)
[2020-01-10] MEDS: SULFASALAZINE FT SCH ×4 (09:00→20:32)
[2020-01-10] MEDS: DIAZEPAM 2 MG TABLET FT SCH (09:00)
[2020-01-10] MEDS: ENOXAPARIN 40 MG/0.4 ML SQ SCH (09:18)
--- NOTE | 2020-01-10 12:27 | P.PN ---
Subjective Date of Service: 01/11/20 Chief Complaint: Patient's trach was removed and aspiration pneumonia Patient is much more alert today hemodynamically stable currently tolerating trach collar Review of Systems is unable to be obtained Physical Examination - Vital Signs Temperature: 97.6 F Blood Pressure: 107/72 Pulse: 88 Respirations: 16 Pulse Ox (%): 100 - Physical Exam General: Alert Respiratory: Expiratory wheezes Cardiovascular: No edema, Regular rate/rhythm Other Physical/Emotional Findings: Patient with severe protein malnutrition. - Studies Medications List Reviewed: Yes Assessment & Plan - Problems (Diagnosis) (1) Respiratory failure Current Visit: Yes Status: Acute Plan: Patient has suspect has chronic respiratory failure discuss with mother he is not DNR will be transferred back to hospice care sputum shows Klebsiella has intermediate sensitivity to Augmentin I agree with Augmentin syrup as prognosis is very poor white count is declining agree with comfort care Qualifiers: Chronicity: chronic Physician Review: Patient Assessed, Agree with Above Assessment and Plan
--- NOTE | 2020-01-10 15:08 | P.DS ---
Admission Date: 01/07/20 Discharge Date: 01/10/20 Disposition: [facility]SFER TO [facility] Discharge Condition: FAIR Reason for Admission: Patient's trach was removed and aspiration pneumonia Procedures: Trach collar re-inserted Hospital Course: Tracheostomy displaced- now in place Suspect right aspiration pneumonia Acute on chronic respiratory failure-extubated, on BiPAP now End-stage Genevieve's disease Schizophrenia Severe protein malnutrition Plan: -patient with history of end-stage Vicco's disease, oxygen dependent via trach, admitted after family revoked hospice because of worsening shortness of breath. He was noted in the emergency room to have displaced trach and had the trach collar placed back appropriately. He was evaluated by respiratory her on Coreg placement of trach detachment. He was initially managed in the ICU on vent but was later weaned off a stool high-flow O2. He was started on empirical antibiotics. Sputum culture grew ESBL Klebsiella pneumonia. Family-mother who makes decision for patient and decision to revert back to hospice at discharge. [facility]. He was seen by Pulmonary during hospitalization. Decision made to continue patient on Augmentin since going home hospice Vital Signs/Physical Exam: Temp Pulse Resp BP Pulse Ox 97.6 F 88 16 107/72 100 01/10/20 12:27 01/10/20 12:27 01/10/20 12:27 01/10/20 12:27 01/10/20 12:27 General: Unresponsive, Comatose HEENT: Atraumatic, Normocephalic, Other (Dry oral mucosa) Neck: Supple, 2+ carotid pulse no bruit, JVD not distended Respiratory: Diminished, Dull Cardiovascular: Normal pulses, Regular rate/rhythm, Normal S1 S2 Capillary refill: <2 Seconds Gastrointestinal: Normal bowel sounds, Soft and benign, Non-distended, Other (Peg tube insitu) Neurological: Abnormal tone, Abnormal sensation Other Physical/Emotional Findings: Patient with severe protein malnutrition. Laboratory Data at Discharge: WBC 12.1 K/uL (4.3-10.9) H D 01/10/20 03:36 Hgb 9.2 g/dL (13.6-17.9) L 01/10/20 03:36 Hct 27.1 % (39.6-49.0) L 01/10/20 03:36 Plt Count 212 K/uL (152-406) 01/10/20 03:36 PT Cancelled 01/08/20 05:00 INR Cancelled 01/08/20 05:00 APTT Cancelled 01/08/20 05:00 Sodium 141 mmol/L (136-145) 01/10/20 03:36 Potassium 3.3 mmol/L (3.5-5.1) L 01/10/20 03:36 BUN 19 mg/dL (7-18) H 01/10/20 03:36 Creatinine 0.53 mg/dL (0.55-1.3) L 01/10/20 03:36 Glucose 58 mg/dL (74-106) L 01/10/20 03:36 Phosphorus Cancelled 01/10/20 05:00 Magnesium Cancelled 01/10/20 12:30 Total Bilirubin 0.3 mg/dL (0.2-1.0) 01/10/20 03:36 AST 22 U/L (15-37) 01/10/20 03:36 ALT 35 U/L (12-78) 01/10/20 03:36 Alkaline Phosphatase 89 U/L (45-117) 01/10/20 03:36 Triglycerides Cancelled 01/08/20 05:00 Cholesterol Cancelled 01/08/20 05:00 HDL Cholesterol Cancelled 01/08/20 05:00 Cholesterol/HDL Ratio Cancelled 01/08/20 05:00 Amylase 46 U/L (25-115) 01/07/20 05:03 Lipase 40 U/L (73-393) L 01/07/20 05:03 Home Medications: Citalopram Hydrobromide [Citalopram HBr] 20 mg FT DAILY 11/11/19 Ipratropium/Albuterol Sulfate [Iprat-Albut 0.5-3(2.5) mg/3 ml] 1 amp IH Q6H 11/11/19 Lactose-Free Food/Fiber [Jevity 1.5 Dax Liquid] 80 ml FT CONT 11/11/19 Omeprazole Magnesium [Prilosec] 40 mg FT DAILY 11/11/19 risperiDONE [Risperdal 1 mg tab*] 1 mg PO BEDTIME 11/11/19 sulfaSALAzine [Sulfasalazine] 2 tab FT Q6H 11/11/19 Baclofen [Lioresal*] 10 mg FT TID 01/07/20 Hydrocodone 5/APAP 325 [[place] 5/325*] 1 tab FT BID 01/07/20 Hyoscyamine Sulfate [Levsin TAB*] 0.125 mg FT Q4HP PRN 01/07/20 LORazepam [Ativan*] 0.5 mg FT BID 01/07/20 LORazepam [Ativan*] 0.5 mg FT Q2HP PRN 01/07/20 Polyethylene Glycol 3350 [Miralax] 1 packet FT DAILY 01/07/20 Quetiapine [Seroquel*] 50 mg FT BEDTIME 01/07/20 guaiFENesin [Guaifenesin] 10 ml FT Q12HP PRN 01/07/20 Amox/K Clav [Augmentin 600 MG/5 ML Susp] 600 ml PO BID #100 ml 01/08/20 New Medications: Amox/K Clav [Augmentin 600 MG/5 ML Susp] 600 ml PO BID #100 ml Diet: Feeding tube Physician Review: Patient Assessed, Agree with Above Assessment and Plan Time spent managing pt's care (in minutes): 35
[2020-01-10] MEDS: RISPERIDONE 1 MG TABLET PO SCH (20:55)
[2020-01-10] MEDS: LORazepam 2 MG/ML VIAL IV PRN (21:42)
[2020-01-11] MEDS: D5 0.9 NS 1,000 ML IV SCH (00:46)
[2020-01-11] MEDS: PIPER/TAZO/NS 3.375gm 3.375 GM/100 ML BAG IVPB SCH ×3 (00:46→17:23)
[2020-01-11 04:34] LABS: Absolute Lymphocytes (CBC) 0.9 K/uL (0.7-4.9); Basophils % 0.6 % (0-1.3); Hematocrit 28.2 % (39.6-49.0); Lymphocytes % 12.3 % (15.3-44.8); MPV 8.7 fL (7.6-11.3); RBC Red Blood Cell Count 3.45 M/uL (4.33-5.43)
[2020-01-11 05:00] LABS: ALT/SGPT 29 U/L (12-78); AST/SGOT 16 U/L (15-37); Albumin 2.2 g/dL (3.4-5.0); Alkaline Phosphatase 77 U/L (45-117); BUN Blood Urea Nitrogen 8 mg/dL (7-18); Bicarbonate 35 mmol/L (21-32); Bilirubin Total 0.2 mg/dL (0.2-1.0); Glucose Level 73 mg/dL (74-106); Magnesium 1.8 mg/dL (1.8-2.4); Phosphorus 2.5 mg/dL (2.5-4.9); Potassium 3.4 mmol/L (3.5-5.1); Protein, Total 6.3 g/dL (6.4-8.2); Sodium Level 144 mmol/L (136-145)
[2020-01-11] MEDS ORDERED: MAGNESIUM SULFATE 1 gm IVPB 1 GM/100 ML BAG IV ONE (06:02)
[2020-01-11] MEDS ORDERED: POTASSIUM PHOS IN 0.9 % NACL 15 MMOL/250 ML BAG IV ONE ×2 (06:03→08:00)
[2020-01-11] MEDS ORDERED: KCL 20 MEQ/100 mL IVPB 20 MEQ/100 ML BAG IV SCH ×2 (07:00)
[2020-01-11] MEDS: ENOXAPARIN 40 MG/0.4 ML SQ SCH (08:17)
[2020-01-11] MEDS: SULFASALAZINE FT SCH ×3 (08:18→17:00)
[2020-01-11] MEDS ORDERED: JEVITY 1.5 CAL LIQUID 1,000 ML BOT RTH SCH (14:00)
[2020-01-11 16:29] VITALS: BP 117/74; TEMP 98.1
[2020-01-11 16:53] VITALS: O2SAT 99
[2020-01-11] MEDS: LORazepam 2 MG/ML VIAL IV PRN (17:22)
== END 2020-01-11 18:16 | disposition hospice, inpatient (51) | DRG 208 ==
LOC: ER 04:28 → ERHOLD 06:46 → OBSVTOIN 07:18 → 4TH 10:38 → 2ND 01-08 06:24 → 3RD-ICU 01-08 12:58 → 2ND 01-09 23:30
PROVIDERS: ADMIT Hospitalist; ATTEND Internal Medicine Nephrology
PROC: 0B21XFZ Change Tracheostomy Device in Trachea, External Approach (ICD-10-PCS; 2020-01-07)
PROC: 5A1935Z Respiratory Ventilation, Less than 24 Consecutive Hours (ICD-10-PCS; principal; 2020-01-08)
PROC: 02HV33Z Insertion of Infusion Device into Superior Vena Cava, Percutaneous Approach (ICD-10-PCS; 2020-01-08)
DX: J69.0 Pneumonitis due to inhalation of food and vomit (principal); J96.22 Acute and chronic respiratory failure with hypercapnia; E43 Unspecified severe protein-calorie malnutrition; R40.20 Unspecified coma; G10 Huntington's disease; Z68.1 Body mass index [BMI] 19.9 or less, adult; J95.03 Malfunction of tracheostomy stoma; K21.9 Gastro-esophageal reflux disease without esophagitis; J15.0 Pneumonia due to Klebsiella pneumoniae; F20.9 Schizophrenia, unspecified; R40.2422 Glasgow coma scale score 9-12, at arrival to emergency department; Z99.81 Dependence on supplemental oxygen; Z79.02 Long term (current) use of antithrombotics/antiplatelets; Z79.891 Long term (current) use of opiate analgesic; Z79.899 Other long term (current) drug therapy; Z91.02 Food additives allergy status
CPT/HCPCS: 36415; 36569; 51702; 71045; 80048; 80053; 80076; 81003; 82150; 82550; 82553; 82805; 82947; 83605; 83690; 83735; 84100; 84132; 84145; 84484; 85025; 85610; 85730; 87040; 87070; 87077; 87186; 87205; 94003; 94640; 94760; 96361; 96365; 99291; 99292; J0696; J1630; J1650; J2543; J2930; J3010; J3475; J7030; J7040; J7042; J7060

== ENCOUNTER 2020-01-13 15:52 | Inpatient (IN) | payer SELFPAY, OTHER ==
[2020-01-13 16:25] LABS: Arterial Blood Carboxyhemoglob 0.8 % (0-1.5); Blood Gas Oxyhemoglobin 97.3 % (94-97); Blood O2 Saturation 98.8 % (92-98.5)
[2020-01-13] MEDS ORDERED: NA CHLORIDE 0.9% 500 ML ONE ×2 (16:43→22:02)
[2020-01-13] MEDS ORDERED: NA CHLORIDE 0.9% 1,000 ML ONE ×2 (16:43→17:45)
[2020-01-13 17:08] LABS: Protime INR 1.05
--- NOTE | 2020-01-13 17:19 | RAD REPORT ---
EXAM DESCRIPTION: RAD - Chest Single View - 01/13/2020 5:06 pm CLINICAL HISTORY: spcpr;Dyspnea Chest pain. COMPARISON: Chest Single View dated 01/09/2020; Chest Single View dated 01/08/2020; Chest Single View dated 01/08/2020; Chest Single View dated 01/07/2020 FINDINGS: Portable technique limits examination quality. External defibrillator pad obscures the majority of the right lung. The left lung is grossly clear. T racheostomy tube tip appears above the alex. Cardiac size is upper limit of normal.
--- NOTE | 2020-01-13 17:20 | EDPHYS ---
Physician Documentation [facility] Name: Ulises Cervantes Age: 49 yrs Sex: Male : 1970 Arrival Date: 01/13/2020 Time: 16:06 Bed 2 Private MD: ED Physician Javed Chung HPI: 01/12 16:20 This 49 yrs old Black Male presents to ER via EMS with complaints of DYSPNEA, TRACH AND tamara CPR. 16:20 The patient has shortness of breath at rest. Onset: The symptoms/episode began/occurred tamara just prior to arrival. The patient's shortness of breath has no apparent modifying factors. Pre-hospital course: The arrest was witnessed Bystanders at the scene performed CPR. ACLS details: SEE ELIZA. WASTED MALE, FULL CODE, GUALLPA , TRACH AND PEG. - Immunization history:: Adult Immunizations unknown, Adult Immunizations up to date. - Social history:: Smoking status: Patient denies any tobacco usage or history of. ROS: 16:23 Constitutional: Negative for fever, chills, and weight loss. tamara 16:23 Unable to obtain ROS due to baseline dementia, comatose state, SP CPR. Exam: 16:23 Constitutional: The patient appears emaciated, frail, in obvious distress, moderately tamara distressed. 16:23 ENT: Posterior pharynx: no acute changes, Airway: normal, no evidence of obstruction, TRACH. 16:23 Neck: External neck: TRACH SHILEY 4.0 CUFFED. 16:23 Cardiovascular: Rate: tachycardic, Rhythm: regular, Pulses: Pulses are 4+ in bilateral radial, brachial, femoral, popliteal, posterior tibial and and dorsalis pedis arteries.. Heart sounds: normal, Edema: is not appreciated. 16:23 Abdomen/GI: Inspection: SCAPHOID, Bowel sounds: normal, Palpation: abdomen is soft and non-tender, in all quadrants, Liver: no appreciated palpable abnormalities, Hernia: not appreciated. 17:15 ECG was reviewed by the Attending Physician. tamara 17:16 Chest/axilla: Normal chest wall appearance and motion. Nontender with no deformity. tamara No lesions are appreciated. Vital Signs: 16:15 BP 110 / 72; Pulse 106; Resp 17; Temp 97.9; Pulse Ox 100% ; bp 17:15 BP 102 / 49; Pulse 107; Resp 18; Temp 96.5; Pulse Ox 100% ; bp 17:33 BP 83 / 54; Pulse 107; Resp 18; Temp 96.9(C); Pulse Ox 100% on ETT vent; em 18:25 BP 81 / 64; Pulse 104; Resp 18; Temp 98.4(C); Pulse Ox 100% on ETT vent; em 19:15 BP 85 / 58; Pulse 106; Resp 18; Temp 99(C); Pulse Ox 100% ; jd3 20:12 BP 102 / 57; Pulse 107; Resp 18; Temp 100.1(C); Pulse Ox 100% ; jd3 21:00 BP 95 / 67; Pulse 105; Resp 17; Temp 100.2(C); Pulse Ox 100% on ETT vent; jd3 MDM: 16:07 Patient medically screened. [facility] 16:27 Data reviewed: vital signs, nurses notes, lab test result(s), EKG, radiologic studies, [facility] CT scan, plain films. 16:28 Differential diagnosis: CHF exacerbation, Chronic Obstructive Pulmonary Disease cardiac tamara arrest, respiratory arrest, asphyxiation, Myocardial Infarction pneumonia, Pneumothorax pulmonary edema, reactive airway disease, Sepsis. Antibiotic administration: MERREM. Differential Diagnosis altered mental status, sepsis, flu. Immunization status:. 16:30 Data interpreted: monitoring analyst: rate is 106 beats/min, rhythm is regular, Pulse tamara oximetry: on ventilator is 100 %. 7.39/73/184/36.6. 17:11 ED course: DEPILATED PT, TRACH, PEG AND GUALLPA CPR AT MD, FULL CODE, TO ICU, DR COLLIER. [facility] 17:14 Counseling: I had a detailed discussion with the patient and/or guardian regarding: the [facility] historical points, exam findings, and any diagnostic results supporting the discharge/admit diagnosis, lab results, radiology results, the need for further work-up and treatment in the hospital, ABG 7.319/73.2/184/36.6. 01/12 16:19 Order name: Basic Metabolic Panel; Complete Time: 17:24 [facility] 01/12 16:19 Order name: CBC with Diff [facility] 01/12 16:19 Order name: LFT's; Complete Time: 17:24 [facility] 01/12 16:19 Order name: Magnesium; Complete Time: 17:24 [facility] 01/12 16:19 Order name: NT PRO-BNP; Complete Time: 17:24 [facility] 01/12 16:19 Order name: PT-INR; Complete Time: 17:23 [facility] 01/12 16:19 Order name: Troponin (emerg Dept Use Only); Complete Time: 17:24 [facility] 01/12 16:19 Order name: Blood Culture Adult (2) [facility] 01/12 16:19 Order name: Flu; Complete Time: 18:26 [facility] 01/12 16:19 Order name: COVID-19 [facility] 01/12 16:19 Order name: Procalcitonin; Complete Time: 18:26 [facility] 01/12 16:19 Order name: Lactate; Complete Time: 17:24 [facility] 01/12 16:19 Order name: ABG; Complete Time: 17:23 [facility] 01/12 16:21 Order name: Glucose, Ancillary Testing; Complete Time: 17:13 [facility] 01/12 16:19 Order name: XRAY Chest (1 view); Complete Time: 18:26 [facility] 01/12 16:19 Order name: EKG; Complete Time: 16:21 [facility] 01/12 16:19 Order name: CT Head Brain wo Cont; Complete Time: 18:26 [facility] 01/12 16:48 Order name: Strep sv 01/12 17:13 Order name: Urine Culture [facility] 01/12 17:25 Order name: Urine Dipstick--Ancillary (enter results) 01/12 17:26 Order name: Urine Dipstick-Ancillary; Complete Time: 18:26 [facility] 01/12 20:15 Order name: Lactate Sepsis 2 HR Follow-up [facility] 01/12 16:19 Order name: Cardiac monitoring; Complete Time: 16:33 [facility] 01/12 16:19 Order name: EKG - Nurse/Tech; Complete Time: 16:33 [facility] 01/12 16:19 Order name: IV Saline Lock; Complete Time: 16:33 [facility] 01/12 16:19 Order name: Labs collected and sent; Complete Time: 16:33 [facility] 01/12 16:19 Order name: O2 Per Protocol; Complete Time: 16:33 [facility] 01/12 16:19 Order name: O2 Sat Monitoring; Complete Time: 16:33 [facility] 01/12 16:20 Order name: IV Saline Lock - Large Bore; Complete Time: 16:33 [facility] 01/12 17:13 Order name: Urine Dipstick-Ancillary (obtain specimen); Complete Time: 17:26 tamara EC:15 Rate is 104 beats/min. Rhythm is regular. QRS Sanders is Normal. SD interval is normal. tamara QRS interval is normal. QT interval is normal. No Q waves. T waves are Normal. No ST changes noted. Clinical impression: Sinus tachycardia and No evidence of ischemia. Interpreted by me. Reviewed by me. Administered Medications: 16:30 Drug: NS 0.9% 500 ml Route: IV; Rate: bolus; Site: right antecubital; bp 17:32 Follow up: IV Status: Completed infusion; IV Intake: 500ml em 16:30 Drug: NS 0.9% 1000 ml Route: IV; Rate: 125 ml/hr; Site: right antecubital; bp 21:00 Follow up: Response: No adverse reaction; IV Status: Infusion continued upon admission jd3 16:30 Drug: Meropenem 1 grams Route: IV; Rate: per protocol; Site: right antecubital; bp 17:32 Follow up: IV Status: Completed infusion; IV Intake: 100ml em 18:05 Drug: D50W 50 ml Route: IVP; Site: left antecubital; em 19:00 Follow up: Response: No adverse reaction jd3 18:10 Drug: NS 0.9% 1000 ml Route: IV; Rate: 1 bolus; Site: left antecubital; em 19:00 Follow up: Response: No adverse reaction; IV Status: Completed infusion; IV Intake: jd3 1000ml 18:15 Drug: vancoMYCIN 1 grams Route: IVPB; Infused Over: 2 hrs; Site: left antecubital; em 21:00 Follow up: Response: No adverse reaction; IV Status: Infusion continued upon admission jd3 20:08 Drug: NS 0.9% 500 ml Route: IV; Rate: bolus; Site: left antecubital; jd3 21:00 Follow up: Response: No adverse reaction; IV Status: Completed infusion; IV Intake: jd3 500ml 20:08 Drug: Tylenol Suppository 650 mg Route: SD; jd3 21:00 Follow up: Response: No adverse reaction jd3 Disposition: 01/13/20 17:19 Hospitalization ordered by Selina Collire for Inpatient Admission. Preliminary diagnosis are Respiratory failure, unspecified - S/P CPR, Acidosis, Respiratory failure, unspecified with hypercapnia, Tracheostomy status, Gastrostomy status, Hypoglycemia, unspecified, Severe sepsis with septic shock. - Bed requested for Intensive Care Unit. - Status is Inpatient Admission. jd3 - Condition is Serious. - Problem is new. - Symptoms have improved. Signatures: Dispatcher [employer] Javed Mckenzie MD MD cha Munoz, Edgar, RN ULYSSES em Vania Taylor RN RN Jared Dawson RN RN jd3 Isaiah Olivarez RN RN Buddy Miranda RN RN [email or web address] Corrections: (The following items were deleted from the chart) 17:25 17:19 Hospitalization Ordered by Selina Collier MD for Inpatient Admission. Preliminary [facility] diagnosis is Respiratory failure, unspecified - S/P CPR; Acidosis; Respiratory failure, unspecified with hypercapnia; Tracheostomy status; Gastrostomy status. Bed requested for Intensive Care Unit. Status is Inpatient Admission. Condition is Serious. Problem is new. Symptoms have improved. [facility] 19:00 17:25 01/13/2020 17:19 Hospitalization Ordered by Selina Collier MD for Inpatient cg Admission. Preliminary diagnosis is Respiratory failure, unspecified - S/P CPR; Acidosis; Respiratory failure, unspecified with hypercapnia; Tracheostomy status; Gastrostomy status; Hypoglycemia, unspecified. Bed requested for Intensive Care Unit. Status is Inpatient Admission. Condition is Serious. Problem is new. Symptoms have improved. [facility] 19:36 19:00 01/13/2020 17:19 Hospitalization Ordered by Selina Collier MD for Inpatient tamara Admission. Preliminary diagnosis is Respiratory failure, unspecified - S/P CPR; Acidosis; Respiratory failure, unspecified with hypercapnia; Tracheostomy status; Gastrostomy status; Hypoglycemia, unspecified. Bed requested for Intensive Care Unit. Status is Inpatient Admission. Condition is Serious. Problem is new. Symptoms have improved. 21:21 19:36 01/13/2020 17:19 Hospitalization Ordered by Selina Collier MD for Inpatient jd3 Admission. Preliminary diagnosis is Respiratory failure, unspecified - S/P CPR; Acidosis; Respiratory failure, unspecified with hypercapnia; Tracheostomy status; Gastrostomy status; Hypoglycemia, unspecified; Severe sepsis with septic shock. Bed requested for Intensive Care Unit. Status is Inpatient Admission. Condition is Serious. Problem is new. Symptoms have improved. [facility]
--- NOTE | 2020-01-13 17:20 | RAD REPORT ---
EXAM DESCRIPTION: CT - Head Brain Wo Cont - 01/13/2020 5:15 pm CLINICAL HISTORY: DECLINING STATE Headache, drowsiness COMPARISON: No comparisons TECHNIQUE: All CT scans are performed using dose optimization technique as appropriate and may inclu de automated exposure control or mA/KV adjustment according to patient size. FINDINGS: No intracranial hemorrhage, hydrocephalus or extra-axial fluid collection.Prominent cerebe llar atrophy seen.No areas of brain edema or evidence of midline shift. The paranasal sinuses and mastoids are clear. The calvarium is intact. IMPRESSION: No acute intracranial abnormality.
--- NOTE | 2020-01-13 17:20 | ER ---
Nurse's Notes [facility] Name: Ulises Cervantes Age: 49 yrs Sex: Male : 1970 Arrival Date: 01/13/2020 Time: 16:06 Bed 2 Private MD: Diagnosis: Respiratory failure, unspecified-S/P CPR;Acidosis;Respiratory failure, unspecified with hypercapnia;Tracheostomy status;Gastrostomy status;Hypoglycemia, unspecified;Severe sepsis with septic shock Presentation: 01/12 16:15 Chief complaint: EMS states: [facility] STAFF BEGAN CPR DURING WOUND CARE. EMS ARRIVED bp TO FIND ROSC. PT MENTATION AND PHYSICAL CONDITION AT BASELINE. Coronavirus screen: Proceed with normal triage. Ebola Screen: No symptoms or risks identified at this time. Initial Sepsis Screen: Does the patient meet any 2 criteria? No. Patient's initial sepsis screen is negative. Does the patient have a suspected source of infection? No. Patient's initial sepsis screen is negative. Risk Assessment: Do you want to hurt yourself or someone else? Patient reports no desire to harm self or others. Onset of symptoms is unknown. 16:15 Method Of Arrival: EMS: [facility] bp 16:15 Acuity: KEZIA 2 bp Triage Assessment: 16:15 General: Appears in no apparent distress. Behavior is unresponsive. Pain: Denies pain. bp EENT: No deficits noted. Neuro: Level of Consciousness is unresponsive. Cardiovascular: Rhythm is sinus tachycardia. Respiratory: Airway via trache Respiratory effort is ABSENT. GI: No signs and/or symptoms were reported involving the gastrointestinal system. : No signs and/or symptoms were reported regarding the genitourinary system. Derm: Decubitus located on sacrum. - Immunization history:: Adult Immunizations unknown, Adult Immunizations up to date. - Social history:: Smoking status: Patient denies any tobacco usage or history of. Screenin:15 Abuse screen: Denies threats or abuse. Denies injuries from another. Nutritional bp screening: No deficits noted. Tuberculosis screening: No symptoms or risk factors identified. Fall Risk None identified. Assessment: 16:15 General: SEE TRIAGE NOTE. bp 17:07 Reassessment: PT RETURNED FROM RAD. bp 18:00 Reassessment: pt waking up and moving eyes around, pt nonverbal at this time. em 18:45 Reassessment: RT at bedside suctioning, pt gag reflex intact, pt unresponsive to verbal em stimuli. 19:00 General: Appears comfortable, Behavior is calm. Pain: Unable to use pain scale. Patient jd3 is disoriented. Does not appear to understand pain scale. Neuro: Level of Consciousness is awake, responsive to voice.. Oriented to none. Cardiovascular: Heart tones present Capillary refill < 3 seconds Patient's skin is warm and dry. Rhythm is sinus tachycardia. Respiratory: Airway via trache Respiratory effort is even, unlabored, Respiratory pattern is regular, symmetrical, Breath sounds are clear bilaterally. GI: No signs and/or symptoms were reported involving the gastrointestinal system. Bowel sounds present X 4 quads. Abd is soft and non tender X 4 quads. : Decker in place to gravity drainage. EENT: No signs and/or symptoms were reported regarding the EENT system. Derm: Skin is intact, Skin is dry, Skin is normal, Skin temperature is warm. Musculoskeletal: No signs and/or symptoms reported regarding the musculoskeletal system. 20:20 Reassessment: No changes from previously documented assessment. Patient and/or family jd3 updated on plan of care and expected duration. Pain level reassessed. report given to Donell ARORA. 21:00 Reassessment: Patient and/or family updated on plan of care and expected duration. Pain jd3 level reassessed. pt taken to ICU with Nurse, RT, and plant and maintenance technician. Neuro: Level of Consciousness is awake, responsive to voice. Oriented to none. Cardiovascular: Capillary refill < 3 seconds Patient's skin is warm and dry. Respiratory: Airway is patent via trache Respiratory effort is even, unlabored, Respiratory pattern is regular, symmetrical. Vital Signs: 16:15 BP 110 / 72; Pulse 106; Resp 17; Temp 97.9; Pulse Ox 100% ; bp 17:15 BP 102 / 49; Pulse 107; Resp 18; Temp 96.5; Pulse Ox 100% ; bp 17:33 BP 83 / 54; Pulse 107; Resp 18; Temp 96.9(C); Pulse Ox 100% on ETT vent; em 18:25 BP 81 / 64; Pulse 104; Resp 18; Temp 98.4(C); Pulse Ox 100% on ETT vent; em 19:15 BP 85 / 58; Pulse 106; Resp 18; Temp 99(C); Pulse Ox 100% ; jd3 20:12 BP 102 / 57; Pulse 107; Resp 18; Temp 100.1(C); Pulse Ox 100% ; jd3 21:00 BP 95 / 67; Pulse 105; Resp 17; Temp 100.2(C); Pulse Ox 100% on ETT vent; jd3 ED Course: 16:06 Patient arrived in ED. aa5 16:07 Javed Chung MD is Attending Physician. tamara 16:14 Isaiah Olivarez, ULYSSES is Primary Nurse. bp 16:15 Patient has correct armband on for positive identification. Bed in low position. Call bp light in reach. Side rails up X2. 16:15 Maintain EMS IV. Dressing intact. Good blood return noted. Site clean \T\ dry. Gauge \T\ bp site: 20 GAUGE R AC. 16:17 Triage completed. bp 16:32 Arm band placed on. bp 16:40 Initial lab(s) drawn, by me, sent to lab. Inserted saline lock: 22 gauge in left em antecubital area, using aseptic technique. Blood collected. 17:06 XRAY Chest (1 view) In Process Unspecified. EDMS 17:15 CT Head Brain wo Cont In Process Unspecified. EDMS 17:17 Selina Nicole MD is Hospitalizing Provider. tamara 20:12 Cleaned of incontinence. jd3 21:00 No provider procedures requiring assistance completed. Patient admitted, IV remains in jd3 place. Administered Medications: 16:30 Drug: NS 0.9% 500 ml Route: IV; Rate: bolus; Site: right antecubital; bp 17:32 Follow up: IV Status: Completed infusion; IV Intake: 500ml em 16:30 Drug: NS 0.9% 1000 ml Route: IV; Rate: 125 ml/hr; Site: right antecubital; bp 21:00 Follow up: Response: No adverse reaction; IV Status: Infusion continued upon admission jd3 16:30 Drug: Meropenem 1 grams Route: IV; Rate: per protocol; Site: right antecubital; bp 17:32 Follow up: IV Status: Completed infusion; IV Intake: 100ml em 18:05 Drug: D50W 50 ml Route: IVP; Site: left antecubital; em 19:00 Follow up: Response: No adverse reaction jd3 18:10 Drug: NS 0.9% 1000 ml Route: IV; Rate: 1 bolus; Site: left antecubital; em 19:00 Follow up: Response: No adverse reaction; IV Status: Completed infusion; IV Intake: jd3 1000ml 18:15 Drug: vancoMYCIN 1 grams Route: IVPB; Infused Over: 2 hrs; Site: left antecubital; em 21:00 Follow up: Response: No adverse reaction; IV Status: Infusion continued upon admission jd3 20:08 Drug: NS 0.9% 500 ml Route: IV; Rate: bolus; Site: left antecubital; jd3 21:00 Follow up: Response: No adverse reaction; IV Status: Completed infusion; IV Intake: jd3 500ml 20:08 Drug: Tylenol Suppository 650 mg Route: MA; jd3 21:00 Follow up: Response: No adverse reaction jd3 Intake: 17:32 IV: 500ml; Total: 500ml. em 17:32 IV: 100ml; Total: 600ml. em 19:00 IV: 1000ml; Total: 1600ml. jd3 21:00 IV: 500ml; Total: 2100ml. jd3 Outcome: 17:19 Decision to Hospitalize by Provider. tamara 21:00 Admitted to ICU accompanied by nurse, accompanied by tech, via stretcher, room ICU 8, jd3 with oxygen, on monitor, with chart, Report called to Donell ARORA 21:00 Condition: stable 21:00 Instructed on the need for admit. 21:21 Patient left the ED. jd3 Signatures: Dispatcher [employer] Javed Mckenzie MD MD cha Munoz, Edgar RN RN Sydney Farrar RN RN Jared Street RN RN jd3 Peltier, Brian, RN RN bp Corrections: (The following items were deleted from the chart) 20:14 20:12 BP 102 / 57; Pulse 107bpm; Resp 18bpm; Spontaneous; Pulse Ox 100%; Temp 100.1F jd3 Catheter; jd3 21:19 20:20 Reassessment: report given to Donell metzger jmauro
[2020-01-13 17:21] LABS: ALT/SGPT 29 U/L (12-78); AST/SGOT 13 U/L (15-37); Albumin 2.5 g/dL (3.4-5.0); Alkaline Phosphatase 89 U/L (45-117); BUN Blood Urea Nitrogen 12 mg/dL (7-18); Bilirubin Direct < 0.1 mg/dL (0-0.2); Glucose Level 61 mg/dL (74-106); Magnesium 2.2 mg/dL (1.8-2.4); NT PRO-BNP 2628 pg/mL (<125); Potassium 4.9 mmol/L (3.5-5.1); Protein, Total 7.6 g/dL (6.4-8.2); Sodium Level 143 mmol/L (136-145); Troponin (Emerg Dept Use Only) 0.13 ng/mL (0.0-0.045)
[2020-01-13 17:22] LABS: Bilirubin Total < 0.1 mg/dL (0.2-1.0)
[2020-01-13 17:23] LABS: Bicarbonate 41 mmol/L (21-32)
[2020-01-13 17:33] LABS: Urine Blood 2+ (NEG); Urine Glucose NEGATIVE (NEG); Urine Protein 2+ (NEG); Urine pH 5.5 (5.0-7.0)
[2020-01-13] MEDS ORDERED: VANCOMYCIN 1 GM/VIAL ONE (17:45)
[2020-01-13] MEDS ORDERED: D50W 25 GM/50 ML SYRINGE/VIAL IV ONE (17:45)
[2020-01-13] MEDS ORDERED: NA CHLORIDE 0.9% 250 ML ONE (17:45)
[2020-01-13 20:10] LABS: Absolute Lymphocytes (CBC) 0.7 K/uL (0.7-4.9); Basophils % 0.3 % (0-1.3); Hematocrit 29.1 % (39.6-49.0); Lymphocytes % 6.1 % (15.3-44.8); MPV 8.5 fL (7.6-11.3)
[2020-01-13] MEDS ORDERED: propofoL 1,000 MG/100 ML VIAL IV PRN (20:31)
[2020-01-13] MEDS ORDERED: HALOPERIDOL LACT 5 MG/ML INJ IV PRN (20:31)
[2020-01-13] MEDS ORDERED: NA CHLORIDE 0.9% 250 ML IV PRN (20:31)
[2020-01-13] MEDS ORDERED: ACETAMINOPHEN 500 MG TAB FT PRN (20:31)
[2020-01-13] MEDS ORDERED: MIDAZOLAM HCL 2 MG/2 ML INJ IV PRN (20:31)
[2020-01-13] MEDS ORDERED: LORazepam 2 MG/ML VIAL IV PRN (20:31)
[2020-01-13] MEDS ORDERED: ONDANSETRON 4 MG/2 ML VIAL IV PRN (20:31)
[2020-01-13] MEDS ORDERED: FENTANYL CITR 100 MCG/2 ML IV PRN (20:31)
[2020-01-13] MEDS ORDERED: NA CHLORIDE 0.9% 500 ML IV ONE (21:51)
[2020-01-13] MEDS: NA CHLORIDE 0.9% 1,000 ML IV SCH (21:57)
[2020-01-13] MEDS: FAMOTIDINE 20 MG/2 ML VIAL IV SCH (21:59)
[2020-01-13 22:35] VITALS: BMI 16.0
[2020-01-14] MEDS: Meropenem 1000 MG/VIAL IV SCH ×2 (00:03→08:29)
--- NOTE | 2020-01-14 02:58 | HP ---
Date of Admission: 01/13/2020 Code Status: From previous records shows DNR, however patient was coded at the nursing facility. CPR was done. We will need to investigate further. Patient was on hospice. No family at the [facility]. Apparently, there is a mother who makes decisions. Chief Complaint: Cardiac arrest. History Of Present Illness: Patient is a 49-year-old male with past medical history of [place] di sease, schizophrenia, has a trach, PEG tube, who was just discharged from the hospital on 01/10/2020, comes back to the hospital for cardiac arrest. Apparently, CPR was done. According to previous rec ords and discharge summary on the , he was made DNR and is on hospice care. It is unclear if the out of hospital DNR was signed, we will need to contact family. Patient has had multiple admissions recently and family usually want aggressive care for the patient. Patient was found to have elevate d troponin level. Lactate was 3.7. ABG showed pH of 7.32, pCO2 was 73, pO2 was 184, bicarb was 36. Head CT scan was negative. Chest x-ray showed grossly clear lungs, no apparent pneumonia was seen. Patient has had a history of infection of the trach with ESBL on the and will be covered with b road-spectrum IV antibiotics. Blood cultures were obtained. Influenza screen was negative. COVID s creen was also obtained. Patient was then referred for admission. There are no family at the [facility]. Patient is unable to cooperate with history taking due to his medical condition. Past Medical History: Genevieve's disease, schizophrenia, GERD, history of aspiration pneumonia, no w with trach. Surgical History: PEG tube placement, tracheostomy placement. Allergies: TO TOMATOES CAUSES RASH. Medications: List reviewed. Social History: Patient never smoked. No alcohol use. Lives in assisted. Prior to that was a prisoner, apparently is a lujan of the state, but also has mother who makes decisions for him, was on hospice care prior to this admission at the nursing facility. Review of Systems: Unable to obtain due to patient's medical condition, however respiratory is as per HPI. Physical Examination: Vital Signs: Blood pressure 110/72, pulse 106, respirations 17, temperature 97.9. General: Alert and awake, however, nonverbal. Does not follow any commands. HEENT: Normocephalic, atraumatic. PERRLA. EOMI. Neck: Trach collar in place. CV: S1, S2. Peripheral pulses present. Respiratory: Diminished breath sounds. No use of accessory muscles. No wheezing. Gastrointestinal: Abdomen is soft, nondistended. PEG tube in place. Extremities: No clubbing, cyanosis, or edema. Neuro: The patient does not follow commands. Patient has abnormal strength and tone. Laboratory Data: Sodium 143, potassium 4.9, chloride 99, CO2 41, BUN 12, creatinine 0.71, glucose 61 , lactate 3.7, calcium 9.2, magnesium 2.2, AST 13, ALT 29. Troponin 0.13. BNP 2628. Albumin 2.5. Procalcitonin 0.05. UA; nitrite negative, leukocyte esterase negative. ABG; pH 7.32, pCO2 73.2, pO2 184, bicarb 36.6. INR 1.05. WBC is pending. Influenza screen is negative. Blood cultures and thr oat culture and COVID screening has been obtained. Imaging Studies: Chest x-ray; left lung grossly clear. Right lung is obscured by pads. Head CT sca n is negative. Assessment: A 49-year-old male with, 1.Acute respiratory failure. Patient is already trached, currently on ventilation. We will consult Pulmonology for ventilation management. 2.Cardiac arrest, unclear etiology. Patient had CPR performed. Consider Cardiology consultation. Obtain echocardiogram. 3.[place]'s disease. 4.Metabolic acidosis. Lactate is 3.7, likely secondary to cardiac arrest. 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 We will cover with broad-spectrum IV antibiotics with meropenem and vancomycin. Last culture results were from 01/08/20 20. 6.Status post PEG tube for dysphagia. 7.Gastroesophageal reflux disease. We will continue with Pepcid. 8.Schizophrenia. Continue home medications per feeding tube. 9.Deep vein thrombosis prophylaxis with Lovenox. Plan: Admit patient to ICU. We will need to clarify patient's code status and contact the family, n umber listed under next kin and person notify, corporate ethics officer Isaiah Lujan, was contacted but no answer . Overall poor prognosis. We will consult child protective services social worker to resume hospice. /DANIEL Voice ID: [id number]
[2020-01-14] MEDS: NA CHLORIDE 0.9% 1,000 ML IV SCH (05:00)
[2020-01-14 05:03] LABS: Arterial Blood Carboxyhemoglob 0.6 % (0-1.5); Blood O2 Saturation 98.5 % (92-98.5)
[2020-01-14] MEDS: VANCOMYCIN 1 GM in NA CHLORIDE 0.9% 250 ML IVPB SCH ×2 (05:15→18:00)
[2020-01-14] MEDS ORDERED: VANCOMYCIN 1 GM/VIAL ONE (05:16)
[2020-01-14] MEDS ORDERED: NA CHLORIDE 0.9% 250 ML ONE (05:18)
[2020-01-14 05:43] LABS: ALT/SGPT 23 U/L (12-78); AST/SGOT 21 U/L (15-37); Albumin 2.1 g/dL (3.4-5.0); Alkaline Phosphatase 65 U/L (45-117); BUN Blood Urea Nitrogen 12 mg/dL (7-18); Bicarbonate 32 mmol/L (21-32); Bilirubin Total 0.2 mg/dL (0.2-1.0); Glucose Level 78 mg/dL (74-106); Magnesium 1.6 mg/dL (1.8-2.4); Potassium 4.4 mmol/L (3.5-5.1); Protein, Total 5.9 g/dL (6.4-8.2); Sodium Level 146 mmol/L (136-145)
[2020-01-14 05:46] LABS: Absolute Lymphocytes (CBC) 1.3 K/uL (0.7-4.9); Basophils % 0.3 % (0-1.3); Lymphocytes % 12.3 % (15.3-44.8); MPV 9.1 fL (7.6-11.3); RBC Red Blood Cell Count 3.22 M/uL (4.33-5.43)
[2020-01-14] MEDS ORDERED: MAGNESIUM SULFATE 1 gm IVPB 1 GM/100 ML BAG IV ONE (07:00)
--- NOTE | 2020-01-14 07:15 | P.PN ---
Date of Service: 01/14/20 I spoke to patient's mother who confirmed that the family want to change his code status to DNR.
[2020-01-14] MEDS: D5 0.9 NS 1,000 ML IV SCH ×2 (08:25→16:00)
[2020-01-14] MEDS: Meropenem 1,000 MG in NA CHLORIDE 0.9% 100 ML IV SCH ×2 (08:28→17:12)
[2020-01-14] MEDS: FAMOTIDINE 20 MG/2 ML VIAL IV SCH (08:47)
[2020-01-14] MEDS ORDERED: VITAL HP 1,000 ML BOT FT SCH (09:00)
[2020-01-14] MEDS ORDERED: ENOXAPARIN 40 MG/0.4 ML SQ SCH (09:00)
--- NOTE | 2020-01-14 09:03 | RAD REPORT ---
EXAM DESCRIPTION: [facility] Single View01/14/2020 6:45 am CLINICAL HISTORY: Shortness breath COMPARISON: January 12 FINDINGS: Mild to moderate bilateral pulmonary opacities are without significant change. Tracheostomy tube in place. IMPRESSION: No significant change in mild to moderate bilateral pulmonary opacities which may repre sent pulmonary edema or pneumonia
[2020-01-14] MEDS ORDERED: BISACODYL 10 MG RECTAL SUPP RC PRN (09:28)
[2020-01-14] MEDS ORDERED: HYOSCYAMINE SULF 0.125 MG TAB SL PRN (09:28)
[2020-01-14] MEDS: SULFASALAZINE FT SCH ×2 (09:30→15:30)
[2020-01-14] MEDS ORDERED: IPRATROPIUM IH SCH (09:30)
[2020-01-14] MEDS ORDERED: [UNRECOGNIZED DRUG - OTHER] IH SCH (09:30)
[2020-01-14] MEDS ORDERED: ALBUTEROL SULFATE IH SCH (09:30)
--- NOTE | 2020-01-14 11:01 | PN ---
Date of Progress Note: 01/14/2020 Subjective: Patient seen and examined. Chart reviewed and case discussed with RN. Patient's COVID testing was negative. He is now off droplet isolation, much more awake and alert, being weaned off v entilator. Case discussed with Dr. Pathak. Patient's mother was able to be contacted last night b y the night doctor, Dr. Chandra, and they confirmed that the family wanted to change his code status t o DNR. Dr. Whitaker also spoke to the hospice nurse who were taking care of the patient previously to facilitate signing of the out of hospital DNR. Medications: List reviewed. Physical Examination: Vital Signs: Temperature 99.3, heart rate 90, blood pressure 95/74, respirations 18, O2 of 96% on 50 % FiO2. General: Awake, alert, nonverbal. Does not follow any commands, ill-appearing male. BMI of 16. CV: S1, S2. Regular rate and rhythm. Respiratory: Diminished breath sounds at the bases. No wheezing. Gastrointestinal: Abdomen is soft, nondistended. Positive bowel sounds. Extremities: No clubbing, cyanosis, or edema. Neuro: Patient moves all 4 extremities. Patient is nonverbal. Neck: Trach collar in place. Laboratory Data: Sodium 146, potassium 4.4, chloride 109, CO2 of 32, BUN 12, creatinine 0.61, glucos e 78, calcium 7.7, magnesium 1.6, albumin 2.1. WBC 10.7, H and H 8.8 and 26, platelets 242, neutroph ils 77%. COVID screening is negative. Influenza screen is negative. Rapid strep was also negative. Throat culture and sputum cultures are pending. Blood cultures are also pending at this time. [facility] st x-ray shows no significant change and mild to moderate bilateral pulmonary opacities, which may re present pulmonary edema or pneumonia. Assessment: 49-year-old male with; 1.Acute respiratory failure with hypoxia patient on mechanical ventilation with trach. Appreciate P ulmonology input. We will continue to wean off the ventilator. Patient is now do not resuscitate. 2.Cardiac arrest, unclear etiology. Patient did have cardiopulmonary resuscitation performed on sit e. If patient is not going towards hospice, we will have Cardiology consult and obtain echocardiogra m. It is possible that the patient did have hypoglycemia and was very hypoxic with O2s in the 60s to 70s, which may have contributed. 3.Capay disease. 4.Metabolic acidosis, improving likely due to cardiac arrest. Lactate is down to 2.3. 5.Pneumonia and trach infection with extended spectrum beta-lactamase. Continue with vancomycin and Merrem. We will repeat culture results. 6.Status post PEG tube for dysphagia. Continue feeds. 7.Gastroesophageal reflux disease. Continue with Pepcid. 8.Schizophrenia, stable. 9.Deep venous thrombosis prophylaxis with Lovenox. Plan: I would recommend inpatient hospice for this patient. We will discuss further with family. SAI Voice ID: [id number] Report ID: [id number]
[2020-01-14 12:28] VITALS: O2SAT 94
[2020-01-14] MEDS ORDERED: BACLOFEN 10 MG TAB FT SCH (14:00)
[2020-01-14 17:32] VITALS: BP 126/82; TEMP 97.4
[2020-01-14] MEDS ORDERED: QUETIAPINE 25 MG TAB FT SCH (21:00)
[2020-01-14] MEDS ORDERED: HYDROCODONE/APAP 5/325 MG TAB FT SCH (21:00)
[2020-01-14] MEDS ORDERED: guaiFENesin 100 MG/5 ML UCUP FT SCH (21:00)
--- NOTE | 2020-01-14 23:45 | DS ---
Date of Discharge: 01/14/2020 Consultants: Dr. Pathak with Pulmonology. Discharge Diagnoses: 1. Acute respiratory failure with hypoxia. 2. Cardiac arrest, unclear etiology. 3. Hypoglycemia. 4. Patient under investigation for Coronavirus disease-2019 negative. 5. Genevieve's disease. 6. Metabolic acidosis, improved. 7. 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 8. Status post PEG tube for dysphagia. 9. Gastroesophageal reflux disease. 10. Schizophrenia. Hospital Course: Patient is an unfortunate 49-year-old male with Genevieve's disease, schizophrenia, status post tracheostomy, PEG tube, who was recently discharged from the hospital to [facility] under hospice care and comfort measures and was DNR however, due to out of hospital DNR not being signed by the mother, patient was brought back to the hospital. Patient had apparent cardiac arrest. He was hypoglycemic and hypoxic. He may have had a mucus plug in the trachea or possible cardiogenic issue. He was found to be somewhat acidotic, hypoxic with acidosis, lactate 3.7. Chest x-ray was essentially clear. He was tested for COVID, which was negative. He had recent infection of Klebsiella ESBL producing on the 26 and was started on IV antibiotics with meropenem and vancomycin. Patient was able to be weaned off ventilator quickly. He had mild elevation in his troponin level, which was likely due to the CPR. His repeat troponin level was negative. His lactate improved with IV fluids and treatment. His ABG also showed improvement with hypoxia and hypercapnia improved. Patient's repeat cultures are still pending at this time. 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 Patient is nonverbal, has tracheostomy and PEG tube in place. Out of hospital DNR was now signed by the mother with the help of the [employer], apparently it has been faxed over to [facility] and the nurse who will be readmitting the patient has been made aware of his status. Efforts were made to ensure that when the patient is under hospice services and he is DNR out of hospital DNR is signed and present at the nursing facility that should he have another cardiac arrest that his medical power of deputy county attorney's wishes are for him to not be resuscitated and does wishes should be honored. Patient has a very poor prognosis overall due to his chronic medical conditions and has had frequent episodes to the hospital for similar issues. Patient was then accepted back to [facility] under hospice care and was discharged under care and comfort measures. For physical exam findings, please see progress note dictated on the day of discharge. Total time discharging patient was 42 minutes. /DANIEL Voice ID: [id number] Report ID: [id number] ARIEL
[2020-01-15] MEDS ORDERED: HOME MED 1 EA UNK (Citalopram Hydrobromide [Citalopram Hbr] 20 MG) FT SCH (09:00)
[2020-01-15] MEDS ORDERED: POLYETHYL GLY 3350 17 GM/DOSE FT SCH (09:00)
--- NOTE | 2020-01-15 13:13 | EKG ---
Test Date: 2020-01-13 Test Time: 16:17:48 Radiation Control Health Physicist: AMARILIS MEASUREMENT RESULTS: Intervals: Rate: 104 VA: 116 QRSD: 84 QT: 386 QTc: 507 [place]: P: 69 VA: 116 QRS: 85 T: 91 INTERPRETIVE STATEMENTS: Sinus tachycardia Otherwise normal ECG Electronically Signed On 01-15-20 13:12:21 CDT by Marc Wilson
== END 2020-01-14 18:13 | disposition hospice, inpatient (51) | DRG 296 ==
LOC: ER 15:52 → ERHOLD 18:11 → 3RD-ICU 20:41 → 2ND 01-14 12:15
PROVIDERS: ADMIT Family Medicine; ATTEND Family Medicine
PROC: 5A1935Z Respiratory Ventilation, Less than 24 Consecutive Hours (ICD-10-PCS; principal; 2020-01-13)
PROC: 8E0ZXY6 Isolation (ICD-10-PCS; 2020-01-13)
DX: I46.9 Cardiac arrest, cause unspecified (principal); J96.01 Acute respiratory failure with hypoxia; J96.02 Acute respiratory failure with hypercapnia; G10 Huntington's disease; E87.2 Acidosis; Z16.12 Extended spectrum beta lactamase (ESBL) resistance; T17.490A Other foreign object in trachea causing asphyxiation, initial encounter; Z66 Do not resuscitate; Z20.828 Contact with and (suspected) exposure to other viral communicable diseases; E16.2 Hypoglycemia, unspecified; Z93.1 Gastrostomy status; K21.9 Gastro-esophageal reflux disease without esophagitis; F20.9 Schizophrenia, unspecified; Z93.0 Tracheostomy status
CPT/HCPCS: 36415; 70450; 71045; 80048; 80053; 80076; 81003; 82805; 82947; 83605; 83735; 83880; 84145; 84484; 85025; 85610; 87040; 87070; 87081; 87086; 87088; 87205; 87804; 93005; 94002; 94003; 99285; J1630; J1650; J3475; J7030; J7040; J7042; U0002